=== PATIENT | female | born 1930 | race Caucasian/White ===

== ENCOUNTER 2016-05-31 08:30 | Inpatient (IN) | payer MEDICARE, BC ==
[2016-05-31] MEDS ORDERED: ASPIRIN 81 MG CHEW PO STA (08:49)
[2016-05-31] MEDS ORDERED: NITROGLYCERIN OINT 1 INCH/GM PACKET TOPICAL STA (08:49)
--- NOTE | 2016-05-31 08:54 | ED ---
General Adult HPI - General Chief complaint: Chest Pain Stated complaint: Chest Pain Time Seen by Provider: 05/31/16 08:40 Source: patient, RN notes reviewed Mode of arrival: ambulatory Limitations: no limitations - History of Present Illness Initial comments: This is an 85-year-old female who presents to the emergency department complaining of chest pain intermittently over the last 3 days per patient states it lasts upwards of an hour when it comes on. Patient denies any radiation of the pain. Patient states she denies any nausea or vomiting. Patient denies any diaphoresis. Patient denies any shortness of breath. Patient states on occasion when she is having chest pain she starts coughing hard and coughs up some yellow sputum and then she states it seems to relieve some of the chest pain. Patient denies any fever or chills. Patient denies any abdominal pain patient denies any headache patient denies any numbness weakness. Patient denies any lightheadedness dizziness or near syncopal episode. - Related Data Home Medications Medication Instructions Recorded Confirmed Omeprazole [PriLOSEC] 20 mg PO AC-BRKFST 03/16/14 05/31/16 Potassium Chloride 8 meq PO DAILY 03/16/14 05/31/16 Losartan/Hydrochlorothiazide 1 each PO DAILY 04/01/14 05/31/16 [Losartan-Hctz 100-25 mg Tab] Atorvastatin Calcium [Lipitor] 20 mg PO HS 05/31/16 05/31/16 Docusate Sodium [Dok] 100 - 200 mg PO DAILY 05/31/16 05/31/16 Allergies Allergy/AdvReac Type Severity Reaction Status Date / Time No Known Allergies Allergy Verified 05/31/16 10:05 Review of Systems ROS Statement: Those systems with pertinent positive or pertinent negative responses have been documented in the HPI. ROS Other: All systems not noted in ROS Statement are negative. Past Medical History Past Medical History: GERD/Reflux, Hyperlipidemia, Hypertension Additional Past Medical History / Comment(s): ruptured esophagus History of Any Multi-Drug Resistant Organisms: None Reported Past Surgical History: Appendectomy, Cholecystectomy Past Psychological History: No Psychological Hx Reported Smoking Status: Never smoker Past Alcohol Use History: None Reported Past Drug Use History: None Reported General Exam - General Exam Comments Initial Comments: GENERAL: Patient is well-developed and well-nourished. Patient is nontoxic and well- hydrated and is in mild distress. ENT: Neck is soft and supple. No significant lymphadenopathy is noted. Oropharynx is clear. Moist mucous membranes. Neck has full range of motion without eliciting any pain. EYES: The sclera were anicteric and conjunctiva were pink and moist. Extraocular movements were intact and pupils were equal round and reactive to light. Eyelids were unremarkable. PULMONARY: Unlabored respirations. Good breath sounds bilaterally. No audible rales rhonchi or wheezing was noted. CARDIOVASCULAR: Patient has an irregular heartbeat. ABDOMEN: Soft and nontender with normal bowel sounds. No palpable organomegaly was noted. There is no palpable pulsatile mass. SKIN: Skin is clear with no lesions or rashes and otherwise unremarkable. NEUROLOGIC: Patient is alert and oriented x3. Cranial nerves II through XII are grossly intact. Motor and sensory are also intact. Normal speech, volume and content. Symmetrical smile. MUSCULOSKELETAL: Normal extremities with adequate strength and full range of motion. No lower extremity swelling or edema. No calf tenderness. LYMPHATICS: No significant lymphadenopathy is noted PSYCHIATRIC: Normal psychiatric evaluation. Normal interpersonal interactions appears functionally intact in deals appropriately with others. No signs of depression. No signs of anxiety. Limitations: no limitations Course Vital Signs 05/31/16 05/31/16 05/31/16 08:38 09:18 10:24 Temperature 96.7 F L Pulse Rate 75 75 68 Respiratory 18 18 18 Rate Blood Pressure 167/75 156/73 139/73 O2 Sat by Pulse 97 97 98 Oximetry Medical Decision Making - Medical Decision Making EKG shows atrial fibrillation at 72 bpm QRS is 134 QTC is 464. Patient has a right bundle branch block. Patient has no history of atrial fibrillation the right have no old ekgs. Chest x-ray shows no new abnormality - Lab Data Result diagrams: 05/31/16 08:40 05/31/16 08:40 Lab Results 05/31/16 05/31/16 05/31/16 Range/Units 08:40 08:40 08:40 WBC 4.8 (3.8-10.6) k/uL RBC 4.26 (3.80-5.40) m/uL Hgb 11.7 (11.4-16.0) gm/dL Hct 36.0 (34.0-46.0) % MCV 84.4 (80.0-100.0) fL MCH 27.4 (25.0-35.0) pg MCHC 32.4 (31.0-37.0) g/dL RDW 13.1 (11.5-15.5) % Plt Count 238 (150-450) k/uL Neutrophils % 78 % Lymphocytes % 15 % Monocytes % 4 % Eosinophils % 0 % Basophils % 0 % Neutrophils # 3.8 (1.3-7.7) k/uL Lymphocytes # 0.7 L (1.0-4.8) k/uL Monocytes # 0.2 (0-1.0) k/uL Eosinophils # 0.0 (0-0.7) k/uL Basophils # 0.0 (0-0.2) k/uL PT (9.0-12.0) sec INR (<1.1) APTT (22.0-30.0) sec Sodium 143 (137-145) mmol/L Potassium 4.3 (3.5-5.1) mmol/L Chloride 105 (98-107) mmol/L Carbon Dioxide 21 L (22-30) mmol/L Anion Gap 17 mmol/L BUN 35 H (7-17) mg/dL Creatinine 1.78 H (0.52-1.04) mg/dL Est GFR (MDRD) Af Amer 33 (>60 ml/min/1.73 sqM) Est GFR (MDRD) Non-Af 27 (>60 ml/min/1.73 sqM) Glucose 134 H (74-99) mg/dL Calcium 10.2 (8.4-10.2) mg/dL Magnesium 1.2 L (1.6-2.3) mg/dL Total Bilirubin 1.3 (0.2-1.3) mg/dL AST 20 (14-36) U/L ALT 31 (9-52) U/L Alkaline Phosphatase 93 (38-126) U/L Total Creatine Kinase 42 (30-135) U/L CK-MB (CK-2) 1.4 (0.0-2.4) ng/mL CK-MB (CK-2) Rel Index 3.3 Troponin I 0.061 H* (0.000-0.034) ng/mL NT-Pro-B Natriuret Pep pg/mL Total Protein 7.5 (6.3-8.2) g/dL Albumin 4.5 (3.5-5.0) g/dL 05/31/16 05/31/16 Range/Units 08:40 08:40 WBC (3.8-10.6) k/uL RBC (3.80-5.40) m/uL Hgb (11.4-16.0) gm/dL Hct (34.0-46.0) % MCV (80.0-100.0) fL MCH (25.0-35.0) pg MCHC (31.0-37.0) g/dL RDW (11.5-15.5) % Plt Count (150-450) k/uL Neutrophils % % Lymphocytes % % Monocytes % % Eosinophils % % Basophils % % Neutrophils # (1.3-7.7) k/uL Lymphocytes # (1.0-4.8) k/uL Monocytes # (0-1.0) k/uL Eosinophils # (0-0.7) k/uL Basophils # (0-0.2) k/uL PT 11.5 (9.0-12.0) sec INR 1.2 (<1.1) APTT 23.1 (22.0-30.0) sec Sodium (137-145) mmol/L Potassium (3.5-5.1) mmol/L Chloride (98-107) mmol/L Carbon Dioxide (22-30) mmol/L Anion Gap mmol/L BUN (7-17) mg/dL Creatinine (0.52-1.04) mg/dL Est GFR (MDRD) Af Amer (>60 ml/min/1.73 sqM) Est GFR (MDRD) Non-Af (>60 ml/min/1.73 sqM) Glucose (74-99) mg/dL Calcium (8.4-10.2) mg/dL Magnesium (1.6-2.3) mg/dL Total Bilirubin (0.2-1.3) mg/dL AST (14-36) U/L ALT (9-52) U/L Alkaline Phosphatase (38-126) U/L Total Creatine Kinase (30-135) U/L CK-MB (CK-2) (0.0-2.4) ng/mL CK-MB (CK-2) Rel Index Troponin I (0.000-0.034) ng/mL NT-Pro-B Natriuret Pep 9910 pg/mL Total Protein (6.3-8.2) g/dL Albumin (3.5-5.0) g/dL Disposition Clinical Impression: Chest pain, New onset a-fib Disposition: ADMITTED IP TO THIS HOSP Referrals: Gibson Saldaña MD [Primary Care Provider] - 1-2 days Time of Disposition: 10:35
[2016-05-31 09:08] LABS: Basophils % (A) 0 %; CHCM 32.1; Eosinophils % (A) 0 %; HGB 11.7 gm/dL (11.4-16.0); Luc # (Auto) 0.11; Luc % (Auto) 2; Lymphocytes # (A) 0.7 k/uL (1.0-4.8); Lymphocytes % (A) 15 %; MCH 27.4 pg (25.0-35.0); MCHC 32.4 g/dL (31.0-37.0); MCV 84.4 fL (80.0-100.0); Mean Platelet Volume 7.1; Monocytes # (A) 0.2 k/uL (0-1.0); Monocytes % (A) 4 %; Neutrophils # (A) 3.8 k/uL (1.3-7.7); Neutrophils % (A) 78 %; RBC 4.26 m/uL (3.80-5.40); RDW 13.1 % (11.5-15.5); WBC 4.8 k/uL (3.8-10.6); WBC (Perox) 5.22
[2016-05-31 09:22] LABS: Calcium 10.2 mg/dL (8.4-10.2); Magnesium 1.2 mg/dL (1.6-2.3); Potassium 4.3 mmol/L (3.5-5.1); Total Bilirubin 1.3 mg/dL (0.2-1.3); Total Protein 7.5 g/dL (6.3-8.2)
[2016-05-31 09:32] LABS: INR 1.2 (<1.1); Partial Thromboplastin Time 23.1 sec (22.0-30.0); Prothrombin Time 11.5 sec (9.0-12.0)
--- NOTE | 2016-05-31 09:34 | XR ---
EXAMINATION TYPE: XR chest 2V DATE OF EXAM: 05/31/2016 9:27 AM COMPARISON: 10/13/1999 TECHNIQUE: PA and lateral views submitted. HISTORY: Pain FINDINGS: The lungs are clear and there is no pneumothorax, pleural effusion, or focal pneumonia. Somewhat co arsened interstitium. Arthropathy of the shoulders and scoliotic curvature of the spine. Degenerative changes noted. IMPRESSION: 1. No acute process. Correlate for interstitial chronic lung disease.
[2016-05-31 09:47] LABS: Creatine Kinase MB 1.4 ng/mL (0.0-2.4)
[2016-05-31 09:51] LABS: Troponin I 0.061 ng/mL (0.000-0.034)
[2016-05-31] MEDS ORDERED: NITROGLYCERIN SL TABS 0.4 MG TAB SUBLINGUAL PRN (10:38)
[2016-05-31] MEDS: MAG HYDROX/AL HYDROX/SIMETH 30 ML CUP PO SCH ×4 (15:07→23:20)
[2016-05-31 15:52] LABS: Creatine Kinase MB 1.1 ng/mL (0.0-2.4)
[2016-05-31 15:55] LABS: Troponin I 0.055 ng/mL (0.000-0.034)
[2016-05-31] MEDS: NITROGLYCERIN OINT 1 INCH/GM PACKET TOPICAL SCH (17:37)
[2016-05-31] MEDS: MAGNESIUM SULFATE-D5W PMX 1 GM in DEXTROSE/WATER 1 100ML.BAG IVPB SCH ×2 (18:59→21:28)
[2016-05-31 20:25] VITALS: RESP 16
[2016-05-31 20:59] LABS: Creatine Kinase MB 1.2 ng/mL (0.0-2.4)
[2016-05-31] MEDS ORDERED: ATORVASTATIN 20 MG TAB PO SCH (21:00)
[2016-05-31 21:14] LABS: Troponin I 0.063 ng/mL (0.000-0.034)
[2016-05-31] MEDS ORDERED: DOBUTamine DRIP for NUC MED 500 MG in DEXTROSE/WATER 1 250ML.BAG IV ONE (22:44)
[2016-05-31] MEDS: PANTOPRAZOLE 40 MG/10 ML VIAL IVP SCH (23:20)
--- NOTE | 2016-05-31 23:32 | HP ---
DATE OF ADMISSION: CHIEF COMPLAINT: Re-evaluation. HISTORY OF PRESENT ILLNESS: This 85-year-old female was admitted to the hospital with chest pain of 3 days' duration. The patient says the pain is intermittent; pain is lower sternal, high epigastric area. The patient said that during last night the pain got quite intense. The patient had subsequently vomiting, one episode, with relief of the discomfort. The patient has had similar symptoms in the past. She was felt to have gastroesophageal reflux with symptoms. The patient has history of hypertension. Patient has not been noted to have any atrial fibrillation. Patient is noted to be in atrial fibrillation today. The patient has no other associated symptoms of shortness of breath, diaphoresis, radiation of pain. The patient is afraid to eat because she feels it makes the pain worse. Patient denies any fever, chills, cough, congestion. Past medical history is significant for hypertension of long duration. The patient also has a history of colonic diverticulosis with a previous episode of diverticulitis, has a history of hyperlipidemia and severe degenerative arthritis. PERSONAL HISTORY: Nonsmoker. No alcohol. Medications include: 1. Omeprazole 20 mg daily. 2. Atorvastatin 20 mg daily. 3. Potassium chloride 8 mEq daily. 4. Hyzaar 100/25 one daily. 5. Tramadol for pain. SOCIAL HISTORY: Patient is and lives with her spouse. FAMILY MEDICAL HISTORY: Has one younger sister who has had a history of asthma. The patient has another sibling who ; he had a history of Parkinson's. There is family history of coronary artery disease late in life. REVIEW OF SYSTEMS: NEURO: Denies any headaches, dizziness. No double vision, blurred vision. No symptoms of TIA, syncope, seizures. PSYCH: No anxiety. CARDIAC: Present complaint of chest pain. No shortness of breath, cough, hemoptysis. GI: One episode of nausea and vomiting. Some heartburn. No diarrhea, constipation, hematochezia, melena. : No symptoms of dysuria, hematuria, urgency, frequency. EXTREMITIES: Denies pain, edema. CONSTITUTIONAL: No fever or chills. PHYSICAL EXAMINATION: Pleasant female in no distress. Vital signs reveal temperature 96.7, pulse 75, respirations 18, blood pressure 167/75, pulse ox 97% on 2 L. HEENT: Normocephalic. NECK: No JVD. Chest is clear to auscultation, percussion. Increased ( ) bilateral. CARDIAC: Distant heart sounds. S1, S2 with no gallops. Systolic murmur 2/6, left sternal border. ABDOMEN: Mild tenderness, high epigastric area. Bowel sounds active. Previous surgical scar of cholecystectomy. EXTREMITIES: Trace edema. Good pulses, both upper and lower extremities. Significant degenerative arthritic changes of the knees. Neurologically awake, alert, oriented with well-coordinated movements. Laboratory assessment: CBC which was normal. PT/PTT were normal. Electrolytes are normal. BUN 35, creatinine 1.78. Glucose was 134. Magnesium was 1.2. Troponin 0.061. Albumin 4.5. EKG: No acute changes except for atrial fibrillation. Chest x-ray reveals no acute changes. ASSESSMENT: 1. Chest pain, probably gastroesophageal. Cannot rule out cardiac. 2. History of hypertension. 3. Chronic kidney disease, stage III. 4. Degenerative arthritis. PLAN: Patient at present will be given Maalox, Protonix, IV hydration. Continue to monitor troponins and CPK, which have remained stable, not indicative of an acute infarct. Patient's BNP is elevated with no clear evidence of CHF. We will schedule the patient for a stress echo. Patient's condition discussed with the patient. Prognosis guarded.
[2016-06-01] MEDS: NITROGLYCERIN OINT 1 INCH/GM PACKET TOPICAL SCH ×3 (00:15→11:02)
[2016-06-01] MEDS: MAG HYDROX/AL HYDROX/SIMETH 30 ML CUP PO SCH ×3 (04:33→11:03)
[2016-06-01] MEDS ORDERED: DOBUTamine DRIP for NUC MED 500 MG in DEXTROSE/WATER 1 250ML.BAG IV ONE (05:00)
[2016-06-01 06:40] LABS: Calcium 9.5 mg/dL (8.4-10.2); Potassium 4.5 mmol/L (3.5-5.1)
[2016-06-01] MEDS ORDERED: PANTOPRAZOLE 40 MG TABLET PO SCH (07:30)
[2016-06-01] MEDS ORDERED: APIXABAN 2.5 MG TABLET PO SCH (09:00)
[2016-06-01] MEDS ORDERED: LOSARTAN-HCTZ 50-12.5 MG 1 EACH TAB PO SCH (09:00)
[2016-06-01] MEDS ORDERED: ASPIRIN 81 MG CHEW PO SCH (09:00)
[2016-06-01] MEDS ORDERED: ASPIRIN 325 MG TAB PO SCH (09:00)
[2016-06-01] MEDS ORDERED: POTASSIUM CHLORIDE ORAL LIQUID 40 MEQ/30 ML CUP PO SCH (09:00)
[2016-06-01] MEDS: PANTOPRAZOLE 40 MG/10 ML VIAL IVP SCH (11:02)
[2016-06-01 11:04] VITALS: BP 107/65; PULSE 70; TEMP 96.3
--- NOTE | 2016-06-01 11:26 | ECHOS ---
DATE OF SERVICE: 06/01/2016 AGE: 85Y SEX: F HT: 61" WT: 168 lbs. Protocol Husam: Others: Dobutamine Stress Echo Stage: 2 Dur. of Exercise: 4:00 *Heart Rate Blood Pressure *Rest: 70 Rest: 106/49 * *Max. Achieved: 134 Maximum BP: 130/64 85% PMHR: 114 100% PMHR: 134 *METS: - INDICATIONS: Chest pain. MEDICATIONS: Omeprazole, potassium chloride, losartan, docusate sodium, atorvastatin, calcium. STRESS DATA: Pretesting physical examination showed a heart rate of 70, pressure is 106/49 mmHg. Baseline EKG shows sinus rhythm. Dobutamine infusion at the dose of 10 mcg/kg per minute was initiated and increased to 10 mcg/kg per minute per protocol. Max heart rate was 134, which is about 100% of maximum predicted heart rate. Maximum blood pressure was 150-64 mmHg. Clinically, the patient did not have any symptoms and the EKG did not show any significant ST or T-wave echocardiogram images consistent with ischemia. ECHOCARDIOGRAM IMAGES: On echocardiogram images from parasternal long axis view, parasternal short axis view, apical 4 chambers and apical 2 chambers were obtained as the baseline images, at the peak of the heart rate, as well as on recovery and the echocardiogram images showed good augmentation in the left ventricular systolic function without any evidence of wall motion abnormalities consistent with ischemia. CONCLUSION: 1. Normal EKG in response to dobutamine. 2. Normal echocardiogram in response to dobutamine. 3. Essentially normal dobutamine stress echocardiogram for this patient.
--- NOTE | 2016-06-02 05:45 | PN ---
CHIEF COMPLAINT: Re-evaluation. HISTORY OF PRESENT ILLNESS: An 85-year-old female who presents to the hospital with chest pain, which is retrosternal and epigastric area at times a heaviness. She had an episode of some vomiting with relief. Patient has underlying history of hypertension, hyperlipidemia and symptoms suggestive of gastroesophageal reflux. She has had a previous history of cholecystectomy. The patient following admission had cardiac enzymes monitor which revealed elevated baseline troponins with no change in the CPK. The patient this morning is feeling fairly well. She denies any chest pain. Rhythm has been atrial fibrillation, stable. Patient denied any other symptoms. REVIEW OF SYSTEMS: NEURO: Denies any headaches, dizziness. PSYCH: No anxiety. CARDIAC: No chest pain, angina, palpitation. RESPIRATORY: No shortness of breath, cough. GI: No nausea, vomiting, abdominal pain, diarrhea. : No symptoms of dysuria, hematuria. EXTREMITIES: Denies pain or edema. CONSTITUTIONAL: No fever or chills. PHYSICAL EXAMINATION: Pleasant female in no distress. Vital signs revealed temperature 97.5, pulse 67, respirations 16, blood pressure 100/56, pulse ox 97% on room air. HEENT: Normocephalic. NECK: No JVD. CHEST: Clear to auscultation. CARDIAC: Normal S1, S2 with no gallops, no murmurs. Irregular rhythm. ABDOMEN: Soft. Bowel sounds are active. Extremities reveal no edema. The patient has significant degenerative arthritis knees. LABORATORY ASSESSMENT: Electrolytes which are normal. BUN 33, creatinine 1.56. Patient had a stress echo which does not reveal any suggestion of ischemia. ASSESSMENT: 1. Chest pain, probably gastroesophageal. 2. History of hypertension. 3. Hyperlipidemia on treatment. 4. Chronic kidney disease, stage III. 5. Degenerative arthritis, knees. PLAN: The patient is stable and in view of the negative stress test and response to antacids, it is ( ) that patient's symptoms are more related to gastroesophageal reflux and the patient is going to be discharged home on continued treatment with Protonix and using Maalox a.c. meals.
== END 2016-06-01 15:22 | disposition home or self-care (01) | DRG 392 ==
LOC: EC 08:30 → 6SEL 10:38 → OBSVTOIN 22:59
PROVIDERS: ADMIT Internal Medicine; ATTEND Internal Medicine
DX: K21.9 Gastro-esophageal reflux disease without esophagitis (principal); I48.91 Unspecified atrial fibrillation; N18.3 Chronic kidney disease, stage 3 (moderate); E78.5 Hyperlipidemia, unspecified; I45.10 Unspecified right bundle-branch block; I12.9 Hypertensive chronic kidney disease with stage 1 through stage 4 chronic kidney disease, or unspecified chronic kidney disease; K57.30 Diverticulosis of large intestine without perforation or abscess without bleeding; M19.90 Unspecified osteoarthritis, unspecified site; Z79.899 Other long term (current) drug therapy; Z82.49 Family history of ischemic heart disease and other diseases of the circulatory system
CPT/HCPCS: 36415; 71020; 80048; 80053; 80061; 82550; 82553; 83735; 83880; 84484; 85025; 85610; 85730; 87040; 93005; 93017; 93350; 94760; 96366; 99285

== ENCOUNTER → 2016-12-27 | Outpatient (CLI) | payer MEDICARE, BC ==
--- NOTE | 2016-12-27 10:09 | US ---
EXAMINATION TYPE: US kidneys/renal and bladder DATE OF EXAM: 12/27/2016 COMPARISON: NONE CLINICAL HISTORY: N17.9 Acute renal failure, N18.3 CKF stage 3. EXAM MEASUREMENTS: Right Kidney: 8.7 x 3.9 x 4.1 cm Left Kidney: 10.3 x 4.3 x 3.7 cm Right Kidney: Measuring small. No hydronephrosis, no cystic or solid mass visualized Left Kidney: Few cystic areas visualized in the upper pole, largest measuring 3.8 x 4.1 x 4.2 cm Bladder: Not fully distended, wnl as visualized Bilateral Jets seen: No, jets not visualized bilaterally Incidental finding: Spleen measuring large at 14.6 cm Some cortical thinning in right kidney is present. Spleen is enlarged in size measuring 14.6 cm on lo ng axis without focal intrasplenic mass. A few simple appearing cysts are scattered throughout the le ft kidney. Bladder is poorly distended and thus suboptimally evaluated. IMPRESSION: No hydronephrosis is evident bilaterally. Some cortical thinning in right kidney is seen which is sli ghtly smaller in size. Splenomegaly is noted and may warrant further clinical workup.
== END | disposition home or self-care (01) ==
LOC: RADUSWWP 09:27
PROVIDERS: ATTEND Internal Medicine
DX: R16.1 Splenomegaly, not elsewhere classified (principal); N18.3 Chronic kidney disease, stage 3 (moderate)
CPT/HCPCS: 76770

== ENCOUNTER 2017-01-12 11:44 | Inpatient (IN) | payer MEDICARE, BC ==
[2017-01-12] MEDS ORDERED: SODIUM CHLORIDE 0.9% 1,000 ML IV STA ×3 (12:21→15:05)
--- NOTE | 2017-01-12 12:24 | ED ---
Abdominal Pain HPI - General Chief Complaint: Abdominal Pain Stated Complaint: Abdominal pain/weakness Time Seen by Provider: 01/12/17 12:05 Source: patient, family Mode of arrival: ambulatory Limitations: no limitations - History of Present Illness Initial Comments: This is a 86-year-old female history of A. fib and renal failure from earlier admissions this year who is brought in by family because of decreased oral intake lethargy and dizziness. Apparently is started over the past couple weeks. The patient at this time is a poor historian her family states she does not want to eat. She complains some abdominal pain she points to the lower left quadrant. No reports of cough fevers chills nausea vomiting sweats dysuria hematuria or constipation diarrhea. She has had memory issues recently also. No trauma is reported. MD Complaint: abdominal pain - Related Data Home Medications Medication Instructions Recorded Confirmed Omeprazole [PriLOSEC] 20 mg PO AC-BID 03/16/14 01/12/17 Potassium Chloride 8 meq PO DAILY 03/16/14 01/12/17 Losartan/Hydrochlorothiazide 1 tab PO DAILY 04/01/14 01/12/17 [Losartan-Hctz 100-25 mg Tab] Atorvastatin Calcium [Lipitor] 20 mg PO HS 05/31/16 01/12/17 Warfarin Sodium [Coumadin] 4 mg PO DAILY 01/12/17 01/12/17 Allergies Allergy/AdvReac Type Severity Reaction Status Date / Time No Known Allergies Allergy Verified 01/12/17 12:23 Review of Systems ROS Statement: Those systems with pertinent positive or pertinent negative responses have been documented in the HPI. ROS Other: All systems not noted in ROS Statement are negative. 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 History of Any Multi-Drug Resistant Organisms: None Reported Past Surgical History: Appendectomy, Cholecystectomy, Tonsillectomy Additional Past Surgical History / Comment(s): EGD/colonoscopy Past Anesthesia/Blood Transfusion Reactions: No Reported Reaction, Motion Sickness Past Psychological History: No Psychological Hx Reported Smoking Status: Never smoker Past Alcohol Use History: None Reported Past Drug Use History: None Reported - Past Family History Father Family Medical History: Myocardial Infarction (MO) Additional Family Medical History / Comment(s): Father at the age of 62 yrs from a MO. Mother Family Medical History: No Reported History Additional Family Medical History / Comment(s): Mother was healthy and at the age of 89yrs. General Exam - General Exam Comments Initial Comments: This is a well-developed asthenic appearing female who does answer slowly seems to be awake and alert and oriented. Limitations: no limitations General appearance: alert, in no apparent distress Head exam: Present: atraumatic, normocephalic, normal inspection Eye exam: Present: normal appearance, PERRL, EOMI. Absent: scleral icterus, conjunctival injection, periorbital swelling ENT exam: Present: mucous membranes dry Neck exam: Present: normal inspection. Absent: tenderness, meningismus, lymphadenopathy Respiratory exam: Present: normal lung sounds bilaterally. Absent: respiratory distress, wheezes, rales, rhonchi, stridor Cardiovascular Exam: Present: irregular rhythm. Absent: systolic murmur, diastolic murmur, rubs, gallop, clicks GI/Abdominal exam: Present: soft, distended, tenderness (Slightly distended with increased tympany and mild left lower quadrant tenderness palpation), normal bowel sounds. Absent: guarding, rebound, rigid, bruit, pulsatile mass, hernia Rectal exam: Present: deferred Extremities exam: Present: normal inspection, full ROM, normal capillary refill. Absent: tenderness, pedal edema, joint swelling, calf tenderness Back exam: Present: normal inspection Neurological exam: Present: alert, oriented X3, CN II-XII intact Psychiatric exam: Present: normal affect, normal mood Skin exam: Present: warm, dry, intact, normal color. Absent: rash Course Vital Signs 01/12/17 01/12/17 01/12/17 11:55 12:06 12:16 Temperature 97.4 F L Pulse Rate 100 92 92 Respiratory 15 16 16 Rate Blood Pressure 64/41 75/49 73/46 O2 Sat by Pulse 98 97 Oximetry 01/12/17 01/12/17 01/12/17 12:21 12:36 12:51 Temperature Pulse Rate 92 83 83 Respiratory 16 20 20 Rate Blood Pressure 77/49 79/49 78/46 O2 Sat by Pulse 98 100 99 Oximetry 01/12/17 01/12/17 01/12/17 13:06 13:53 14:23 Temperature Pulse Rate 80 92 71 Respiratory 18 20 18 Rate Blood Pressure 81/51 87/49 86/53 O2 Sat by Pulse 99 95 95 Oximetry 01/12/17 01/12/17 14:40 15:28 Temperature Pulse Rate 91 88 Respiratory 20 18 Rate Blood Pressure 87/50 90/45 O2 Sat by Pulse 96 96 Oximetry - Reevaluation(s) Reevaluation #1: 01/12/17 15:48 I did reevaluate patient several occasions he remains awake and more alert after IV hydration. Her blood pressure initially did not improve much with fluids and later did become the. Medical Decision Making - Lab Data Result diagrams: 01/12/17 12:10 01/12/17 12:10 Lab Results 01/12/17 01/12/17 01/12/17 Range/Units 12:10 12:10 12:10 WBC 9.2 (3.8-10.6) k/uL RBC 4.32 (3.80-5.40) m/uL Hgb 11.5 (11.4-16.0) gm/dL Hct 36.8 (34.0-46.0) % MCV 85.1 (80.0-100.0) fL MCH 26.5 (25.0-35.0) pg MCHC 31.2 (31.0-37.0) g/dL RDW 14.6 (11.5-15.5) % Plt Count 381 (150-450) k/uL Neutrophils % (Manual) 64 % Band Neutrophils % 10 % Lymphocytes % (Manual) 17 % Monocytes % (Manual) 8 % Eosinophils % (Manual) 1 % Metamyelocytes % 1 % Neutrophils # (Manual) 6.80 (1.3-7.7) k/uL Lymphocytes # (Manual) 1.56 (1.0-4.8) k/uL Monocytes # (Manual) 0.74 (0-1.0) k/uL Eosinophils # (Manual) 0.09 (0-0.7) k/uL Metamyelocytes # (Man) 0.09 H (0) k/uL Nucleated RBCs 0 (0-0) /100 WBC Hypochromasia Slight Poikilocytosis (manual Present Anisocytosis (manual) Present PT (9.0-12.0) sec INR (<1.2) APTT (22.0-30.0) sec Sodium 134 L (137-145) mmol/L Potassium 3.0 L* (3.5-5.1) mmol/L Chloride 103 (98-107) mmol/L Carbon Dioxide 12 L (22-30) mmol/L Anion Gap 19 mmol/L BUN 87 H* (7-17) mg/dL Creatinine 2.64 H (0.52-1.04) mg/dL Est GFR (MDRD) Af Amer 21 (>60 ml/min/1.73 sqM) Est GFR (MDRD) Non-Af 17 (>60 ml/min/1.73 sqM) Glucose 127 H (74-99) mg/dL Plasma Lactic Acid Allen (0.7-2.0) mmol/L Calcium 9.1 (8.4-10.2) mg/dL Magnesium (1.6-2.3) mg/dL Total Bilirubin 0.4 (0.2-1.3) mg/dL AST 15 (14-36) U/L ALT 26 (9-52) U/L Alkaline Phosphatase 66 (38-126) U/L Ammonia (<30) umol/L Total Creatine Kinase <20 L (30-135) U/L CK-MB (CK-2) 1.7 (0.0-2.4) ng/mL CK-MB (CK-2) Rel Index Troponin I 0.018 (0.000-0.034) ng/mL Total Protein 6.2 L (6.3-8.2) g/dL Albumin 3.6 (3.5-5.0) g/dL Amylase 40 (30-110) U/L Lipase 331 H (23-300) U/L Urine Color Urine Appearance (Clear) Urine pH (5.0-8.0) Ur Specific [place] (1.001-1.035) Urine Protein (Negative) Urine Glucose (UA) (Negative) Urine Ketones (Negative) Urine Blood (Negative) Urine Nitrite (Negative) Urine Bilirubin (Negative) Urine Urobilinogen (<2.0) mg/dL Ur Leukocyte Esterase (Negative) Urine RBC (0-5) /hpf Urine WBC (0-5) /hpf Amorphous Sediment (None) /hpf Urine Bacteria (None) /hpf Hyaline Casts (0-2) /lpf Urine Mucus (None) /hpf 01/12/17 01/12/17 01/12/17 Range/Units 12:10 12:10 12:10 WBC (3.8-10.6) k/uL RBC (3.80-5.40) m/uL Hgb (11.4-16.0) gm/dL Hct (34.0-46.0) % MCV (80.0-100.0) fL MCH (25.0-35.0) pg MCHC (31.0-37.0) g/dL RDW (11.5-15.5) % Plt Count (150-450) k/uL Neutrophils % (Manual) % Band Neutrophils % % Lymphocytes % (Manual) % Monocytes % (Manual) % Eosinophils % (Manual) % Metamyelocytes % % Neutrophils # (Manual) (1.3-7.7) k/uL Lymphocytes # (Manual) (1.0-4.8) k/uL Monocytes # (Manual) (0-1.0) k/uL Eosinophils # (Manual) (0-0.7) k/uL Metamyelocytes # (Man) (0) k/uL Nucleated RBCs (0-0) /100 WBC Hypochromasia Poikilocytosis (manual Anisocytosis (manual) PT 12.3 H (9.0-12.0) sec INR 1.2 H (<1.2) APTT 24.2 (22.0-30.0) sec Sodium (137-145) mmol/L Potassium (3.5-5.1) mmol/L Chloride (98-107) mmol/L Carbon Dioxide (22-30) mmol/L Anion Gap mmol/L BUN (7-17) mg/dL Creatinine (0.52-1.04) mg/dL Est GFR (MDRD) Af Amer (>60 ml/min/1.73 sqM) Est GFR (MDRD) Non-Af (>60 ml/min/1.73 sqM) Glucose (74-99) mg/dL Plasma Lactic Acid Allen 1.7 (0.7-2.0) mmol/L Calcium (8.4-10.2) mg/dL Magnesium 0.8 L* (1.6-2.3) mg/dL Total Bilirubin (0.2-1.3) mg/dL AST (14-36) U/L ALT (9-52) U/L Alkaline Phosphatase (38-126) U/L Ammonia 44 H (<30) umol/L Total Creatine Kinase (30-135) U/L CK-MB (CK-2) (0.0-2.4) ng/mL CK-MB (CK-2) Rel Index Troponin I (0.000-0.034) ng/mL Total Protein (6.3-8.2) g/dL Albumin (3.5-5.0) g/dL Amylase (30-110) U/L Lipase (23-300) U/L Urine Color Urine Appearance (Clear) Urine pH (5.0-8.0) Ur Specific [place] (1.001-1.035) Urine Protein (Negative) Urine Glucose (UA) (Negative) Urine Ketones (Negative) Urine Blood (Negative) Urine Nitrite (Negative) Urine Bilirubin (Negative) Urine Urobilinogen (<2.0) mg/dL Ur Leukocyte Esterase (Negative) Urine RBC (0-5) /hpf Urine WBC (0-5) /hpf Amorphous Sediment (None) /hpf Urine Bacteria (None) /hpf Hyaline Casts (0-2) /lpf Urine Mucus (None) /hpf 01/12/17 Range/Units 13:50 WBC (3.8-10.6) k/uL RBC (3.80-5.40) m/uL Hgb (11.4-16.0) gm/dL Hct (34.0-46.0) % MCV (80.0-100.0) fL MCH (25.0-35.0) pg MCHC (31.0-37.0) g/dL RDW (11.5-15.5) % Plt Count (150-450) k/uL Neutrophils % (Manual) % Band Neutrophils % % Lymphocytes % (Manual) % Monocytes % (Manual) % Eosinophils % (Manual) % Metamyelocytes % % Neutrophils # (Manual) (1.3-7.7) k/uL Lymphocytes # (Manual) (1.0-4.8) k/uL Monocytes # (Manual) (0-1.0) k/uL Eosinophils # (Manual) (0-0.7) k/uL Metamyelocytes # (Man) (0) k/uL Nucleated RBCs (0-0) /100 WBC Hypochromasia Poikilocytosis (manual Anisocytosis (manual) PT (9.0-12.0) sec INR (<1.2) APTT (22.0-30.0) sec Sodium (137-145) mmol/L Potassium (3.5-5.1) mmol/L Chloride (98-107) mmol/L Carbon Dioxide (22-30) mmol/L Anion Gap mmol/L BUN (7-17) mg/dL Creatinine (0.52-1.04) mg/dL Est GFR (MDRD) Af Amer (>60 ml/min/1.73 sqM) Est GFR (MDRD) Non-Af (>60 ml/min/1.73 sqM) Glucose (74-99) mg/dL Plasma Lactic Acid Allen (0.7-2.0) mmol/L Calcium (8.4-10.2) mg/dL Magnesium (1.6-2.3) mg/dL Total Bilirubin (0.2-1.3) mg/dL AST (14-36) U/L ALT (9-52) U/L Alkaline Phosphatase (38-126) U/L Ammonia (<30) umol/L Total Creatine Kinase (30-135) U/L CK-MB (CK-2) (0.0-2.4) ng/mL CK-MB (CK-2) Rel Index Troponin I (0.000-0.034) ng/mL Total Protein (6.3-8.2) g/dL Albumin (3.5-5.0) g/dL Amylase (30-110) U/L Lipase (23-300) U/L Urine Color Yellow Urine Appearance Clear (Clear) Urine pH 5.5 (5.0-8.0) Ur Specific [place] 1.013 (1.001-1.035) Urine Protein 1+ H (Negative) Urine Glucose (UA) Negative (Negative) Urine Ketones Negative (Negative) Urine Blood Negative (Negative) Urine Nitrite Negative (Negative) Urine Bilirubin Negative (Negative) Urine Urobilinogen <2.0 (<2.0) mg/dL Ur Leukocyte Esterase Negative (Negative) Urine RBC <1 (0-5) /hpf Urine WBC 1 (0-5) /hpf Amorphous Sediment Rare H (None) /hpf Urine Bacteria Rare H (None) /hpf Hyaline Casts 1 (0-2) /lpf Urine Mucus Rare H (None) /hpf - EKG Data -: EKG Interpreted by Me (Atrial fibrillation with a rate 93 QRS duration 132 QT since QTC of 370/462) - Radiology Data Radiology results: report reviewed (Imaging was reviewed. I did discuss case with radiologist was evidence of a distal mechanical bowel obstruction at the level of the sigmoid colon. Question evidence of findings in the left hip region indicating possible metastasis.), image reviewed Critical Care Time Critical Care Time: Yes Critical Care Time: 35 is a critical care time which includes initial presentation with history physical labs x-rays reevaluation patient several occasions. Discussed with the patient family regarding findings discussed with the admitting physician Dr. Woody as well as Dr. Saldaña. Disposition Clinical Impression: Large bowel obstruction, Hypotensive episode, Renal failure syndrome, Hypokalemia, Hypomagnesemia syndrome, Increased ammonia level Disposition: ADMITTED IP TO THIS HOSP Condition: Serious Referrals: Gibson Saldaña MD [Primary Care Provider] - 1-2 days
[2017-01-12 12:39] LABS: CH 26.5; CHCM 31.3; HCT 36.8 % (34.0-46.0); HDW 2.63; HGB 11.5 gm/dL (11.4-16.0); Hypochromasia Slight; Immature Gran Flag Marked; MCH 26.5 pg (25.0-35.0); MCHC 31.2 g/dL (31.0-37.0); MCV 85.1 fL (80.0-100.0); Mean Platelet Volume 7.2; RBC 4.32 m/uL (3.80-5.40); RDW 14.6 % (11.5-15.5); WBC 9.2 k/uL (3.8-10.6); WBC (Perox) 9.26
[2017-01-12 12:46] LABS: Calcium 9.1 mg/dL (8.4-10.2); INR 1.2 (<1.2); Partial Thromboplastin Time 24.2 sec (22.0-30.0); Prothrombin Time 12.3 sec (9.0-12.0); Total Bilirubin 0.4 mg/dL (0.2-1.3); Total Protein 6.2 g/dL (6.3-8.2)
[2017-01-12 13:01] LABS: Creatine Kinase <20 U/L (30-135)
[2017-01-12 13:14] LABS: Creatine Kinase MB 1.7 ng/mL (0.0-2.4); Troponin I 0.018 ng/mL (0.000-0.034)
[2017-01-12] MEDS ORDERED: MAGNESIUM SULFATE-D5W PMX 1 GM in DEXTROSE/WATER 1 100ML.BAG IVPB ONE (13:29)
[2017-01-12 13:52] LABS: Add Differential Manual Differential
[2017-01-12 13:58] LABS: Band Neutrophils % 10 %; Metamyelocytes % 1 %; Nucleated Red Blood Cells 0 /100 WBC (0-0); Total Cells Counted 200
[2017-01-12 14:12] LABS: Amorphous Sediment,Urine Rare /hpf; Appearance,Urine Clear (Clear); Bacteria,Urine Rare /hpf; Bilirubin,Urine Negative (Negative); Glucose,Urine (UA) Negative (Negative); Ketones,Urine Negative (Negative); Leukocyte Esterase,Urine Negative (Negative); Mucus,Urine Rare /hpf; Nitrite,Urine Negative (Negative); PH, Urine 5.5 (5.0-8.0); Particle Count 4790; Protein,Urine 1+ (Negative); RBC,Urine <1 /hpf (0-5); Specific Gravity,Urine 1.013 (1.001-1.035); UA Billing (MACRO vs. MICRO) MICRO; Urobilinogen,Urine <2.0 mg/dL (<2.0); WBC,Urine 1 /hpf (0-5)
--- NOTE | 2017-01-12 14:34 | CT ---
EXAMINATION TYPE: CT brain wo con DATE OF EXAM: 01/12/2017 COMPARISON: NONE HISTORY: Patient poor hisorian. Patient "is here to find out what is wrong." Physician diagnosis: Pain CT DLP: 836.4 mGycm Automated exposure control for dose reduction was used. FINDINGS: There is atherosclerotic change of the vasculature noted. Moderate generalized degenerative change with periventricular low attenuation which is nonspecific bu t most typical remote microvascular ischemia. No midline shift. No acute hemorrhage. Low-attenuation the right occipital lobe noted. Findings suggest remote ischemia. IMPRESSION: DEGENERATIVE AND REMOTE ISCHEMIC CHANGE WITH NO ACUTE INTRACRANIAL HEMORRHAGE OR MASS EFFECT.
[2017-01-12] MEDS ORDERED: SODIUM CHLORIDE 0.9% 1,000 ML IV ONE ×2 (14:41→20:51)
--- NOTE | 2017-01-12 14:41 | CT ---
EXAMINATION TYPE: CT abdomen pelvis wo con DATE OF EXAM: 01/12/2017 COMPARISON: NONE HISTORY: Patient poor historian. Patient "is here to find out what is wrong." Physician diagnosis: Pain. CT DLP: 432.9 mGycm Automated exposure control for dose reduction was used. TECHNIQUE: Helical acquisition of images was performed from the lung bases through the pelvis. FINDINGS: LUNG BASES: Single calcified right middle lobe granuloma is identified. Nodular lingular probable ate lectasis is seen as well as dependent bibasilar subsegmental atelectasis. Partial visualization of at least two-vessel coronary artery disease and cardiac valvular calcifications. LIVER/GB: No significant abnormality is appreciated. Gallbladder surgically absent. PANCREAS: No significant abnormality is seen. SPLEEN: Small splenule is seen posterior to the [place] spleen spleen is prominent in size but does no t fit criteria for spinal megaly measuring 13 cm in greatest sagittal dimension. ADRENALS: No significant abnormality is seen. KIDNEYS: Simple left renal cysts measure 1.4 cm and 3.4 cm. FREE AIR: No free air is visualized RETROPERITONEAL ADENOPATHY: None visualized REPRODUCTIVE ORGANS: No significant abnormality is seen URINARY BLADDER: No significant abnormality is seen. PELVIC ADENOPATHY: None visualized. OSSEOUS STRUCTURES: There is a mottled appearance of the bone marrow of the left femur may represent preferential osteopenia, however bone marrow replacement process is also possible as there is similar appearance of the iliac wings to lesser degree. No suspicious osseous lesions within the visualized axial spine.. Moderate femoral acetabular osteoarthropathy is demonstrated as subchondral cysts of th e acetabulum and femoral heads, subchondral sclerosis, and cephalad joint space narrowing. No evidenc e of flattening of the femoral heads to suggest avascular necrosis. Multilevel degenerative disc dise ase of the thoracolumbar spine is demonstrated as well as grade 2 anterolisthesis of L5 on S1 with bi lateral pars intraarticularis defects. BOWEL: Mechanical large bowel obstruction is seen with a large bowel measuring up to 7.2 cm. Large b owel is nearly completely fluid-filled containing differential air-fluid levels. No pneumatosis coli. There is narrowing within the distal sigmoid with peripheral areas of hyperattenuation that could re present surgical anastomotic site, slightly atypical appearing. Distal to this the sigmoid colon and rectum are decompressed and do not contain air. Small bowel remains nondilated. No mesenteric congest ion or engorgement of the vasa recta are seen. No portal venous gas. OTHER: Moderate atheromatous changes are seen of the abdominal aorta and its branches. Findings relayed to the ordering ER physician Dr. Alegre at approximately 1431 January 12, 2017. IMPRESSION: 1. MECHANICAL LARGE BOWEL OBSTRUCTION WITH NARROWING OF THE DISTAL SIGMOID COLON WITH HIGH DENSITY MA TERIAL THAT MAY RELATE TO PRIOR ANASTOMOTIC SITE AND ANASTOMOTIC STRICTURE. NO CURRENT EVIDENCE OF PN EUMATOSIS COLI OR PORTAL VENOUS GAS TO INDICATE ISCHEMIA. 2. MODERATE APPEARANCE OF THE LEFT FEMORAL HEAD AND TO A LESSER DEGREE THE ILIAC BONES AND MAY REPRES ENT PREFERENTIAL OSTEOPENIA, HOWEVER METASTASIS IS ALSO A CONSIDERATION.
--- NOTE | 2017-01-12 14:46 | XR ---
EXAMINATION TYPE: XR chest 2V DATE OF EXAM: 01/12/2017 COMPARISON: 05/31/2016 HISTORY: 86-year-old female with abdominal pain and weakness TECHNIQUE: AP and lateral views FINDINGS: Low lung volumes with crowded vascular markings. Heart is normal size. Mild elongation of the aorta w ith atherosclerotic arch calcifications. Diffuse interstitial densities appear slightly increased. Op acities at both lung bases level more strandy configuration. No pleural effusion or santos consolidati on. IMPRESSION: Diffuse interstitial changes appear in part chronic. Correlate for possible etiologies including bron chitis, chronic asthma, atypical pneumonias, underlying fibrosis. Strandy atelectasis in the lower scot ngs. No focal infiltrate seen.
[2017-01-12] MEDS: POTASSIUM CHLORIDE 20 MEQ, LIDOCAINE 2% INJ 20 MG in SODIUM CHLORIDE 0.9% 100 ML IVPB SCH ×2 (15:34→18:14)
[2017-01-12] MEDS ORDERED: NALOXONE 0.4 MG/ML 1 ML VIAL IV PRN (15:57)
--- NOTE | 2017-01-12 16:03 | XR ---
EXAMINATION TYPE: XR KUB portable DATE OF EXAM: 01/12/2017 3:55 PM CLINICAL HISTORY: NG tube placement TECHNIQUE: Single supine KUB image of the abdomen is obtained. COMPARISON: CT abdomen pelvis of the same date. FINDINGS: NG tube is inserted with its fenestrated portion beyond the gastroesophageal junction withi n the region of the gastric fundus. Distal tip is oriented laterally within the region of the gastric body. Partial visualization of gross dilatation of the large bowel remains measuring at least 8.8 cm . No gross evidence of pneumoperitoneum. Visualized lungs are overall clear but over penetrated and t echnically limited. Cardiac silhouette appears within normal limits of size. IMPRESSION: Interval insertion of an appropriately placed enteric tube and gross dilatation of the large bowel up to at least 8.8 cm compatible with the patient's known underlying mechanical large bowel obstruction .
[2017-01-12 17:54] LABS: Glucose,Whole Blood 90 mg/dL (75-99)
[2017-01-12] MEDS: 0.9% NACL WITH KCL 20 MEQ/L 1,000 ML IV SCH (18:17)
--- NOTE | 2017-01-12 18:27 | P.GSHP ---
History of Present Illness H&P Date: 01/12/17 Chief Complaint: Abdominal pain and weakness The patient is a 86-year-old female who was brought in to the emergency department by her family because of abdominal pain and weakness. She's not been eating well. They've been trying to get her to drink ensure but she doesn' t drink it. She's complained of pain in the right side of the abdomen. She had a CAT scan done at another facility several weeks ago which was reported as normal to me by Dr. Saldaña. Dr. Saldaña he has known the patient for many years. The patient is not sure when her last bowel movement was. She's not been passing any flatus today. Denies nausea or vomiting. Denies blood in the stools. The patient is a poor historian. Denies any previous colorectal surgery. She has had colonoscopy in the past however it's been at least 10 years. No family history GI malignancy. She does have a history of diverticulitis in the distant past. She does take elaquis for A. fib. She may have taken that today. - Review of Systems All systems: negative Past Medical History Past Medical History: Atrial Fibrillation, GERD/Reflux, Hyperlipidemia, Hypertension, Osteoarthritis (OA) Additional Past Medical History / Comment(s): varicose veins, arthritis, occasional back pain, diverticular disease, hiatal hernia History of Any Multi-Drug Resistant Organisms: None Reported Past Surgical History: Appendectomy, Cholecystectomy, Tonsillectomy Additional Past Surgical History / Comment(s): EGD/colonoscopy Past Anesthesia/Blood Transfusion Reactions: No Reported Reaction, Motion Sickness Past Psychological History: No Psychological Hx Reported Additional Psychological History / Comment(s): Pt resides with her spouse. Their son lives next door and 2 other children live near. She uses a cane or walker to ambulate. She drives. Smoking Status: Never smoker Past Alcohol Use History: None Reported Past Drug Use History: None Reported - Past Family History Father Family Medical History: Myocardial Infarction (IA) Additional Family Medical History / Comment(s): Father at the age of 62 yrs from a IA. Mother Family Medical History: No Reported History Additional Family Medical History / Comment(s): Mother was healthy and at the age of 89yrs. Medications and Allergies Home Medications Medication Instructions Recorded Confirmed Type Omeprazole [PriLOSEC] 20 mg PO AC-BID 03/16/14 01/12/17 History Potassium Chloride 8 meq PO DAILY 03/16/14 01/12/17 History Losartan/Hydrochlorothiazide 1 tab PO DAILY 04/01/14 01/12/17 History [Losartan-Hctz 100-25 mg Tab] Atorvastatin Calcium [Lipitor] 20 mg PO HS 05/31/16 01/12/17 History Acetaminophen Tab [Tylenol Tab] 500 mg PO Q6H PRN 01/12/17 01/12/17 History Apixaban [Eliquis] 2.5 mg PO BID 01/12/17 01/12/17 History Allergies Allergy/AdvReac Type Severity Reaction Status Date / Time No Known Allergies Allergy Verified 01/12/17 12:23 Surgical - Exam Osteopathic Statement: *. No significant issues noted on an osteopathic structural exam other than those noted in the History and Physical/Consult. Vital Signs Temp Pulse Resp BP Pulse Ox 97.4 F L 100 15 64/41 98 01/12/17 11:55 01/12/17 11:55 01/12/17 11:55 01/12/17 11:55 01/12/17 11:55 - General Age-appropriate well developed, well nourished, no distress - Eyes normal ocular movement - ENT normal mucosa - Neck trachea midline - Respiratory normal expansion, normal respiratory effort, clear to auscultation - Cardiovascular Rhythm: regular (Her rhythm sounds fairly regular to me. No ectopic beats.) Abnormal Heart Sounds: no systolic murmur - Abdomen Abdomen: tender (Mild nonspecific), bowel sounds, surgical scars (Right upper quadrant and right lower quadrant), no guarding, no rigid, no rebound, distended (Tympany to percussion) - Rectum Rectum: other (Was just performed by Dr. Saldaña. He reports very small amount of stool in the rectal ampulla) - Neurologic memory loss - Psychiatric oriented to person, oriented to place, speech is normal Results - Labs 01/12/17 12:10 01/12/17 12:10 Abnormal Lab Results - Last 24 Hours (Table) 01/12/17 01/12/17 01/12/17 Range/Units 12:10 12:10 12:10 Metamyelocytes # (Man) 0.09 H (0) k/uL PT (9.0-12.0) sec INR (<1.2) Sodium 134 L (137-145) mmol/L Potassium 3.0 L* (3.5-5.1) mmol/L Carbon Dioxide 12 L (22-30) mmol/L BUN 87 H* (7-17) mg/dL Creatinine 2.64 H (0.52-1.04) mg/dL Glucose 127 H (74-99) mg/dL Magnesium (1.6-2.3) mg/dL Ammonia (<30) umol/L Total Creatine Kinase <20 L (30-135) U/L Total Protein 6.2 L (6.3-8.2) g/dL Lipase 331 H (23-300) U/L Urine Protein (Negative) Amorphous Sediment (None) /hpf Urine Bacteria (None) /hpf Urine Mucus (None) /hpf 01/12/17 01/12/17 01/12/17 Range/Units 12:10 12:10 12:10 Metamyelocytes # (Man) (0) k/uL PT 12.3 H (9.0-12.0) sec INR 1.2 H (<1.2) Sodium (137-145) mmol/L Potassium (3.5-5.1) mmol/L Carbon Dioxide (22-30) mmol/L BUN (7-17) mg/dL Creatinine (0.52-1.04) mg/dL Glucose (74-99) mg/dL Magnesium 0.8 L* (1.6-2.3) mg/dL Ammonia 44 H (<30) umol/L Total Creatine Kinase (30-135) U/L Total Protein (6.3-8.2) g/dL Lipase (23-300) U/L Urine Protein (Negative) Amorphous Sediment (None) /hpf Urine Bacteria (None) /hpf Urine Mucus (None) /hpf 01/12/17 Range/Units 13:50 Metamyelocytes # (Man) (0) k/uL PT (9.0-12.0) sec INR (<1.2) Sodium (137-145) mmol/L Potassium (3.5-5.1) mmol/L Carbon Dioxide (22-30) mmol/L BUN (7-17) mg/dL Creatinine (0.52-1.04) mg/dL Glucose (74-99) mg/dL Magnesium (1.6-2.3) mg/dL Ammonia (<30) umol/L Total Creatine Kinase (30-135) U/L Total Protein (6.3-8.2) g/dL Lipase (23-300) U/L Urine Protein 1+ H (Negative) Amorphous Sediment Rare H (None) /hpf Urine Bacteria Rare H (None) /hpf Urine Mucus Rare H (None) /hpf Diabetes panel 01/12/17 Range/Units 12:10 Sodium 134 L (137-145) mmol/L Potassium 3.0 L* (3.5-5.1) mmol/L Chloride 103 (98-107) mmol/L Carbon Dioxide 12 L (22-30) mmol/L BUN 87 H* (7-17) mg/dL Creatinine 2.64 H (0.52-1.04) mg/dL Glucose 127 H (74-99) mg/dL Calcium 9.1 (8.4-10.2) mg/dL AST 15 (14-36) U/L ALT 26 (9-52) U/L Alkaline Phosphatase 66 (38-126) U/L Total Protein 6.2 L (6.3-8.2) g/dL Albumin 3.6 (3.5-5.0) g/dL Calcium panel 01/12/17 Range/Units 12:10 Calcium 9.1 (8.4-10.2) mg/dL Albumin 3.6 (3.5-5.0) g/dL Pituitary panel 01/12/17 Range/Units 12:10 Sodium 134 L (137-145) mmol/L Potassium 3.0 L* (3.5-5.1) mmol/L Chloride 103 (98-107) mmol/L Carbon Dioxide 12 L (22-30) mmol/L BUN 87 H* (7-17) mg/dL Creatinine 2.64 H (0.52-1.04) mg/dL Glucose 127 H (74-99) mg/dL Calcium 9.1 (8.4-10.2) mg/dL Adrenal panel 01/12/17 Range/Units 12:10 Sodium 134 L (137-145) mmol/L Potassium 3.0 L* (3.5-5.1) mmol/L Chloride 103 (98-107) mmol/L Carbon Dioxide 12 L (22-30) mmol/L BUN 87 H* (7-17) mg/dL Creatinine 2.64 H (0.52-1.04) mg/dL Glucose 127 H (74-99) mg/dL Calcium 9.1 (8.4-10.2) mg/dL Total Bilirubin 0.4 (0.2-1.3) mg/dL AST 15 (14-36) U/L ALT 26 (9-52) U/L Alkaline Phosphatase 66 (38-126) U/L Total Protein 6.2 L (6.3-8.2) g/dL Albumin 3.6 (3.5-5.0) g/dL - Imaging CT scan - abdomen: report reviewed, image reviewed Assessment and Plan (1) Large bowel obstruction Status: Acute (2) Atrial fibrillation Status: Acute (3) Hypokalemia Status: Acute (4) Hypomagnesemia syndrome Status: Acute (5) Hypotensive episode Status: Acute (6) Renal failure syndrome Status: Acute (7) Diverticular disease of colon Status: Acute (8) Dehydration Status: Acute Plan: The patient will be admitted. Hydrate. Correct electrolyte imbalances. We'll give her some enemas to clear the distal colon. Plan on sigmoidoscopy tomorrow to further evaluate the distal colon. The procedure risks and complications were discussed with the patient's children. DVT and ulcer prophylaxis. Further recommendations to follow.
[2017-01-12] MEDS ORDERED: POTASSIUM CHLORIDE 20 MEQ, LIDOCAINE 2% INJ 20 MG in SODIUM CHLORIDE 0.9% 100 ML IVPB ONE (19:00)
[2017-01-12] MEDS: MAGNESIUM SULFATE-D5W PMX 1 GM in DEXTROSE/WATER 1 100ML.BAG IVPB SCH ×2 (19:27→20:31)
[2017-01-12] MEDS: HEPARIN SODIUM,PORCINE 5,000 UNIT/ML 1 ML VIAL SQ SCH (20:35)
[2017-01-12 20:40] LABS: Glucose,Whole Blood 99 mg/dL (75-99)
[2017-01-12] MEDS ORDERED: ACETAMINOPHEN IV (For NPO) 1,000 MG in EMPTY BAG 1 BAG IVPB ONE (20:49)
--- NOTE | 2017-01-12 23:51 | XR ---
EXAMINATION TYPE: XR chest 1V portable DATE OF EXAM: 01/12/2017 COMPARISON: 05/31/2016 HISTORY: Weakness TECHNIQUE: Single frontal view of the chest is obtained. FINDINGS: There is pulmonary vascular congestion. Nasogastric tube is present. Thoracic aorta is ath eromatous. There are chest leads. There is poor inspiration. IMPRESSION: There is congestive heart failure with poor inspiration. This is new compared to last ex am.
[2017-01-13] MEDS: 0.9% NACL WITH KCL 20 MEQ/L 1,000 ML IV SCH ×4 (00:35→19:45)
[2017-01-13 02:34] LABS: Glucose,Whole Blood 100 mg/dL (75-99)
[2017-01-13 06:01] LABS: Glucose,Whole Blood 90 mg/dL (75-99)
[2017-01-13 06:52] LABS: CH 26.7; CHCM 30.4; HCT 32.6 % (34.0-46.0); HDW 2.61; Hypochromasia Moderate; MCH 27.1 pg (25.0-35.0); MCHC 30.7 g/dL (31.0-37.0); MCV 88.3 fL (80.0-100.0); Mean Platelet Volume 7.8; RBC 3.69 m/uL (3.80-5.40); RDW 15.2 % (11.5-15.5); WBC 7.4 k/uL (3.8-10.6)
[2017-01-13 07:04] LABS: Calcium 8.2 mg/dL (8.4-10.2); Magnesium 1.6 mg/dL (1.6-2.3); Potassium 3.6 mmol/L (3.5-5.1)
--- NOTE | 2017-01-13 08:08 | CONS ---
CONSULTATION CHIEF COMPLAINT: Nausea, vomiting, and abdominal pain. HISTORY OF PRESENT ILLNESS: 86-year-old female brought in the emergency room because of weakness. The patient is noted to be hypotensive and she comes to the emergency room. The patient is evaluated by ER physician. A CT scan of the abdomen shows the patient has evidence suggestive of mechanical colon obstruction. There seems to be a stricture in the sigmoid area. The patient had complained of some abdominal pains about 2 weeks ago and she had an ultrasound of the kidneys and a CT scan of the abdomen and pelvis without IV contrast done. It was reported fairly normal. There was debris in the colon with no significant dilatation. However, today's CT scan shows significant colonic distention. The patient also as mentioned is hypotensive and given IV fluids in the ER. The patient is alert with no symptoms. She in view of this is admitted to the hospital. She does complain of some mild vague discomfort, but no significant abdominal excruciating pain. The patient had some vomiting today at home, very minimal though. No fecal material. The patient states she did have a bowel movement at home. The patient is a poor historian. No reported fever, chills. PAST MEDICAL HISTORY: Significant for hypertension of longstanding. She has a history of gastroesophageal reflux and previous history of colonic diverticulosis. About 20-25 years ago, the patient had acute diverticulitis with small wall abscess. That was treated with oral antibiotics and healed. The patient has had no further evidence of acute diverticulitis. She does have some previous recurrent episodes of mild diverticulitis, she has self-treated with not eating. She has had no rectal bleeding. Colonoscopy more than 10 years ago. Past history also significant for hypertension with hypertensive cardiovascular disease. She has a history of atrial fibrillation with rate controlled. The patient is on anticoagulation. Denies any active bleeding. The patient has history of significant degenerative arthritis especially affecting the knees and hip joints. History of hyperlipidemia, on medical therapy. PAST SURGICAL HISTORY: History significant for cholecystectomy, appendectomy. No other major surgeries. Personal history never smoked. Alcohol none. ALLERGIES: None known. MEDICATIONS: Include Hyzaar 100/25 1 daily, Lipitor 20 mg daily, Eliquis 2.5 mg b.i.d., potassium chloride 1 daily, Prilosec 20 mg b.i.d. SOCIAL HISTORY: The patient and lives with spouse. The spouse if fairly elderly too. FAMILY MEDICAL HISTORY: She had significant number of siblings, some of them . One brother had Parkinson's. The patient's sister is in good health. REVIEW OF SYSTEMS: NEURO: Denies any headaches, dizziness. No double vision, blurred vision. PSYCH: No anxiety. No depression. Does have some cognitive impairment. CARDIAC: Denies chest pain, angina, palpitation. RESPIRATORY: Denies shortness of breath, cough, hemoptysis. GI: Present episode of some nausea. Episode of vomiting. Some abdominal discomfort. No diarrhea. Did have a bowel movement. No rectal bleeding. : No symptoms of dysuria or hematuria. EXTREMITIES: Chronic arthritic pain in knee joints. No edema CONSTITUTIONAL: No fever, chills. HEMATOLOGICAL: No anemia or bleeding disorder. ENDOCRINE: No history of diabetes mellitus or hypothyroidism. SKIN: Mild excoriation of the buttock area. PHYSICAL EXAMINATION: Elderly 86-year-old female, who appears to chronically ill, cachectic, in no distress. Vital signs revealed temperature 97.5, pulse 109, respirations 16, blood pressure 95/50, pulse ox of 94% on room air. HEENT: Normocephalic. Neck no JVD. Pupils are reactive. Conjunctivae are pale. Sclerae are nonicteric. Nostrils clear. The patient still has an NG tube. Oral cavity is dry. NECK: No JVD, carotid bruits, or thyromegaly. CHEST: Examination clear to auscultation and percussion. CARDIAC: Normal S1, S2 with no gallops. Irregular rhythm. Systolic murmur 2/6 left sternal border. ABDOMEN: Protuberant, relatively soft with mild tenderness with minimal guarding. No rebound tenderness. Bowel sounds active to sluggish in certain quadrants. Mild tenderness left lower quadrant. RECTAL: Examination is reveals some tenderness. The patient has minimal stool which is grayish in color. EXTREMITIES: Reveal no edema. Good pulses upper extremities and pedal pulses are adequate. NEUROLOGICAL: Awake, alert, oriented to person, place. Moves both upper and lower extremities and is cooperative. LABORATORY ASSESSMENT: CT scan of the abdomen which suggests significant colonic dilatation with mechanical obstruction. There is suggestion of possible previous sigmoid anastomosis. However, the patient has had no history of any colonic surgery. The patient's CT of the brain suggest no acute changes, just atherosclerotic changes. Chest x-ray showed diffuse interstitial changes, but chronic. CBC is normal, mild left shift with metamyelocytes seen. INR is 1.2. Sodium 134, potassium is 3.0, chloride 103, CO2 content 12, BUN 87, creatinine 2.64, anion gap 19, 127, magnesium 0.8, ammonia 44. CPK less than 20. Albumin 3.6, lipase 331. ASSESSMENT: 1. Mechanical obstruction of the sigmoid colon. 2. Acute on chronic renal failure. 3. Dehydration. 4. Cachexia. 5. History of hypertension. 6. Chronic kidney disease stage III. 7. Hypokalemia. 8. Hypomagnesemia. PLAN: The patient will be hydrated, given plenty of fluids. Repeat lytes and BUN and creatinine in the morning. Patient's condition is discussed with the patient and daughters and Dr. Woody. The patient is scheduled for an colonoscopic evaluation tomorrow. Prognosis remains guarded, especially in the setting of hypertension. Prognosis remains guarded. MMODL / IJN: [id number] /
[2017-01-13] MEDS ORDERED: SODIUM CHLORIDE 0.9% 1,000 ML IV ONE ×2 (08:23→19:03)
[2017-01-13] MEDS ORDERED: SODIUM BICARB 8.4% 50 ML SYR (1 MEQ/ML) IV ONE (09:15)
--- NOTE | 2017-01-13 09:31 | P.PN ---
Progress Note - Text The patients electrolytes have improved. Potassium is 3.6. Magnesium is 1.6. Her ammonia level is up to 56. Her pulse rate is controlled. Blood pressure is lower. We will see about sigmoidoscopy early afternoon if okay with Dr. Saldaña
[2017-01-13] MEDS: NACL IV SCH ×6 (10:31→19:47)
[2017-01-13] MEDS: SODIUM BICARB IV SCH ×8 (10:31→21:33)
[2017-01-13] MEDS: [UNRECOGNIZED DRUG - OTHER] IV SCH ×6 (10:31→19:47)
[2017-01-13] MEDS: DEXTROSE IV SCH ×6 (10:31→19:47)
[2017-01-13] MEDS: HEPARIN SODIUM,PORCINE 5,000 UNIT/ML 1 ML VIAL SQ SCH ×2 (10:34→23:00)
[2017-01-13] MEDS: PANTOPRAZOLE 40 MG/10 ML VIAL IV SCH (10:34)
[2017-01-13] MEDS: MAGNESIUM SULFATE-D5W PMX 1 GM in DEXTROSE/WATER 1 100ML.BAG IVPB SCH ×4 (10:36→22:49)
[2017-01-13 12:07] LABS: Glucose,Whole Blood 114 mg/dL (75-99)
[2017-01-13] MEDS ORDERED: LIDOCAINE 1% INJ 10MG/ML (20 ML MDV) ONE ×2 (12:29→14:27)
[2017-01-13] MEDS ORDERED: PROPOFOL 10 MG/ML 20 ML VIAL IV ONE (12:29)
[2017-01-13] MEDS ORDERED: IV FLUID CONTINUATION 1,000 ML IV ONE ×3 (12:32→14:27)
--- NOTE | 2017-01-13 12:45 | P.OP ---
Date of Procedure: 01/13/17 Preoperative Diagnosis: Probable large bowel obstruction, rule out tumor versus benign stricture Postoperative Diagnosis: Large colon obstruction likely due to benign stricture Procedure(s) Performed: Sigmoidoscopy Anesthesia: MAC Pathology: none sent (Sarah) Condition: stable Disposition: PACU Indications for Procedure: The patient presented with abdominal pain. Computed tomography scan was suggestive of a colon obstruction. Operative Findings: The patient's taken to the endoscopy suite worry pediatric colonoscope is passed per rectum to about 30 cm. At that point the colon is narrowed. I saw no obvious tumor. I was unable to pass the scope beyond this. She's taken to recovery room in satisfactory condition. She'll need to have a colonic diversion performed.
[2017-01-13] MEDS: IV FLUID CONTINUATION 1,000 ML IV ONE ×2 (14:24→18:55)
[2017-01-13] MEDS ORDERED: GLYCOPYRROLATE 0.2 MG/ML 2 ML VIAL ONE (14:27)
[2017-01-13] MEDS ORDERED: CISATRACURIUM 2 MG/ML 5 ML VIAL IV ONE (14:27)
[2017-01-13] MEDS ORDERED: ETOMIDATE 2 MG/ML 10 ML VIAL ONE (14:27)
[2017-01-13] MEDS ORDERED: PHENYLEPHRINE-0.9% NACL SYG 1 MG/10 ML SYRINGE ONE (14:27)
[2017-01-13] MEDS ORDERED: SUCCINYLCHOLINE CHLORIDE 100 MG/5 ML SYR IV ONE (14:27)
[2017-01-13] MEDS ORDERED: ROCURONIUM BROMIDE 10 MG/ML 10 ML VIAL IV ONE (14:27)
[2017-01-13] MEDS ORDERED: NEOSTIGMINE 1 MG/ML 10 ML VIAL ONE (14:27)
[2017-01-13] MEDS ORDERED: METHYLENE BLUE 10 MG/ML (10 ML VIAL) ONE (14:27)
[2017-01-13] MEDS ORDERED: ALBUMIN HUMAN 5% 500 ML VIAL IVPB ONE (14:27)
[2017-01-13] MEDS ORDERED: fentaNYL (PF) 50 MCG/ML 2 ML AMP ONE (14:27)
[2017-01-13] MEDS ORDERED: SODIUM CHLORIDE 0.9% 50 ML with ceFAZolin 2,000 MG IV ONE ×2 (14:53)
[2017-01-13] MEDS ORDERED: LACTATED RINGERS 1,000 ML IV ONE ×2 (14:53→17:08)
[2017-01-13] MEDS: ONDANSETRON 4 MG/2 ML VIAL IVP PRN (15:24)
[2017-01-13] MEDS ORDERED: HYDROmorphone 1 MG/ML 1 ML SYRINGE IVP ONE (15:24)
[2017-01-13] MEDS ORDERED: METHYLENE BLUE 10 MG/ML (10 ML VIAL) MISCELLANE ONE (16:07)
[2017-01-13] MEDS ORDERED: IOHEXOL 300 MG/ML 50 ML BOTTLE MISCELLANE ONE (16:22)
--- NOTE | 2017-01-13 16:50 | CDI ---
In responding to this query, please exercise your independent professional judgment. The [facility] Coding Staff and Clinical Documentation Specialists appreciate your assistance in clarifying documentation, maintaining compliance with coding guidelines, accurately documenting patients condition and capturing severity of illness. The fact that a question is asked does not imply that any particular answer is desired or expected. Communication forms are a method of clarifying documentation and are not made part of the Legal Health Record. Thank you in advance for your clarification. Last Revision, June 2015 [place] [address] [place] [address] Documentation Clarification Form Date: 01/13/2017 4:30:00 PM From: Jennifer Casillas RN, CCDS Admit Date: 01/12/2017 3:57:00 PM Patient Name: Janet rGove Visit Number: [id number] Discharge Date: Dr. Gibson Saldaña Hypotension is documented in the H&P, and progress notes. History/Risk Factors: GERD/Reflux, Hypertension Clinical Indicators: Per family patient had decreased oral intake, lethargy, and dizziness. over the past couple weeks. She does not want to eat. She complains of abdominal pain. She is alert, orientated x3. Patients B/P: 64/41 100 15, 75/49 92 16, 73/46 92 16 Labs: NA+ 134, K+ 3.0, BUN 87, CR 2.64, MAG+ 0.8, Ammonia 44 Treatment: Multiple IV Fluid boluses Monitor VS Telemetry monitoring In your professional opinion would you clarify if the hypotension due to? Idiopathic Hypotension Drug Induced Hypotension Neurogenic Orthostatic Hypotension Orthostatic Hypotension Postural Hypotension Chronic Hypotension Other Condition, please specify Unable to determine Please document in your progress notes in order to capture severity of illness and risk of mortality. Include clinical findings that support your diagnosis. FYI: Press F11 to launch patient chart MTDD
--- NOTE | 2017-01-13 17:20 | P.OP ---
Date of Procedure: 01/13/17 Preoperative Diagnosis: Large bowel obstruction that is post-colectomy with colostomy, left ureteral injury Postoperative Diagnosis: Same Procedure(s) Performed: Left ureteral exploration with left primary ureteral ureterostomy Anesthesia: CHRISTAL Surgeon: Samuel Valdovinos Rn Infusion #1: Haley Woody Pathology: none sent Condition: stable Disposition: PACU Indications for Procedure: The patient is an 86-year-old female who is in the hospital via the emergency room recently with a large bowel obstruction. Dr. Woody performed an abdominal exploration today because of the bowel obstruction. Colectomy was performed. There was a significant amount of adhesions. During the surgical procedure Dr. Woody was concern that she had injured the ureter due to the adhesions. SHe asked me to see the patient. Patient is asleep in her abdomen is opened. Retraction has been created by Dr. Woody with a Bookwalter retractor. Description of Procedure: The patient has been previously been anesthetized. She has had a colectomy and colostomy. Retraction has been created by Dr. Woody with the Bookwalter retractor. The retroperitoneum was noted and there is to be urine in the retroperitoneum. We explored the retroperitoneum near the internal iliac vessels. We quickly identified the distal ureter. It appears viable and healthy. I passed an 035 wire through the ureter into the bladder easily. Over this is passed a 6 x 26 double-J catheter. With Some difficulty I eventually identify the proximal ureter. I passed a 6-German open-ended catheter and perform a retrograde pyelogram under fluoroscopy to make sure this indeed was the ureter and it is. I make sure there is adequate length to perform a primary ureteral ureterostomy and there is. I spatulated the ureter proximally and distally. I then passed the proximal portion of the double-J catheter up into the renal pelvis. Over the new double-J catheter I then perform a ureteral ureterostomy with 2 running 5-0 Vicryl. There is no tension on the anastomosis. The ureter lies nicely in the retroperitoneum. The drain will be placed. Dr. Woody will close the abdomen. Impression: Left ureteral injury identified and repaired with primary ureteral ureterostomy. Recommendations: The double-J catheter will need to remain in place for several weeks. I will follow this patient.
[2017-01-13] MEDS ORDERED: D5-0.45% NACL WITH KCL 20MEQ/L 1,000 ML IV SCH (18:15)
--- NOTE | 2017-01-13 18:15 | P.OP ---
Date of Procedure: 01/13/17 Preoperative Diagnosis: Sigmoid colon obstruction Postoperative Diagnosis: Sigmoid colon obstruction, left ureteral injury Procedure(s) Performed: laparotomy with hartmans procedure, placement of SURYA drain. Anesthesia: SKYA Surgeon: Haley Woody Third Steel Pourer #1: Samuel Valdovinos Estimated Blood Loss (ml): 750 Pathology: other (sigmoid colon) Condition: stable Disposition: PACU Indications for Procedure: The patient presented with a sigmoid obstruction. Attempt at endoscopic decompression was not successful. Operative Findings: A low sigmoid obstruction, likely due to a cancer. Involvement of the right fallopian tube. Incidental ureteral injury Description of Procedure: The patient's taken the operative suite where she is prepped and draped in the usual sterile manner under general endotracheal anesthetic. The abdomen is entered through a lower midline incision. Small bleeding points were controlled with electrocautery. She has a markedly distended colon. The small bowel was also very distended. NG tube position in the stomach was verified by palpation. The enteric contents was milked back into the stomach. Anesthesia was able to aspirate about 2 L of fluid out the nasogastric tube. A culture retractor was placed. The small bowel was packed out of the way. The sigmoid colon was mobilized laterally along the white line of Toldt. This was carried down to the pelvis. The sigmoid colon was noted to be very adherent to the uterus anteriorly. The attachments were taken down with cautery. The bowel was then rotated medially. The fallopian tube was densely adherent. It was divided with LigaSure. An opening was then made in the colonic mesentery distal to the tumor. A TX stapler was placed and fired. The bowel was occluded proximally using a Lynette. The bowel was transected. The mesentery was taken down with LigaSure. The sigmoidal vessels were clamped cut and tied with 0 Vicryl suture. A site was chosen proximally for resection. A PAWAN stapler was placed and fired. The specimen was passed off. The colon was then mobilized medially. A site was chosen for colostomy formation. A disc of skin and subcutaneous tissue was removed. The fascia was divided with cautery. The muscle was split. The posterior fascia was incised with cautery. The bowel was brought up. The pelvis was reexamined. The right ureter was clearly seen. Visualizing for the left ureter did not find a potential transected ureter. Thought it was able to see proximal and distal ends. Dr. Valdovinos was contacted and came into the procedure. We were able to identify 2 ends of the ureter. A retrograde exam was carried out confirming the proximal end. He then performed a ureteroureterostomy over a stent. See his dictation. The pelvis was then irrigated and aspirated. A stab incision was made and a drain was placed this and along the left ureter. Then allowed to lay in gentle loops. There was no significant omentum to cover this with. The fascia and peritoneum were closed with 1 PDS. The skin was Loosely approximated with al. Linda of HDB Newco were placed. This was covered with a sterile towel. Ostomy was then matured. The fascia was tacked to the bowel using 3-0 Vicryl. The staple line was then cut. Full-thickness bites of the bowel were taken along with a deep dermal bite of the skin and a deep serosal right. These were then tied down either everting the ostomy. The skin was then tacked to the edge of the bowel using 3-0 chromic. An ostomy appliance was applied. She tolerated the procedure without difficulty and was taken to ICU on a ventilator. Prognosis is guarded.
[2017-01-13] MEDS ORDERED: metroNIDAZOLE-NS PMX 500 MG in SALINE 1 100ML.BAG IVPB SCH (18:30)
[2017-01-13] MEDS ORDERED: IPRATROPIUM-ALBUTEROL 3 ML NEB INHALATION PRN (18:58)
[2017-01-13] MEDS ORDERED: PIPERACILLIN-TAZOBACTAM 3.375 GM in DEXTROSE/WATER 1 50ML.BAG IVPB SCH (19:00)
[2017-01-13 19:11] LABS: ABG Base Excess -10.5 mmol/L; ABG HCO3 16 mmol/L (21-25); ABG Oxygen Saturation 99.8 % (94-97); ABG PCO2 38 mmHg (35-45); ABG PH 7.23 (7.35-7.45); ABG PO2 275 mmHg (83-108); ABG TCO2 17 mmol/L (19-24)
[2017-01-13] MEDS: IPRATROPIUM-ALBUTEROL 3 ML NEB INHALATION SCH ×2 (19:15→23:20)
[2017-01-13 19:17] LABS: Glucose,Whole Blood 157 mg/dL (75-99)
[2017-01-13] MEDS: NOREPINEPHRIN 16 MG-0.9%NS PMX 16 MG/250 ML ML IV SCH ×2 (19:17→21:42)
--- NOTE | 2017-01-13 19:17 | P.CNPUL ---
History of Present Illness Consult date: 01/13/17 Requesting physician: Haley Woody Reason for consult: other (Abdominal sepsis, patient is in the ICU on mechanical ventilation status post laparotomy with Joanna's procedure) Chief complaint: Abdominal pain and weakness History of present illness: This is an 86-year-old female presented to the ER with 1 day history of abdominal pain. Patient has not been eating well, pain was mostly on the right side of the abdomen, computed tomography scan of the abdomen in another facility several weeks ago was reported as normal. Patient is primarily a patient of Dr. Saldaña, she had no nausea no vomiting, no blood in the stools on presentation, however the patient was poor historian according to the surgeon on the case. Her last colonoscopy was supposedly over 10 years ago. No family history of GI malignancy. She does have history of diverticulitis in the distant past. CT of the abdomen and pelvis was done on 01/12/2017, and was relatively unremarkable. Patient underwent sigmoidoscopy, however there was evidence of sigmoid obstruction and the surgeon could not pass the scope beyond 30 cm. Then the patient underwent exploratory laparotomy, and she was found to have bowel obstruction, she underwent colectomy with colostomy however she sustained left ureteral injury and this was addressed by Dr. Fonseca/urologist on the case. Patient was admitted to the intensive care unit, on mechanical ventilation, chest x-ray is now pending, ABG is pending, antibiotics were addressed, and infectious disease consultation was initiated. Patient is hemodynamically stable, sedated. In no distress at this point. Her primary left ureteral injury was identified and prepared with ureteral ureterostomy. Review of Systems Cannot be obtained, patient is sedated, on mechanical ventilation, and no family members available. Past Medical History Past Medical History: Atrial Fibrillation, GERD/Reflux, Hyperlipidemia, Hypertension, Osteoarthritis (OA) Additional Past Medical History / Comment(s): varicose veins, arthritis, occasional back pain, diverticular disease, hiatal hernia History of Any Multi-Drug Resistant Organisms: None Reported Past Surgical History: Appendectomy, Cholecystectomy, Tonsillectomy Additional Past Surgical History / Comment(s): EGD/colonoscopy Past Anesthesia/Blood Transfusion Reactions: No Reported Reaction, Motion Sickness Past Psychological History: No Psychological Hx Reported Additional Psychological History / Comment(s): Pt resides with her spouse. Their son lives next door and 2 other children live near. She uses a cane or walker to ambulate. She drives. Smoking Status: Never smoker Past Alcohol Use History: None Reported Past Drug Use History: None Reported - Past Family History Father Family Medical History: Myocardial Infarction ([place]) Additional Family Medical History / Comment(s): Father at the age of 62 yrs from a [place]. Mother Family Medical History: No Reported History Additional Family Medical History / Comment(s): Mother was healthy and at the age of 89yrs. Medications and Allergies Home Medications Medication Instructions Recorded Confirmed Type Omeprazole [PriLOSEC] 20 mg PO AC-BID 03/16/14 01/12/17 History Potassium Chloride 8 meq PO DAILY 03/16/14 01/12/17 History Losartan/Hydrochlorothiazide 1 tab PO DAILY 04/01/14 01/12/17 History [Losartan-Hctz 100-25 mg Tab] Atorvastatin Calcium [Lipitor] 20 mg PO HS 05/31/16 01/12/17 History Acetaminophen Tab [Tylenol Tab] 500 mg PO Q6H PRN 01/12/17 01/12/17 History Apixaban [Eliquis] 2.5 mg PO BID 01/12/17 01/12/17 History Allergies Allergy/AdvReac Type Severity Reaction Status Date / Time No Known Allergies Allergy Verified 01/12/17 12:23 Physical Exam Vitals: Vital Signs Temp Pulse Resp BP BP BP BP 01/13/17 14:19 98.0 F 94 18 91/59 91/59 01/13/17 13:45 93 81/56 01/13/17 13:30 88/48 01/13/17 13:15 91 20 85/49 01/13/17 11:42 97.5 F L 86 20 86/49 01/13/17 09:13 90/51 01/13/17 09:07 83/48 01/13/17 09:06 01/13/17 08:00 97.7 F 89 20 75/36 01/13/17 06:15 93 82/47 01/13/17 04:00 89 18 80/45 01/13/17 02:00 97.7 F 87 18 73/52 01/13/17 00:30 87 18 75/48 01/13/17 00:00 88 18 72/44 01/12/17 21:35 86 18 87/54 01/12/17 20:45 90 18 78/49 01/12/17 20:00 97 F L 94 18 81/48 Pulse Ox 01/13/17 14:19 99 01/13/17 13:45 96 01/13/17 13:30 97 01/13/17 13:15 96 01/13/17 11:42 96 01/13/17 09:13 01/13/17 09:07 01/13/17 09:06 96 01/13/17 08:00 97 01/13/17 06:15 01/13/17 04:00 95 01/13/17 02:00 95 01/13/17 00:30 96 01/13/17 00:00 96 01/12/17 21:35 97 01/12/17 20:45 97 01/12/17 20:00 98 Intake and Output 01/13/17 01/13/17 01/13/17 06:59 14:59 22:59 Intake Total 2850 4050 1620 Output Total 825 900 Balance 2024 3150 1620 Intake: IV 4050 1000 Dextrose 5%-0.2% NaCl 1, 800 000 ml @ 200 mls/hr IV . Q5H35M [facility]Y with Sodium Bicarb (1 Meq/ml) 100 ml with Potassium Chloride 30 meq Rx#:[id number] Magnesium Sulfate-D5w Pmx 200 1 gm In Dextrose/Water 1 100ml.bag @ 100 mls/hr IVPB Q1H [facility] Rx#: [id number] Sodium Chloride 0.9% 1, 1000 000 ml @ 500 mls/hr IV . Q2H ONE Rx#:[id number] Intake, IV Titration 2850 Amount 0.9% NaCl with KCl 20 Meq 1350 /l 1,000 ml @ 150 mls/hr IV .Q6H40M [facility]Y Rx#: [id number] ACETAMINOPHEN IV (For NPO 100 ) 1,000 mg In Empty Bag 1 bag @ 400 mls/hr IVPB ONCE ONE Rx#:[id number] Magnesium Sulfate-D5w Pmx 100 1 gm In Dextrose/Water 1 100ml.bag @ 100 mls/hr IVPB ONCE ONE Rx#: [id number] Magnesium Sulfate-D5w Pmx 100 1 gm In Dextrose/Water 1 100ml.bag @ 100 mls/hr IVPB Q1H [facility] Rx#: [id number] Potassium Chloride 20 meq 100 Lidocaine 2% Inj 20 mg In Sodium Chloride 0.9% 100 ml @ 55.5 mls/hr IVPB ONCE ONE Rx#:[id number] Potassium Chloride 20 meq 100 Lidocaine 2% Inj 20 mg In Sodium Chloride 0.9% 100 ml @ 55.5 mls/hr IVPB Q2HR [facility] Rx#:[id number] Sodium Chloride 0.9% 1, 1000 000 ml @ 999 mls/hr IV . Q1H1M ONE Rx#:[id number] Blood Product 620 Rc As-1 Unit 310 [id number] Rc As-3 Unit 310 [id number] Output: Gastric Drainage 400 Urine 425 200 Estimated Blood Loss 700 Other: Voiding Method Indwelling Catheter Indwelling Catheter Weight 69 kg 69 kg Patient Weight 01/14/17 06:59 Weight 69 kg Physical Exam: Revealed an 86-year-old female on mechanical ventilation, endotracheal tube is intact, orogastric tube is intact. HEENT:[Neck is supple.] [No neck masses.] [No thyromegaly.] [No JVD.] Chest: [Minimal fine crackles at the bases, no rhonchi, no wheezes. Cardiac Exam: [Irregular irregular rhythm Normal S1 and S2, no S3 gallop, no murmur.] Abdomen: [Postsurgical, soft, incision looks clean, patient has a binder in place, left lower quadrant colostomy bag is noted. Extremities: [No clubbing, no edema, no cyanosis.] Neurological Exam: Cannot be assessed. Skin: No rashes, no ulcerations. Psychiatric: Cannot be addressed. Mus[place] skeletal: Cannot be addressed patient is sedated. Results - Laboratory Findings CBC and BMP: 01/13/17 06:28 01/13/17 06:28 PT/INR, D-dimer PT 12.3 sec (9.0-12.0) H 01/12/17 12:10 INR 1.2 (<1.2) H 01/12/17 12:10 Abnormal lab findings: Abnormal Labs 01/12/17 01/12/17 01/12/17 12:10 12:10 12:10 RBC Hgb Hct MCHC Metamyelocytes # (Man) 0.09 H PT INR Sodium 134 L Potassium 3.0 L* Chloride Carbon Dioxide 12 L BUN 87 H* Creatinine 2.64 H Glucose 127 H POC Glucose (mg/dL) Calcium Magnesium Ammonia Total Creatine Kinase <20 L Total Protein 6.2 L Lipase 331 H Urine Protein Amorphous Sediment Urine Bacteria Urine Mucus Crossmatch 01/12/17 01/12/17 01/12/17 12:10 12:10 12:10 RBC Hgb Hct MCHC Metamyelocytes # (Man) PT 12.3 H INR 1.2 H Sodium Potassium Chloride Carbon Dioxide BUN Creatinine Glucose POC Glucose (mg/dL) Calcium Magnesium 0.8 L* Ammonia 44 H Total Creatine Kinase Total Protein Lipase Urine Protein Amorphous Sediment Urine Bacteria Urine Mucus Crossmatch 01/12/17 01/12/17 01/13/17 12:10 13:50 02:33 RBC Hgb Hct MCHC Metamyelocytes # (Man) PT INR Sodium Potassium Chloride Carbon Dioxide BUN Creatinine Glucose POC Glucose (mg/dL) 100 H Calcium Magnesium Ammonia Total Creatine Kinase Total Protein Lipase Urine Protein 1+ H Amorphous Sediment Rare H Urine Bacteria Rare H Urine Mucus Rare H Crossmatch See Detail 01/13/17 01/13/17 01/13/17 06:28 06:28 06:28 RBC 3.69 L Hgb 10.0 L D Hct 32.6 L MCHC 30.7 L Metamyelocytes # (Man) PT INR Sodium Potassium Chloride 117 H Carbon Dioxide 10 L* BUN 65 H Creatinine 1.71 H Glucose POC Glucose (mg/dL) Calcium 8.2 L Magnesium Ammonia 56 H Total Creatine Kinase Total Protein Lipase Urine Protein Amorphous Sediment Urine Bacteria Urine Mucus Crossmatch 01/13/17 11:54 RBC Hgb Hct MCHC Metamyelocytes # (Man) PT INR Sodium Potassium Chloride Carbon Dioxide BUN Creatinine Glucose POC Glucose (mg/dL) 114 H Calcium Magnesium Ammonia Total Creatine Kinase Total Protein Lipase Urine Protein Amorphous Sediment Urine Bacteria Urine Mucus Crossmatch Assessment and Plan Plan: Impression: 1 large bowel obstruction, status post colectomy with colostomy and left ureteral injury requiring repair postoperative day #0. 2 postoperative respiratory failure, requiring intubation and mechanical ventilation expected considering the surgery involved. 3 history of chronic atrial fibrillation 4 history of benign essential hypertension 5 history of osteoarthritis 6 acute abdominal sepsis is suspected. Recommendation: Continue present supportive care measures including mechanical ventilation, antibiotics, bronchodilators, GI and DVT prophylaxis, we will address nutritional support and possibly TPN depending on the overall condition in the next 24 hours. Ventilator settings will be adjusted based on the ABG which is pending and chest x-ray is pending at the time of my dictation. We'll continue to follow. Infectious disease consultation was initiated, in the meantime started the patient on Zosyn and Levaquin and Flagyl. Time with Patient: Greater than 30
--- NOTE | 2017-01-13 19:18 | XR ---
EXAMINATION TYPE: XR chest 1V confirm line [facility] DATE OF EXAM: 01/13/2017 COMPARISON: 01/12/2017 HISTORY: Check line placement TECHNIQUE: Single frontal view of the chest is obtained. FINDINGS: Endotracheal tube is somewhat low in 1 cm from the jack. There is a right side jugular c atheter with the tip over the upper right atrium. There is no pneumothorax. There is no heart failure . Thoracic aorta is atheromatous. There is nasogastric tube noted. IMPRESSION: Endotracheal tube is low and could be pulled back 2 cm. No heart failure. There is impro sid inspiration compared to last exam.
[2017-01-13] MEDS ORDERED: ARTIFICIAL TEARS-HYPROMELLOSE DROPS 15 ML BTL BOTH EYES PRN (19:39)
[2017-01-13] MEDS ORDERED: NALOXONE 0.4 MG/ML 1 ML VIAL IV PRN (19:39)
[2017-01-13] MEDS ORDERED: SODIUM BICARB 8.4% 50 ML VIAL (1 MEQ/ML) IV ONE (19:45)
[2017-01-13 20:44] LABS: Calcium 7.5 mg/dL (8.4-10.2); Magnesium 1.6 mg/dL (1.6-2.3); Phosphorous 3.4 mg/dL (2.5-4.5); Total Protein 4.1 g/dL (6.3-8.2)
[2017-01-13 20:59] LABS: Potassium 2.9 mmol/L (3.5-5.1)
[2017-01-13 21:00] LABS: CH 28.6; CHCM 32.4; HCT 34.9 % (34.0-46.0); HDW 3.12; HGB 10.9 gm/dL (11.4-16.0); Immature Gran Flag Marked; MCH 27.6 pg (25.0-35.0); MCHC 31.2 g/dL (31.0-37.0); MCV 88.6 fL (80.0-100.0); Mean Platelet Volume 7.6; RBC 3.95 m/uL (3.80-5.40); RDW 15.7 % (11.5-15.5); WBC 13.8 k/uL (3.8-10.6)
[2017-01-13] MEDS: PROPOFOL 1,000 MG/100 ML VIAL IV SCH (21:00)
[2017-01-13] MEDS ORDERED: ceFAZolin 1,000 MG in DEXTROSE/WATER 1 50ML.BAG IVPB SCH (21:00)
[2017-01-13 21:31] LABS: Add Differential Manual Differential
[2017-01-13 21:32] LABS: Band Neutrophils % 15 %; Nucleated Red Blood Cells 0 /100 WBC (0-0); Total Cells Counted 100
[2017-01-13] MEDS: LEVOFLOXACIN 500MG-D5W PMX 500 MG in DEXTROSE/WATER 1 100ML.BAG IVPB SCH (21:32)
[2017-01-13 21:33] LABS: Manual Review Performed
[2017-01-13] MEDS: DEXTROSE 5% IV SCH ×2 (21:33)
[2017-01-13] MEDS: WATER IV SCH ×2 (21:33)
[2017-01-13] MEDS: metroNIDAZOLE-NS PMX 500 MG in SALINE 1 100ML.BAG IVPB SCH (21:33)
[2017-01-13] MEDS: POTASSIUM CHLORIDE 20 MEQ in WATER FOR INJECTION 1 100ML.BAG IVPB SCH (21:46)
[2017-01-13] MEDS: CHLORHEXIDINE GLUCONATE 15 ML CUP MUCOUS MEM SCH (22:32)
[2017-01-14] MEDS: PIPERACILLIN-TAZOBACTAM 3.375 GM in DEXTROSE/WATER 1 50ML.BAG IVPB SCH ×2 (00:10→09:13)
[2017-01-14 00:50] LABS: ABG PCO2 36 mmHg (35-45); ABG PO2 170 mmHg (83-108)
[2017-01-14 00:51] LABS: ABG Base Excess -8.1 mmol/L; ABG HCO3 17 mmol/L (21-25); ABG TCO2 18 mmol/L (19-24)
[2017-01-14] MEDS: POTASSIUM CHLORIDE 20 MEQ in WATER FOR INJECTION 1 100ML.BAG IVPB SCH ×3 (01:30→21:02)
[2017-01-14] MEDS ORDERED: INSULIN LISPRO (humaLOG) 300 UNIT/3 ML VIAL SQ SCH (01:45)
[2017-01-14 01:46] LABS: Glucose,Whole Blood 198 mg/dL (75-99)
[2017-01-14] MEDS: HYDROmorphone 1 MG/ML 1 ML SYRINGE IVP PRN ×3 (01:48→19:03)
--- NOTE | 2017-01-14 02:20 | PN ---
PROGRESS NOTE ATTENDING PHYSICIAN: Dr. Woody. CONSULTING PHYSICIAN: Dr. Kamran Saldaña. CHIEF COMPLAINT: Reevaluation. HISTORY OF PRESENT ILLNESS: This lady was admitted to the hospital yesterday with abdominal pain. The patient is noted to have evidence suggestive of mechanical obstruction. The patient during the night was still hypotensive, however, no symptoms. The patient's perfusion appeared to be adequate. She has good urine output . In no distress and she was not tachycardic. In view of this, fluids were continued. The patient was evaluated in the morning again. She did not pass any gas or have a bowel movement. Abdomen was fairly soft. The bowel sounds were absent. The patient otherwise had clear lung hicks and in no distress. Explained to the patient the procedure plan was a colonoscopy. Depending on the findings of the colonoscopy, further she may require surgical intervention versus conservative treatment. The patient understood this fairly well. REVIEW OF SYSTEMS: Neuro: Denies any headaches, dizziness. Psych: No anxiety. Cardiac: No chest pain. Respiratory: Denies shortness of breath, cough. GI denies any nausea, vomiting. Has an NG tube. Cooperative with maintaining the tube in place. No bowel movements. No flatus. : No symptoms of dysuria or hematuria. Has IDC causing urinary retention. Extremities chronic pain in the knees. Constitutional: No fever or chills. PHYSICAL EXAMINATION: Temperature 97.7, pulse 89, respirations 20, blood pressure 95/36, and subsequently up to 85 and 90 range. HEENT: Normocephalic. NECK: Supple. No JVD. Oral cavity dry. Conjunctivae, anicteric sclerae and nonicteric. CHEST: Clear to auscultation percussion. Cardiac distant HEART: Sounds S1, S2 with no gallops. Irregularly irregular rhythm. Systolic murmur 2/6 left sternal border. Abdomen distended. Mild diffuse tenderness with no rebound tenderness. Bowel sounds absent. Extremities reveal no edema. No tenderness. NEUROLOGICALLY: Awake, alert, oriented to place, time. Moves both upper extremities fairly well. LABORATORY DATA: Assessment was electrolytes which revealed CBC with a hemoglobin of 10.0, white count 7.4, platelets 258. Sodium 140, potassium 3.6, chloride 117, CO2 content 18 with anion gap of 13, BUN down to 65, creatinine improved to 1.71. Glucose 92. Ammonia 56. ASSESSMENT: 1. Acute bowel obstruction. 2. Hypokalemia, resolved. 3. Hypomagnesemia resolved. 4. Non-anion gap metabolic acidosis. 5. Acute on chronic renal failure, improving. 6. Anemia. 7. Chronic atrial fibrillation. PLAN: The patient is scheduled for a colonoscopy. Did have a discussion with Dr. Woody this morning. Patient's blood pressure was on the lower side, we decided to give patient fluids because she is not in any distress, if she stays adequately perfused with adequate urine output and mentally alert. The patient is not icteric. The patient also will undergo a surgical procedure if colonoscopy reveals indications. The patient was again seen in the ICU post surgery this evening. She is on the ventilator on 100% FiO2 with 5 of PEEP. Maintaining adequate oxygenation. Blood pressures in the 113 range. She has low dose Levophed. The patient's lung hicks clear. Has an NG tube. Post abdominal surgery colostomy. Extremities no edema. Neurological is sedated. ASSESSMENT: 1. Acute bowel obstruction, status post surgery. Details of surgical procedure available possibility of malignancy not ruled out. 2. Ureteric anastomosis. 3. Non-anion gap acidosis. 4. Acute on chronic renal failure, improving. 5. Hypokalemia. PLAN: Continue present medical regimen. Patient's condition stable. Prognosis remains guarded. The patient's status discussed with the son and [id number]. Continue present medical management. Prognosis is guarded. The patient managed per Dr. Valle in ICU. MMOMARL / ERNESTINAN: [id number] /
[2017-01-14 03:14] LABS: Glucose,Whole Blood 176 mg/dL (75-99)
[2017-01-14] MEDS: IPRATROPIUM-ALBUTEROL 3 ML NEB INHALATION SCH ×6 (03:23→23:13)
[2017-01-14] MEDS: PROPOFOL 1,000 MG/100 ML VIAL IV SCH ×2 (03:42→20:16)
[2017-01-14 05:17] LABS: Anisocytosis Slight; Basophils # (A) 0.1 k/uL (0-0.2); Basophils % (A) 0 %; CH 28.7; CHCM 32.8; Eosinophils % (A) 0 %; HCT 37.2 % (34.0-46.0); HDW 3.48; HGB 11.7 gm/dL (11.4-16.0); Immature Gran Flag Slight; Luc # (Auto) 0.17; Luc % (Auto) 1; Lymphocytes # (A) 0.7 k/uL (1.0-4.8); Lymphocytes % (A) 3 %; MCH 27.7 pg (25.0-35.0); MCHC 31.5 g/dL (31.0-37.0); Mean Platelet Volume 7.4; Monocytes # (A) 0.6 k/uL (0-1.0); Monocytes % (A) 3 %; Neutrophils # (A) 20.2 k/uL (1.3-7.7); Neutrophils % (A) 93 %; Poikilocytosis Slight; RBC 4.22 m/uL (3.80-5.40); WBC 21.8 k/uL (3.8-10.6); WBC (Perox) 23.75
[2017-01-14 05:28] LABS: Calcium 7.9 mg/dL (8.4-10.2); Phosphorous 2.6 mg/dL (2.5-4.5); Potassium 3.3 mmol/L (3.5-5.1); Total Bilirubin 0.9 mg/dL (0.2-1.3); Total Protein 4.2 g/dL (6.3-8.2)
[2017-01-14] MEDS ORDERED: POTASSIUM CHLORIDE 20 MEQ in WATER FOR INJECTION 1 100ML.BAG IVPB ONE ×2 (05:42→20:50)
[2017-01-14] MEDS: INSULIN LISPRO (humaLOG) 300 UNIT/3 ML VIAL SQ SCH ×3 (06:25→18:17)
[2017-01-14 07:36] LABS: ABG PCO2 28 mmHg (35-45); ABG PH 7.38 (7.35-7.45)
[2017-01-14 07:37] LABS: ABG Base Excess -7.9 mmol/L; ABG HCO3 16 mmol/L (21-25); ABG Oxygen Saturation 99.9 % (94-97); ABG PO2 282 mmHg (83-108); ABG TCO2 17 mmol/L (19-24)
--- NOTE | 2017-01-14 08:32 | XR ---
EXAMINATION TYPE: XR chest 1V portable DATE OF EXAM: 01/14/2017 HISTORY: Tube placement. REFERENCE: Previous study dated 01/13/2017. FINDINGS: The patient is ET tube and NG tube and right internal jugular catheter remain in place, unc hanged in appearance. The patient is ET tube has been withdrawn and is now approximately 2.6 cm above the jack. There is bibasilar basilar airspace disease, likely representing atelectasis. The heart is upper limi ts of normal in size. There is a small left effusion. IMPRESSION: 1. BORDERLINE CARDIOMEGALY. 2. LEFT BASILAR AIRSPACE DISEASE. 3. SMALL, LEFT-SIDED EFFUSION.
[2017-01-14] MEDS: CHLORHEXIDINE GLUCONATE 15 ML CUP MUCOUS MEM SCH ×2 (09:12→21:23)
[2017-01-14] MEDS: metroNIDAZOLE-NS PMX 500 MG in SALINE 1 100ML.BAG IVPB SCH ×3 (09:12→21:13)
[2017-01-14] MEDS: HEPARIN SODIUM,PORCINE 5,000 UNIT/ML 1 ML VIAL SQ SCH ×3 (09:12→18:18)
[2017-01-14] MEDS: PANTOPRAZOLE 40 MG/10 ML VIAL IV SCH (09:13)
--- NOTE | 2017-01-14 09:16 | P.PN ---
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 The repair went uneventfully over a double-J catheter. She is in the intensive care unit. She's done relatively well overnight. From urologic standpoint nothing further needs to be done at this point in time. The stent will remain in 4-6 weeks. Objective - Vital Signs Vital signs: Vital Signs Temp 99.0 F 01/14/17 08:00 Pulse 138 H 01/14/17 09:00 Resp 24 01/14/17 07:00 BP 92/59 01/14/17 06:00 Pulse Ox 99 01/14/17 09:00 Intake & Output 01/13/17 01/14/17 01/14/17 18:59 06:59 18:59 Intake Total 5670 4489.606 490.640 Output Total 900 1775 210 Balance 4770 2714.606 280.640 Weight 69 kg 79.2 kg Intake: IV 5050 3343 269 ART line 43 9 Dextrose 5% in Water 850 500 150 ml @ 50 mls/hr IV .Q20H [facility]Y with Sodium Bicarb (1 Meq/ml) 150 ml Rx#: [id number] Dextrose 5%-0.2% NaCl 1, 800 000 ml @ 200 mls/hr IV . Q5H35M REMY with Sodium Bicarb (1 Meq/ml) 100 ml with Potassium Chloride 30 meq Rx#:[id number] Levofloxacin 500Mg-D5w 100 Pmx 500 mg In Dextrose/ Water 1 100ml.bag @ 100 mls/hr IVPB Q24H [facility]Y Rx#: [id number] Magnesium Sulfate-D5w Pmx 200 200 1 gm In Dextrose/Water 1 100ml.bag @ 100 mls/hr IVPB Q1H [facility]Y Rx#: [id number] Potassium Chloride 20 meq 450 50 In Water For Injection 1 100ml.bag @ 50 mls/hr IVPB Q2H [facility]Y Rx#: [id number] Sodium Chloride 0.9% 1, 1000 1500 000 ml @ 500 mls/hr IV . Q2H ONE Rx#:[id number] ceFAZolin 1,000 mg In 100 Dextrose/Water 1 50ml.bag @ 100 mls/hr IVPB Q12HR REMY Rx#:[id number] kvo 200 60 metroNIDAZOLE-NS PMX 500 200 mg In Saline 1 100ml.bag @ 100 mls/hr IVPB Q8H [facility] Rx#:[id number] zosyn 50 Intake, IV Titration 1146.606 221.640 Amount Norepinephrin 16 mg-0.9% 70.017 148.5 Ns Pmx 16 mg In 250 ml @ Titrate IV .Q0M [facility] Rx#: [id number] Propofol 1,000 mg In 100 76.589 73.140 ml @ Titrate IV .Q0M [facility] Rx#:[id number] Sodium Chloride 0.9% 1, 1000 000 ml @ 999 mls/hr IV . Q1H1M ONE Rx#:[id number] Blood Product 620 Rc As-1 Unit 310 [id number] Rc As-3 Unit 310 [id number] Output: Drainage 610 NG tube 450 Right Lower Abdomen 160 Urine 200 665 210 Stool 500 Estimated Blood Loss 700 Other: Voiding Method Indwelling Catheter Indwelling Catheter ABP, PAP, CO, CI - Last Documented Arterial Blood Pressure 120/63 - Labs CBC & Chem 7: 01/14/17 05:00 01/14/17 05:00 Labs: Abnormal Lab Results - Last 24 Hours (Table) 01/12/17 01/13/17 01/13/17 Range/Units 12:10 11:54 19:01 WBC (3.8-10.6) k/uL Hgb (11.4-16.0) gm/dL RDW (11.5-15.5) % Neutrophils # (1.3-7.7) k/uL Neutrophils # (Manual) (1.3-7.7) k/uL Lymphocytes # (1.0-4.8) k/uL Lymphocytes # (Manual) (1.0-4.8) k/uL ABG pH 7.23 L (7.35-7.45) ABG pCO2 (35-45) mmHg ABG pO2 275 H (83-108) mmHg ABG HCO3 16 L (21-25) mmol/L ABG Total CO2 17 L (19-24) mmol/L ABG O2 Saturation 99.8 H (94-97) % Potassium (3.5-5.1) mmol/L Chloride (98-107) mmol/L Carbon Dioxide (22-30) mmol/L BUN (7-17) mg/dL Creatinine (0.52-1.04) mg/dL Glucose (74-99) mg/dL POC Glucose (mg/dL) 114 H (75-99) mg/dL Calcium (8.4-10.2) mg/dL Total Protein (6.3-8.2) g/dL Albumin (3.5-5.0) g/dL Crossmatch See Detail 01/13/17 01/13/17 01/13/17 Range/Units 19:15 20:30 20:30 WBC 13.8 H (3.8-10.6) k/uL Hgb 10.9 L (11.4-16.0) gm/dL RDW 15.7 H (11.5-15.5) % Neutrophils # (1.3-7.7) k/uL Neutrophils # (Manual) 13.50 H (1.3-7.7) k/uL Lymphocytes # (1.0-4.8) k/uL Lymphocytes # (Manual) 0.14 L (1.0-4.8) k/uL ABG pH (7.35-7.45) ABG pCO2 (35-45) mmHg ABG pO2 (83-108) mmHg ABG HCO3 (21-25) mmol/L ABG Total CO2 (19-24) mmol/L ABG O2 Saturation (94-97) % Potassium 2.9 L* (3.5-5.1) mmol/L Chloride 113 H (98-107) mmol/L Carbon Dioxide 18 L (22-30) mmol/L BUN 51 H (7-17) mg/dL Creatinine 1.44 H (0.52-1.04) mg/dL Glucose 190 H (74-99) mg/dL POC Glucose (mg/dL) 157 H (75-99) mg/dL Calcium 7.5 L (8.4-10.2) mg/dL Total Protein 4.1 L (6.3-8.2) g/dL Albumin 2.3 L (3.5-5.0) g/dL Crossmatch 01/13/17 01/14/17 01/14/17 Range/Units 23:14 01:42 03:11 WBC (3.8-10.6) k/uL Hgb (11.4-16.0) gm/dL RDW (11.5-15.5) % Neutrophils # (1.3-7.7) k/uL Neutrophils # (Manual) (1.3-7.7) k/uL Lymphocytes # (1.0-4.8) k/uL Lymphocytes # (Manual) (1.0-4.8) k/uL ABG pH 7.30 L (7.35-7.45) ABG pCO2 (35-45) mmHg ABG pO2 170 H (83-108) mmHg ABG HCO3 17 L (21-25) mmol/L ABG Total CO2 18 L (19-24) mmol/L ABG O2 Saturation 99.0 H (94-97) % Potassium (3.5-5.1) mmol/L Chloride (98-107) mmol/L Carbon Dioxide (22-30) mmol/L BUN (7-17) mg/dL Creatinine (0.52-1.04) mg/dL Glucose (74-99) mg/dL POC Glucose (mg/dL) 198 H 176 H (75-99) mg/dL Calcium (8.4-10.2) mg/dL Total Protein (6.3-8.2) g/dL Albumin (3.5-5.0) g/dL Crossmatch 01/14/17 01/14/17 01/14/17 Range/Units 05:00 05:00 07:35 WBC 21.8 H (3.8-10.6) k/uL Hgb (11.4-16.0) gm/dL RDW 16.0 H (11.5-15.5) % Neutrophils # 20.2 H (1.3-7.7) k/uL Neutrophils # (Manual) (1.3-7.7) k/uL Lymphocytes # 0.7 L (1.0-4.8) k/uL Lymphocytes # (Manual) (1.0-4.8) k/uL ABG pH (7.35-7.45) ABG pCO2 28 L (35-45) mmHg ABG pO2 282 H (83-108) mmHg ABG HCO3 16 L (21-25) mmol/L ABG Total CO2 17 L (19-24) mmol/L ABG O2 Saturation 99.9 H (94-97) % Potassium 3.3 L (3.5-5.1) mmol/L Chloride 112 H (98-107) mmol/L Carbon Dioxide 15 L (22-30) mmol/L BUN 48 H (7-17) mg/dL Creatinine 1.40 H (0.52-1.04) mg/dL Glucose 195 H (74-99) mg/dL POC Glucose (mg/dL) (75-99) mg/dL Calcium 7.9 L (8.4-10.2) mg/dL Total Protein 4.2 L (6.3-8.2) g/dL Albumin 2.3 L (3.5-5.0) g/dL Crossmatch Microbiology - Last 24 Hours (Table) 01/12/17 21:28 Urine Culture - Preliminary Urine,Catheterized 01/12/17 12:10 Blood Culture - Preliminary Blood No Growth after 24 hours
[2017-01-14] MEDS ORDERED: SODIUM CHLORIDE 0.9% 1,000 ML IV ONE ×2 (09:59→18:16)
--- NOTE | 2017-01-14 10:02 | P.PN ---
Subjective Principal diagnosis: Large bowel obstruction status post exploratory laparotomy and Gardiner's procedure with ureteral repair 86-year-old female patient seen and examined at bedside. She is currently still under endotracheal intubation and ventilated. She is currently not alert on the vent. Per nursing she has had 200 mL of serosanguineous fluid from her SURYA drain overnight. Her midline incision dressing is saturated. Ostomy has put out 20 mL of a malodorous fluid. She is currently receiving a fluid bolus. Urine output has been 50-60 mL per hour over night. The patient is currently on levophed and this is actively being decreased by the ICU staff. Objective - Vital Signs Vital signs: Vital Signs Temp 99.0 F 01/14/17 08:00 Pulse 138 H 01/14/17 09:00 Resp 24 01/14/17 07:00 BP 92/59 01/14/17 06:00 Pulse Ox 99 01/14/17 09:00 Intake & Output 01/13/17 01/14/17 01/14/17 18:59 06:59 18:59 Intake Total 5670 4489.606 490.640 Output Total 900 1775 210 Balance 4770 2714.606 280.640 Weight 69 kg 79.2 kg Intake: IV 5050 3343 269 ART line 43 9 Dextrose 5% in Water 850 500 150 ml @ 50 mls/hr IV .Q20H [facility] with Sodium Bicarb (1 Meq/ml) 150 ml Rx#: [id number] Dextrose 5%-0.2% NaCl 1, 800 000 ml @ 200 mls/hr IV . Q5H35M [facility] with Sodium Bicarb (1 Meq/ml) 100 ml with Potassium Chloride 30 meq Rx#:[id number] Levofloxacin 500Mg-D5w 100 Pmx 500 mg In Dextrose/ Water 1 100ml.bag @ 100 mls/hr IVPB Q24H [facility] Rx#: [id number] Magnesium Sulfate-D5w Pmx 200 200 1 gm In Dextrose/Water 1 100ml.bag @ 100 mls/hr IVPB Q1H [facility] Rx#: [id number] Potassium Chloride 20 meq 450 50 In Water For Injection 1 100ml.bag @ 50 mls/hr IVPB Q2H [facility] Rx#: [id number] Sodium Chloride 0.9% 1, 1000 1500 000 ml @ 500 mls/hr IV . Q2H ONE Rx#:[id number] ceFAZolin 1,000 mg In 100 Dextrose/Water 1 50ml.bag @ 100 mls/hr IVPB Q12HR [facility] Rx#:[id number] kvo 200 60 metroNIDAZOLE-NS PMX 500 200 mg In Saline 1 100ml.bag @ 100 mls/hr IVPB Q8H [facility] Rx#:[id number] zosyn 50 Intake, IV Titration 1146.606 221.640 Amount Norepinephrin 16 mg-0.9% 70.017 148.5 Ns Pmx 16 mg In 250 ml @ Titrate IV .Q0M [facility] Rx#: [id number] Propofol 1,000 mg In 100 76.589 73.140 ml @ Titrate IV .Q0M [facility] Rx#:[id number] Sodium Chloride 0.9% 1, 1000 000 ml @ 999 mls/hr IV . Q1H1M [facility] Rx#:[id number] Blood Product 620 Rc As-1 Unit 310 [id number] Rc As-3 Unit 310 [id number] Output: Drainage 610 NG tube 450 Right Lower Abdomen 160 Urine 200 665 210 Stool 500 Estimated Blood Loss 700 Other: Voiding Method Indwelling Catheter Indwelling Catheter ABP, PAP, CO, CI - Last Documented Arterial Blood Pressure 120/63 - Constitutional Constitutional Comment(s): Currently intubated and on ventilator - Neck Neck: Absent: lymphadenopathy, stridor, thyromegaly - Respiratory Details: No difficulty with ventilation with endotracheal intubation - Cardiovascular Details: Tachycardic in the 110s to 120s. - Gastrointestinal Gastrointestinal Comment(s): Soft, nontender, nondistended, incisions site with mild serous drainage, SURYA drain in place with 200 mL of serosanguineous fluid overnight, no rebound, no guarding - Genitourinary Genitourinary Comment(s): Urinary Martines in place - Integumentary Integumentary: Present: normal turgor - Neurologic Neurologic Comment(s): Unable to examine secondary to ventilated status. - Labs CBC & Chem 7: 01/14/17 05:00 01/14/17 05:00 Labs: Abnormal Lab Results - Last 24 Hours (Table) 01/12/17 01/13/17 01/13/17 Range/Units 12:10 11:54 19:01 WBC (3.8-10.6) k/uL Hgb (11.4-16.0) gm/dL RDW (11.5-15.5) % Neutrophils # (1.3-7.7) k/uL Neutrophils # (Manual) (1.3-7.7) k/uL Lymphocytes # (1.0-4.8) k/uL Lymphocytes # (Manual) (1.0-4.8) k/uL ABG pH 7.23 L (7.35-7.45) ABG pCO2 (35-45) mmHg ABG pO2 275 H (83-108) mmHg ABG HCO3 16 L (21-25) mmol/L ABG Total CO2 17 L (19-24) mmol/L ABG O2 Saturation 99.8 H (94-97) % Potassium (3.5-5.1) mmol/L Chloride (98-107) mmol/L Carbon Dioxide (22-30) mmol/L BUN (7-17) mg/dL Creatinine (0.52-1.04) mg/dL Glucose (74-99) mg/dL POC Glucose (mg/dL) 114 H (75-99) mg/dL Calcium (8.4-10.2) mg/dL Total Protein (6.3-8.2) g/dL Albumin (3.5-5.0) g/dL Crossmatch See Detail 01/13/17 01/13/17 01/13/17 Range/Units 19:15 20:30 20:30 WBC 13.8 H (3.8-10.6) k/uL Hgb 10.9 L (11.4-16.0) gm/dL RDW 15.7 H (11.5-15.5) % Neutrophils # (1.3-7.7) k/uL Neutrophils # (Manual) 13.50 H (1.3-7.7) k/uL Lymphocytes # (1.0-4.8) k/uL Lymphocytes # (Manual) 0.14 L (1.0-4.8) k/uL ABG pH (7.35-7.45) ABG pCO2 (35-45) mmHg ABG pO2 (83-108) mmHg ABG HCO3 (21-25) mmol/L ABG Total CO2 (19-24) mmol/L ABG O2 Saturation (94-97) % Potassium 2.9 L* (3.5-5.1) mmol/L Chloride 113 H (98-107) mmol/L Carbon Dioxide 18 L (22-30) mmol/L BUN 51 H (7-17) mg/dL Creatinine 1.44 H (0.52-1.04) mg/dL Glucose 190 H (74-99) mg/dL POC Glucose (mg/dL) 157 H (75-99) mg/dL Calcium 7.5 L (8.4-10.2) mg/dL Total Protein 4.1 L (6.3-8.2) g/dL Albumin 2.3 L (3.5-5.0) g/dL Crossmatch 01/13/17 01/14/17 01/14/17 Range/Units 23:14 01:42 03:11 WBC (3.8-10.6) k/uL Hgb (11.4-16.0) gm/dL RDW (11.5-15.5) % Neutrophils # (1.3-7.7) k/uL Neutrophils # (Manual) (1.3-7.7) k/uL Lymphocytes # (1.0-4.8) k/uL Lymphocytes # (Manual) (1.0-4.8) k/uL ABG pH 7.30 L (7.35-7.45) ABG pCO2 (35-45) mmHg ABG pO2 170 H (83-108) mmHg ABG HCO3 17 L (21-25) mmol/L ABG Total CO2 18 L (19-24) mmol/L ABG O2 Saturation 99.0 H (94-97) % Potassium (3.5-5.1) mmol/L Chloride (98-107) mmol/L Carbon Dioxide (22-30) mmol/L BUN (7-17) mg/dL Creatinine (0.52-1.04) mg/dL Glucose (74-99) mg/dL POC Glucose (mg/dL) 198 H 176 H (75-99) mg/dL Calcium (8.4-10.2) mg/dL Total Protein (6.3-8.2) g/dL Albumin (3.5-5.0) g/dL Crossmatch 01/14/17 01/14/17 01/14/17 Range/Units 05:00 05:00 07:35 WBC 21.8 H (3.8-10.6) k/uL Hgb (11.4-16.0) gm/dL RDW 16.0 H (11.5-15.5) % Neutrophils # 20.2 H (1.3-7.7) k/uL Neutrophils # (Manual) (1.3-7.7) k/uL Lymphocytes # 0.7 L (1.0-4.8) k/uL Lymphocytes # (Manual) (1.0-4.8) k/uL ABG pH (7.35-7.45) ABG pCO2 28 L (35-45) mmHg ABG pO2 282 H (83-108) mmHg ABG HCO3 16 L (21-25) mmol/L ABG Total CO2 17 L (19-24) mmol/L ABG O2 Saturation 99.9 H (94-97) % Potassium 3.3 L (3.5-5.1) mmol/L Chloride 112 H (98-107) mmol/L Carbon Dioxide 15 L (22-30) mmol/L BUN 48 H (7-17) mg/dL Creatinine 1.40 H (0.52-1.04) mg/dL Glucose 195 H (74-99) mg/dL POC Glucose (mg/dL) (75-99) mg/dL Calcium 7.9 L (8.4-10.2) mg/dL Total Protein 4.2 L (6.3-8.2) g/dL Albumin 2.3 L (3.5-5.0) g/dL Crossmatch Microbiology - Last 24 Hours (Table) 01/12/17 21:28 Urine Culture - Preliminary Urine,Catheterized 01/12/17 12:10 Blood Culture - Preliminary Blood No Growth after 24 hours Assessment and Plan (1) Large bowel obstruction Status: Acute Plan: Postop day #1 from exploratory laparotomy and Gardiner's procedure with ureteral repair - Continue ventilation per ICU - Decrease vasopressors as tolerated by patient - Continue IV fluid therapy - Continue antibiotic therapy - Continue SURYA care - Continue local wound care - Continue ICU management
--- NOTE | 2017-01-14 11:21 | CONS ---
CONSULTATION ATTENDING: Dr. Saldaña. Mrs. Grove is an 86-year-old female who came into the emergency room with abdominal discomfort and evidence of colon obstruction. She underwent surgical intervention by Dr. Woody. Cardiology consultation was requested because of history of atrial fibrillation. The patient remains intubated. She is following verbal commands. She is on a 20 mcg of norepinephrine. She is in atrial fibrillation with episode of rapid ventricular response up to the 120s, does improve when she gets sedated. She has received a lot of fluid on presentation. The patient underwent colectomy and colostomy and had a left ureteral injury that was addressed by Dr. Valdovinos. There is no history of CHF in the past or history of documented ischemic heart disease that is available to me. She had no acute evidence of ventricular ectopic activity, according to the nursing staff. PAST SURGICAL HISTORY: Remarkable for appendectomy, cholecystectomy and tonsillectomy. I am not able to obtain the review of systems. Patient is intubated and sedated. MEDICATIONS: Prior to admission included: 1. Eliquis 2.5 mg twice a day. 2. Omeprazole 20 mg twice a day. 3. Losartan-HCT 100-25 mg daily and. 4. Lipitor 20 mg daily. PHYSICAL EXAMINATION: She is an 86-year-old female; intubated, no apparent distress. Blood pressure 101/50 on norepinephrine, heart rate in the 120s. HEAD: Normocephalic. EYES: Sclerae anicteric. NECK: No bruits. LUNGS: Clear to auscultation anteriorly. No wheezes. HEART: Irregular irregular, S1, S2. No S3 with a systolic murmur at the base. No diastolic murmur. No rub. ABDOMEN: Soft. Colostomy noted. Hypoactive bowel sounds. EXTREMITIES: No edema. LAB DATA: Revealed a pH 7.38, a pCO2 of 28, PO2 of 282. BUN and creatinine 48 and 1.4. The patient has a history of chronic kidney disease and on presentation, her creatinine was 2.64. Her potassium is 3.3 and is being replaced. Her hemoglobin is 11.7, her white blood cells 21.8, which is worse than yesterday. Her EKG revealed atrial fibrillation with a right bundle branch block and nonspecific ST-T wave changes. IMPRESSION: 1. Status post colostomy with bowel obstruction and injuries to the ureter, treated. 2. Atrial fibrillation, chronic, with episodes of rapid ventricular response. 3. Hypotension on vasopressors. 4. Renal failure. RECOMMENDATION: From the cardiac standpoint, at this time, patient is not a candidate for a beta marc to control ventricular response. Her rapid ventricular response is a response to her stress related to the surgery and the abdominal discomfort. I will put her on IV digoxin. Will follow her heart rate. If her blood pressure is stable and she is off the norepinephrine, then a beta marc can be an option. Otherwise, the other option is to add IV amiodarone, although that can affect her blood pressure as well. Thank you for this consult. Will follow with you. CEE / ERNESTINAN: [id number] /
--- NOTE | 2017-01-14 11:55 | P.PN ---
Subjective Principal diagnosis: Status post laparotomy with Joanna's procedure, abdominal sepsis. This is an 86-year-old female presented to the ER with 1 day history of abdominal pain. Patient has not been eating well, pain was mostly on the right side of the abdomen, computed tomography scan of the abdomen in another facility several weeks ago was reported as normal. Patient is primarily a patient of Dr. Saldaña, she had no nausea no vomiting, no blood in the stools on presentation, however the patient was poor historian according to the surgeon on the case. Her last colonoscopy was supposedly over 10 years ago. No family history of GI malignancy. She does have history of diverticulitis in the distant past. CT of the abdomen and pelvis was done on 01/12/2017, and was relatively unremarkable. Patient underwent sigmoidoscopy, however there was evidence of sigmoid obstruction and the surgeon could not pass the scope beyond 30 cm. Then the patient underwent exploratory laparotomy, and she was found to have bowel obstruction, she underwent colectomy with colostomy however she sustained left ureteral injury and this was addressed by Dr. Fonseca/urologist on the case. Patient was admitted to the intensive care unit, on mechanical ventilation, chest x-ray is now pending, ABG is pending, antibiotics were addressed, and infectious disease consultation was initiated. Patient is hemodynamically stable, sedated. In no distress at this point. Her primary left ureteral injury was identified and prepared with ureteral ureterostomy. Patient was reevaluated today on 01/14/2017, remains on mechanical ventilation, her ventilator settings are assist control rate of 16, tidal volume is 400, FiO2 is 35%, and PEEP is 5. Lung mechanics seem to be normal including peak airway pressure, and plateau pressures. I: E ratio is 1:2.5. ABG showed a pO2 of 282 pCO2 of 28 pH of 7.38, patient was placed on sodium bicarb drip yesterday for metabolic acidosis which seems to be responding to treatment well. Bicarb today is 16. Renal profile seems to be improving, patient had a creatinine of 1.40 today, it was as high as 2.64 on admission. Chest x-ray showed cardiomegaly, left lower lobe atelectasis, and possibly a small tiny left pleural effusion. Patient continues to have a nasogastric tube in place, no feeding has been started at this point, may have to consider TPN. Patient is on multiple antibiotics, infectious disease consultation is pending, WBC count today is 21.8 hemoglobin is 11.7. Continues to have a SURYA drain in place, the drainage is light, red in color. This morning patient had to be placed on norepinephrine however I have instructed the nurses to give the patient more fluids, and hopefully cut down on the norepinephrine. I also cut down on her propofol dose, advised fluid boluses hoping to improve her blood pressure and her A. fib/RVR. Cardiology was also consulted regarding her atrial fibrillation , patient does have history of chronic A. fib. Objective - Vital Signs Vital signs: Vital Signs Temp 99.0 F 01/14/17 08:00 Pulse 117 H 01/14/17 11:32 Resp 24 01/14/17 07:00 BP 92/59 01/14/17 06:00 Pulse Ox 100 01/14/17 10:00 Intake & Output 01/13/17 01/14/17 01/14/17 18:59 06:59 18:59 Intake Total 5670 4489.606 613.640 Output Total 900 1775 390 Balance 4770 2714.606 223.640 Weight 69 kg 79.2 kg Intake: IV 5050 3343 392 ART line 43 12 Dextrose 5% in Water 850 500 200 ml @ 50 mls/hr IV .Q20H [facility]Y with Sodium Bicarb (1 Meq/ml) 150 ml Rx#: [id number] Dextrose 5%-0.2% NaCl 1, 800 000 ml @ 200 mls/hr IV . Q5H35M REMY with Sodium Bicarb (1 Meq/ml) 100 ml with Potassium Chloride 30 meq Rx#:[id number] Levofloxacin 500Mg-D5w 100 Pmx 500 mg In Dextrose/ Water 1 100ml.bag @ 100 mls/hr IVPB Q24H [facility] Rx#: [id number] Magnesium Sulfate-D5w Pmx 200 200 1 gm In Dextrose/Water 1 100ml.bag @ 100 mls/hr IVPB Q1H [facility] Rx#: [id number] Potassium Chloride 20 meq 450 50 In Water For Injection 1 100ml.bag @ 50 mls/hr IVPB Q2H [facility] Rx#: [id number] Sodium Chloride 0.9% 1, 1000 1500 000 ml @ 500 mls/hr IV . Q2H ONE Rx#:[id number] ceFAZolin 1,000 mg In 100 Dextrose/Water 1 50ml.bag @ 100 mls/hr IVPB Q12HR [facility] Rx#:[id number] kvo 200 80 metroNIDAZOLE-NS PMX 500 200 mg In Saline 1 100ml.bag @ 100 mls/hr IVPB Q8H [facility] Rx#:[id number] zosyn 50 50 Intake, IV Titration 1146.606 221.640 Amount Norepinephrin 16 mg-0.9% 70.017 148.5 Ns Pmx 16 mg In 250 ml @ Titrate IV .Q0M [facility] Rx#: [id number] Propofol 1,000 mg In 100 76.589 73.140 ml @ Titrate IV .Q0M [facility] Rx#:[id number] Sodium Chloride 0.9% 1, 1000 000 ml @ 999 mls/hr IV . Q1H1M [facility] Rx#:[id number] Blood Product 620 Rc As-1 Unit 310 [id number] Rc As-3 Unit 310 [id number] Output: Drainage 610 80 NG tube 450 Right Lower Abdomen 160 80 Urine 200 665 310 Stool 500 Estimated Blood Loss 700 Other: Voiding Method Indwelling Catheter Indwelling Catheter ABP, PAP, CO, CI - Last Documented Arterial Blood Pressure 101/52 - Exam Physical Exam: Revealed an 86-year-old female on mechanical ventilation, endotracheal tube is intact, orogastric tube is intact. HEENT:[Neck is supple.] [No neck masses.] [No thyromegaly.] [No JVD.] Chest: [Minimal fine crackles at the bases, no rhonchi, no wheezes. Cardiac Exam: [Tachycardic, Irregular irregular rhythm Normal S1 and S2, no S3 gallop, no murmur.] Abdomen: [Postsurgical, soft, incision looks clean, patient has a binder in place, left lower quadrant colostomy bag is noted. SURYA drain was also noted in the right lower quadrant area. Extremities: [No clubbing, no edema, no cyanosis.] Neurological Exam: Cannot be assessed. However according to the nurse patient was appropriate earlier, and she was off sedation for a short time. Patient was able to follow instructions. Skin: No rashes, no ulcerations. Psychiatric: Cannot be addressed. [place] skeletal: Cannot be addressed patient is sedated. - Labs CBC & Chem 7: 01/14/17 05:00 01/14/17 05:00 Labs: Abnormal Lab Results - Last 24 Hours (Table) 01/12/17 01/13/17 01/13/17 Range/Units 12:10 11:54 19:01 WBC (3.8-10.6) k/uL Hgb (11.4-16.0) gm/dL RDW (11.5-15.5) % Neutrophils # (1.3-7.7) k/uL Neutrophils # (Manual) (1.3-7.7) k/uL Lymphocytes # (1.0-4.8) k/uL Lymphocytes # (Manual) (1.0-4.8) k/uL ABG pH 7.23 L (7.35-7.45) ABG pCO2 (35-45) mmHg ABG pO2 275 H (83-108) mmHg ABG HCO3 16 L (21-25) mmol/L ABG Total CO2 17 L (19-24) mmol/L ABG O2 Saturation 99.8 H (94-97) % Potassium (3.5-5.1) mmol/L Chloride (98-107) mmol/L Carbon Dioxide (22-30) mmol/L BUN (7-17) mg/dL Creatinine (0.52-1.04) mg/dL Glucose (74-99) mg/dL POC Glucose (mg/dL) 114 H (75-99) mg/dL Calcium (8.4-10.2) mg/dL Total Protein (6.3-8.2) g/dL Albumin (3.5-5.0) g/dL Crossmatch See Detail 01/13/17 01/13/17 01/13/17 Range/Units 19:15 20:30 20:30 WBC 13.8 H (3.8-10.6) k/uL Hgb 10.9 L (11.4-16.0) gm/dL RDW 15.7 H (11.5-15.5) % Neutrophils # (1.3-7.7) k/uL Neutrophils # (Manual) 13.50 H (1.3-7.7) k/uL Lymphocytes # (1.0-4.8) k/uL Lymphocytes # (Manual) 0.14 L (1.0-4.8) k/uL ABG pH (7.35-7.45) ABG pCO2 (35-45) mmHg ABG pO2 (83-108) mmHg ABG HCO3 (21-25) mmol/L ABG Total CO2 (19-24) mmol/L ABG O2 Saturation (94-97) % Potassium 2.9 L* (3.5-5.1) mmol/L Chloride 113 H (98-107) mmol/L Carbon Dioxide 18 L (22-30) mmol/L BUN 51 H (7-17) mg/dL Creatinine 1.44 H (0.52-1.04) mg/dL Glucose 190 H (74-99) mg/dL POC Glucose (mg/dL) 157 H (75-99) mg/dL Calcium 7.5 L (8.4-10.2) mg/dL Total Protein 4.1 L (6.3-8.2) g/dL Albumin 2.3 L (3.5-5.0) g/dL Crossmatch 01/13/17 01/14/17 01/14/17 Range/Units 23:14 01:42 03:11 WBC (3.8-10.6) k/uL Hgb (11.4-16.0) gm/dL RDW (11.5-15.5) % Neutrophils # (1.3-7.7) k/uL Neutrophils # (Manual) (1.3-7.7) k/uL Lymphocytes # (1.0-4.8) k/uL Lymphocytes # (Manual) (1.0-4.8) k/uL ABG pH 7.30 L (7.35-7.45) ABG pCO2 (35-45) mmHg ABG pO2 170 H (83-108) mmHg ABG HCO3 17 L (21-25) mmol/L ABG Total CO2 18 L (19-24) mmol/L ABG O2 Saturation 99.0 H (94-97) % Potassium (3.5-5.1) mmol/L Chloride (98-107) mmol/L Carbon Dioxide (22-30) mmol/L BUN (7-17) mg/dL Creatinine (0.52-1.04) mg/dL Glucose (74-99) mg/dL POC Glucose (mg/dL) 198 H 176 H (75-99) mg/dL Calcium (8.4-10.2) mg/dL Total Protein (6.3-8.2) g/dL Albumin (3.5-5.0) g/dL Crossmatch 01/14/17 01/14/17 01/14/17 Range/Units 05:00 05:00 07:35 WBC 21.8 H (3.8-10.6) k/uL Hgb (11.4-16.0) gm/dL RDW 16.0 H (11.5-15.5) % Neutrophils # 20.2 H (1.3-7.7) k/uL Neutrophils # (Manual) (1.3-7.7) k/uL Lymphocytes # 0.7 L (1.0-4.8) k/uL Lymphocytes # (Manual) (1.0-4.8) k/uL ABG pH (7.35-7.45) ABG pCO2 28 L (35-45) mmHg ABG pO2 282 H (83-108) mmHg ABG HCO3 16 L (21-25) mmol/L ABG Total CO2 17 L (19-24) mmol/L ABG O2 Saturation 99.9 H (94-97) % Potassium 3.3 L (3.5-5.1) mmol/L Chloride 112 H (98-107) mmol/L Carbon Dioxide 15 L (22-30) mmol/L BUN 48 H (7-17) mg/dL Creatinine 1.40 H (0.52-1.04) mg/dL Glucose 195 H (74-99) mg/dL POC Glucose (mg/dL) (75-99) mg/dL Calcium 7.9 L (8.4-10.2) mg/dL Total Protein 4.2 L (6.3-8.2) g/dL Albumin 2.3 L (3.5-5.0) g/dL Crossmatch Microbiology - Last 24 Hours (Table) 01/12/17 21:28 Urine Culture - Preliminary Urine,Catheterized 01/12/17 12:10 Blood Culture - Preliminary Blood No Growth after 24 hours Assessment and Plan Plan: Impression: 1 large bowel obstruction, status post colectomy with colostomy and left ureteral injury requiring repair postoperative day #1 2 postoperative respiratory failure, requiring intubation and mechanical ventilation expected considering the surgery involved. 3 history of chronic atrial fibrillation 4 history of benign essential hypertension 5 history of osteoarthritis 6 acute abdominal sepsis is suspected. 7 postoperative hypotension, most likely related to fluid status,/hypovolemic in nature, strongly doubt hypotension secondary to abdominal sepsis at this point. This will likely improve with fluid boluses, and with control of the atrial fibrillation/RVR. Recommendation: Continue present supportive care measures including mechanical ventilation, antibiotics, bronchodilators, GI and DVT prophylaxis, we will address nutritional support and possibly TPN depending on the overall condition in the next 24 hours. Ventilator settings were adjusted, fluid boluses were recommended, CVP line will be placed, discussed her condition with the surgeon on the case, and we'll continue to follow. Critical care time is 34 minutes. Time with Patient: Greater than 30
[2017-01-14] MEDS: DIGOXIN 250 MCG/ML 2 ML AMP IVP SCH (12:03)
[2017-01-14 12:42] LABS: Glucose,Whole Blood 147 mg/dL (75-99)
--- NOTE | 2017-01-14 15:53 | ECHOF ---
Referral Reason:afib MEASUREMENTS -------- HEIGHT: 154.9 cm WEIGHT: 78.9 kg BP: 101/52 RVIDd: 3.0 cm (< 3.3) IVSd: 1.1 cm (0.6 - 1.1) LVIDd: 3.3 cm (3.9 - 5.3) LVPWd: 1.1 cm (0.6 - 1.1) IVSs: 1.7 cm LVIDs: 2.4 cm LVPWs: 1.8 cm LA Diam: 3.3 cm (2.7 - 3.8) LAESV Index (A-L): 29.44 ml/m Ao Diam: 3.6 cm (2.0 - 3.7) AV Cusp: 1.5 cm (1.5 - 2.6) MV EXCURSION: 13.341 mm (> 18.000) MV EF SLOPE: 79 mm/s (70 - 150) EPSS: 0.3 cm AV maxP.63 mmHg AV meanP.60 mmHg RAP: 5.00 mmHg RVSP: 27.13 mmHg FINDINGS -------- Atrial fibrillation. This was a technically adequate study. The left ventricular size is normal. There is borderline concentric left ventricular hypertrophy. Overall left ventricular systolic function is normal with, an EF between 60 - 65 %. The right ventricle is normal in size. LA is midly dilated 29-33ml/m2. The right atrium is normal in size. There is mild aortic valve sclerosis. There is mild aortic stenosis present. Peak/mean gradient across the Aortic Valve is 13.63mmHg / 5.60mmHg. Mild mitral annular calcification present. Mild mitral regurgitation is present. The tricuspid valve appears structurally normal. Mild tricuspid regurgitation present. The pulmonic valve was not well visualized. There is no pulmonic regurgitation present. The aortic root size is normal. Normal inferior vena cava with normal inspiratory collapse consistent with estimated right atrial pressure of 5 mmHg. There is no pericardial effusion. CONCLUSIONS -------- 1. Atrial fibrillation. 2. Mild mitral regurgitation is present. 3. The tricuspid valve appears structurally normal. 4. Mild tricuspid regurgitation present. 5. The pulmonic valve was not well visualized. 6. There is no pulmonic regurgitation present. 7. The aortic root size is normal. 8. Normal inferior vena cava with normal inspiratory collapse consistent with estimated right atrial pressure of 5 mmHg. 9. There is no pericardial effusion. 10. This was a technically adequate study. 11. There is borderline concentric left ventricular hypertrophy. 12. Overall left ventricular systolic function is normal with, an EF between 60 - 65 %. 13. LA is midly dilated 29-33ml/m2. 14. There is mild aortic valve sclerosis. 15. There is mild aortic stenosis present. 16. Peak/mean gradient across the Aortic Valve is 13.63mmHg / 5.60mmHg. 17. Mild mitral annular calcification present. SPICE MILLER: Cheryle Vann RDCS
--- NOTE | 2017-01-14 16:24 | FL ---
Fluoroscopy INDICATION: Pain FINDINGS: Fluoroscopy time: 46 seconds. Images obtained: 1. IMPRESSIONS: 1. Documentation of fluoroscopy.
[2017-01-14 17:39] LABS: Glucose,Whole Blood 126 mg/dL (75-99)
[2017-01-14] MEDS: NOREPINEPHRIN 16 MG-0.9%NS PMX 16 MG/250 ML ML IV SCH (18:17)
[2017-01-14] MEDS: SODIUM BICARB IV SCH ×2 (18:45)
[2017-01-14] MEDS: DEXTROSE 5% IV SCH ×2 (18:45)
[2017-01-14] MEDS: WATER IV SCH ×2 (18:45)
[2017-01-14] MEDS ORDERED: DEXTROSE 5% IN WATER 1,000 ML with SODIUM BICARB (1 MEQ/ML) 150 ML IV SCH (19:00)
[2017-01-14 20:45] LABS: Potassium 2.5 mmol/L (3.5-5.1)
[2017-01-14] MEDS ORDERED: Potassium Replacement Protocol 1 EACH MISC MISCELLANE PRN (20:50)
--- NOTE | 2017-01-14 22:09 | CONS ---
CONSULTATION DATE OF SERVICE: 01/14/2017 REASON FOR CONSULTATION: Abdominal sepsis and antibiotic management. HISTORY OF PRESENT ILLNESS: The patient is an 86-year-old female who presented to the ER at [facility] on 01/12/2017 with a chief complaint of abdominal pain. The patient was evaluated by the ER physician. He did have a CT of abdomen and pelvis that did show mechanical large bowel obstruction with narrowing at the distal sigmoid colon with high- density material that may relate to prior anastomotic site. The patient has been evaluated by Dr. Woody from general surgery. The patient did have a colonoscopy done on 01/13/2017 to confirm tumor versus benign stricture with post colonoscopy. 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 Patient subsequently was taken to the OR and is status post sigmoid colectomy and Joanna procedure and placement of SURYA drain. The patient did have incidental left ureteral injury that was addressed by Dr. Valdovinos with left ureterostomy. Post surgery, the patient has been admitted to the ICU and did require pressors in the form of Levophed. Patient did not have any high-grade fever since he has been admitted to the hospital. He did have a normal white count of 9.2 on admission that was 13.8 yesterday and up 21.8 today. There are no OR cultures; however, blood cultures done on 01/12 have been negative. Urine cultures have been negative as well. The patient has been treated with multiple antibiotics in the form of Zosyn, Levaquin and Flagyl. ID was asked to see the patient today for further recommendation regarding antibiotic therapy. Most of this information has been obtained from prior review of the chart and talking to the nursing staff with the patient currently intubated on the vent and no family members available at the bedside. REVIEW OF SYSTEMS: Could not be reliably obtained, though the possible has been mentioned in the HPI. PAST MEDICAL HISTORY: Significant for hypertension, hyperlipidemia, osteoarthritis, atrial fibrillation, gastroesophageal reflux disease, varicose veins, chronic back pain, diverticular disease, hiatal hernia. PAST SURGICAL HISTORY: Appendectomy, cholecystectomy, tonsillectomy, EGD, colonoscopy. SOCIAL HISTORY: No history of smoking, drinking or drug use. FAMILY HISTORY: Father with history of CO, at age of 56 from an CO. Mother of old age at 89. ALLERGIES: No known drug allergies. MEDICATIONS: The patient is currently on: 1. DuoNeb. 2. Lanoxin. 3. Heparin. 4. Dilaudid. 5. Humalog. 6. Levofloxacin. 7. Flagyl. 8. Narcan. 9. Levophed. 10.Zofran. 11.Protonix. 12.Tazobactam. 13.Diprivan. EXAMINATION: Her blood pressure is 113/48, pulse of 109, temperature of 98. She is 100% on 35% FiO2. GENERAL DESCRIPTION: An elderly female lying in bed in no distress. No tachypnea or accessory muscle of respiration use. HEENT: Shows slight pallor. No scleral icterus. Oral mucosa is dry. NECK: Trachea is central. No thyromegaly. LUNGS: Unlabored breathing. Clear to auscultation anteriorly. HEART: S1, S2. Regular rate and rhythm. ABDOMEN: Soft. Slightly distended. No guarding. No rigidity. SURYA drainage is mostly serosanguineous secretion. No purulence. EXTREMITIES: No edema of feet. SKIN: No rashes. No mass palpable. NEUROLOGICAL: The patient is currently sedated on the vent. LABS: BUN of 40 with creatinine of 1.40. Hemoglobin is 11.7, white count of 21.8. Blood cultures have been negative so far. DIAGNOSTIC IMPRESSION AND PLAN: Patient with sepsis in a patient currently with hypotension requiring pressor support with elevated white count, met criteria for systemic inflammatory response syndrome. Source is likely abdominal in a patient who was noticed to have a sigmoid mass, status post resection with incidental injury to the left ureter. The likely organism that will be grown will be the enteric gram-negative; most aerobes, anaerobes and less likely gram-positive pathogen. PLAN: 1. Recommend increase adjusting the dose of Zosyn to 3.375 gm q.8 hours to cover for possible nosocomial pathogen. Continue Flagyl. Discontinue Levaquin. 2. Gentle IV fluid. 3. Will follow up on the clinical condition and culture to further adjust her medication if needed. Thank you for this consultation. Will follow this patient along with you. MMODL / IJN: [id number] / MTDD
--- NOTE | 2017-01-14 23:18 | PN ---
PROGRESS NOTE ATTENDING PHYSICIAN: Dr. Woody. CONSULTING PHYSICIAN: Dr. Gibson Saldaña. CHIEF COMPLAINT: Re-evaluation. HISTORY OF PRESENT ILLNESS: This is an 86-year-old female, status post abdominal surgery for a bowel obstruction. The patient had a significant amount of food in the gastric and small-bowel, which was aspirated. Patient has hypotension treated with IV fluids and norepinephrine. The patient also has a history of chronic atrial fibrillation, rate in the 120s. Blood pressure is greater than 110. The patient on a ventilator, able to answer questions pretty appropriately with sedation being weaned down. She does have good urine output. She did have a ureteral repair also needed done at surgery. REVIEW OF SYSTEMS: Unobtainable from the patient in detail; however, does she denies any headaches, chest pain, shortness of breath. Does have a soreness in the throat and abdominal pain. The patient does have an IDC with adequate urine output, at least about 50 cc an hour. Extremities have chronic knee pain. She does have edema. CONSTITUTIONAL: No fever. PHYSICAL EXAMINATION: Elderly female on a ventilator, 50% FiO2 and 5 of PEEP, maintaining oxygenation at 100% saturation. Blood gas revealed pH of 7.38, pCO2 28 and PO2 of 282. Chest x-ray: There is borderline cardiomegaly, left basilar air space disease and small left-sided effusion. The patient's echocardiogram reveals adequate left ventricular function. Cardiac reveals irregularly irregular heart rate in the 120s. ABDOMEN: Protuberant, tender. Bowel sounds absent. EXTREMITIES: Edema. NEURO: Able to move extremities and nod yes, no to simple questions. LABORATORY ASSESSMENT: White count of 21.8, hemoglobin 11.7, platelets are 331. Sodium 139, potassium 3.3, chloride 112, CO2 115, BUN 48, creatinine 1.4, glucose 195. Normal hepatic function. Albumin 2.3. ASSESSMENT: 1. Hypotension on vasopressors and fluids. 2. Status post abdominal surgery. 3. Status post bowel obstruction. 4. Acute on chronic renal failure, improving. 5. Hypokalemia. 6. Metabolic acidosis, resolved. 7. Ventilator support. 8. Atrial fibrillation, rapid ventricular rate. PLAN: Continue present medical regimen. Patient has been seen by Cardiology and ID. The patient has been placed on digoxin for A. fib. ID has recommended continuing Zosyn and Flagyl. Plan to continue present medical regimen otherwise. Regimen with ventilator support today, possibly discontinuing by tomorrow. Continue IV fluids and hemodynamic support as needed. Patient condition discussed with son and spouse. Prognosis remains guarded. CEE / ERNESTINAN: [id number] /
[2017-01-15] MEDS: INSULIN LISPRO (humaLOG) 300 UNIT/3 ML VIAL SQ SCH ×4 (00:26→18:09)
[2017-01-15 00:28] LABS: Glucose,Whole Blood 128 mg/dL (75-99)
[2017-01-15] MEDS: PIPERACILLIN-TAZOBACTAM 3.375 GM in DEXTROSE/WATER 1 50ML.BAG IVPB SCH ×3 (00:34→16:31)
[2017-01-15] MEDS: POTASSIUM CHLORIDE 20 MEQ in WATER FOR INJECTION 1 100ML.BAG IVPB SCH ×2 (00:38→02:38)
[2017-01-15] MEDS: NOREPINEPHRIN 16 MG-0.9%NS PMX 16 MG/250 ML ML IV SCH ×2 (01:38→17:48)
[2017-01-15] MEDS: HEPARIN SODIUM,PORCINE 5,000 UNIT/ML 1 ML VIAL SQ SCH ×3 (02:31→18:13)
[2017-01-15] MEDS: IPRATROPIUM-ALBUTEROL 3 ML NEB INHALATION SCH ×6 (03:08→23:24)
[2017-01-15] MEDS: PROPOFOL 1,000 MG/100 ML VIAL IV SCH ×3 (04:36→17:48)
[2017-01-15] MEDS: metroNIDAZOLE-NS PMX 500 MG in SALINE 1 100ML.BAG IVPB SCH ×3 (05:40→21:24)
[2017-01-15 05:46] LABS: Glucose,Whole Blood 144 mg/dL (75-99)
--- NOTE | 2017-01-15 06:49 | XR ---
EXAMINATION TYPE: XR chest 1V portable DATE OF EXAM: 01/15/2017 HISTORY: Tube placement. REFERENCE: Previous study dated 01/14/2017. FINDINGS: The patient is ET tube, NG tube and right internal jugular catheter remain in place, unchan ged in appearance. There is left basilar airspace disease. There are small, bilateral effusions. The heart is not enlarg ed. IMPRESSION: 1. LEFT BASILAR AIRSPACE DISEASE. 2. SMALL, BILATERAL EFFUSIONS.
[2017-01-15 07:33] LABS: ABG HCO3 19 mmol/L (21-25); ABG PCO2 30 mmHg (35-45); ABG PH 7.43 (7.35-7.45); ABG PO2 152 mmHg (83-108); ABG TCO2 20 mmol/L (19-24)
[2017-01-15 07:34] LABS: ABG Base Excess -4.3 mmol/L; ABG Oxygen Saturation 99.4 % (94-97)
[2017-01-15 07:58] LABS: Basophils % (A) 0 %; CH 27.3; CHCM 31.6; Eosinophils % (A) 0 %; HCT 32.3 % (34.0-46.0); HDW 3.61; HGB 10.4 gm/dL (11.4-16.0); Hypochromasia Moderate; Luc # (Auto) 0.16; Luc % (Auto) 1; Lymphocytes # (A) 0.8 k/uL (1.0-4.8); Lymphocytes % (A) 4 %; MCH 28.1 pg (25.0-35.0); MCHC 32.3 g/dL (31.0-37.0); MCV 86.9 fL (80.0-100.0); Mean Platelet Volume 6.8; Monocytes # (A) 0.5 k/uL (0-1.0); Monocytes % (A) 3 %; Neutrophils # (A) 18.2 k/uL (1.3-7.7); Neutrophils % (A) 93 %; Poikilocytosis Slight; RBC 3.72 m/uL (3.80-5.40); RDW 15.3 % (11.5-15.5); WBC 19.7 k/uL (3.8-10.6); WBC (Perox) 19.16
[2017-01-15] MEDS ORDERED: SODIUM CHLORIDE 0.9% 1,000 ML IV ONE ×2 (08:14→11:06)
[2017-01-15] MEDS: HYDROmorphone 1 MG/ML 1 ML SYRINGE IVP PRN ×2 (08:19→20:19)
[2017-01-15 08:22] LABS: Calcium 7.9 mg/dL (8.4-10.2); Magnesium 1.6 mg/dL (1.6-2.3); Phosphorous 1.7 mg/dL (2.5-4.5)
[2017-01-15 08:26] LABS: Potassium 2.9 mmol/L (3.5-5.1)
[2017-01-15] MEDS: CHLORHEXIDINE GLUCONATE 15 ML CUP MUCOUS MEM SCH ×2 (08:47→21:24)
[2017-01-15] MEDS: PANTOPRAZOLE 40 MG/10 ML VIAL IV SCH (08:47)
[2017-01-15] MEDS: DIGOXIN 250 MCG/ML 2 ML AMP IVP SCH (08:49)
[2017-01-15] MEDS: SODIUM CHLORIDE 0.9% 1,000 ML IV SCH ×2 (08:50→22:38)
[2017-01-15] MEDS ORDERED: POTASSIUM CHLORIDE 20 MEQ in WATER FOR INJECTION 1 100ML.BAG IVPB ONE ×3 (09:00→20:00)
[2017-01-15] MEDS ORDERED: Magnesium Replacement Protocol 1 EACH MISC MISCELLANE PRN (09:53)
[2017-01-15] MEDS: MAGNESIUM SULFATE-D5W PMX 1 GM in DEXTROSE/WATER 1 100ML.BAG IVPB SCH ×2 (10:59→12:16)
--- NOTE | 2017-01-15 11:15 | P.PN ---
Subjective Principal diagnosis: Large bowel obstruction status post exploratory laparotomy and Gardiner's procedure with ureteral repair 86-year-old female patient seen and examined at bedside. She is currently still under endotracheal intubation and ventilated. On sedation holiday the patient does respond to commands. She has had significant ostomy output overnight and into the morning. Urine output has been 50-60 mL per hour over night. She has been labile with hypotension. ICU staff has made adjustments with levophed and propofol accordingly. Objective - Vital Signs Vital signs: Vital Signs Temp 98.7 F 01/15/17 08:30 Pulse 120 H 01/15/17 10:00 Resp 21 01/15/17 10:00 BP 82/46 01/14/17 23:00 Pulse Ox 99 01/15/17 10:00 Intake & Output 01/14/17 01/15/17 01/15/17 18:59 06:59 18:59 Intake Total 2504.217 3569.700 1575.533 Output Total 1380 1510 465 Balance 3674.993 7373.700 1110.533 Weight 77.4 kg Intake: IV 1174 2246 1434.0 0.9 for pressure 54 66 24 Dextrose 5% in Water 850 600 500 100 ml @ 50 mls/hr IV .Q20H REMY with Sodium Bicarb (1 Meq/ml) 150 ml Rx#: [id number] Piperacillin-Tazobactam 3 25.0 .375 gm In Dextrose/Water 1 50ml.bag @ 12.5 mls/hr IVPB Q8HR REMY Rx#: [id number] Potassium Chloride 20 meq 100 In Water For Injection 1 100ml.bag @ 50 mls/hr IVPB ONCE ONE Rx#: [id number] Potassium Chloride 20 meq 50 In Water For Injection 1 100ml.bag @ 50 mls/hr IVPB ONCE ONE Rx#: [id number] Potassium Chloride 20 meq 50 300 In Water For Injection 1 100ml.bag @ 50 mls/hr IVPB Q2H REMY Rx#: [id number] Sodium Chloride 0.9% 1, 75 000 ml @ 100 mls/hr IV . Q10H REMY Rx#:[id number] Sodium Chloride 0.9% 1, 1000 000 ml @ 999 mls/hr IV . Q1H1M ONE Rx#:[id number] kvo 220 1180 60 metroNIDAZOLE-NS PMX 500 200 100 100 mg In Saline 1 100ml.bag @ 100 mls/hr IVPB Q8H [facility] Rx#:[id number] zosyn 50 Intake, IV Titration 149.201 8344.700 141.533 Amount Norepinephrin 16 mg-0.9% 180.217 217.490 72.705 Ns Pmx 16 mg In 250 ml @ Titrate IV .Q0M [facility] Rx#: [id number] Piperacillin-Tazobactam 3 50 .375 gm In Dextrose/Water 1 50ml.bag @ 12.5 mls/hr IVPB BID@0900,2200 [facility] Rx#:[id number] Propofol 1,000 mg In 100 100.000 106.210 68.828 ml @ Titrate IV .Q0M [facility] Rx#:[id number] Sodium Chloride 0.9% 1, 1000 000 ml @ 999 mls/hr IV . Q1H1M ONE Rx#:[id number] Oral 1000 Output: Gastric Drainage 300 450 Drainage 210 50 100 Right Lower Abdomen 210 50 100 Urine 870 910 365 Stool 100 Other: Voiding Method Indwelling Catheter Indwelling Catheter Indwelling Catheter ABP, PAP, CO, CI - Last Documented Arterial Blood Pressure 134/90 - Constitutional Constitutional Comment(s): Currently intubated and ventilated - Neck Neck: Absent: lymphadenopathy, stridor, thyromegaly - Respiratory Details: No difficulty on ventilator - Cardiovascular Details: Mild tachycardia - Gastrointestinal Gastrointestinal Comment(s): Soft, ostomy is pink and patent, nondistended, incisions site clean dry and intact, SURYA drain in place - Integumentary Integumentary: Present: normal turgor - Labs CBC & Chem 7: 01/15/17 07:50 01/15/17 07:50 Labs: Abnormal Lab Results - Last 24 Hours (Table) 01/14/17 01/14/17 01/14/17 Range/Units 12:40 17:37 20:18 WBC (3.8-10.6) k/uL RBC (3.80-5.40) m/uL Hgb (11.4-16.0) gm/dL Hct (34.0-46.0) % Neutrophils # (1.3-7.7) k/uL Lymphocytes # (1.0-4.8) k/uL ABG pCO2 (35-45) mmHg ABG pO2 (83-108) mmHg ABG HCO3 (21-25) mmol/L ABG O2 Saturation (94-97) % Potassium 2.5 L* (3.5-5.1) mmol/L Chloride (98-107) mmol/L Carbon Dioxide (22-30) mmol/L BUN (7-17) mg/dL Creatinine (0.52-1.04) mg/dL Glucose (74-99) mg/dL POC Glucose (mg/dL) 147 H 126 H (75-99) mg/dL Calcium (8.4-10.2) mg/dL Phosphorus (2.5-4.5) mg/dL 01/15/17 01/15/17 01/15/17 Range/Units 00:26 05:44 07:32 WBC (3.8-10.6) k/uL RBC (3.80-5.40) m/uL Hgb (11.4-16.0) gm/dL Hct (34.0-46.0) % Neutrophils # (1.3-7.7) k/uL Lymphocytes # (1.0-4.8) k/uL ABG pCO2 30 L (35-45) mmHg ABG pO2 152 H (83-108) mmHg ABG HCO3 19 L (21-25) mmol/L ABG O2 Saturation 99.4 H (94-97) % Potassium (3.5-5.1) mmol/L Chloride (98-107) mmol/L Carbon Dioxide (22-30) mmol/L BUN (7-17) mg/dL Creatinine (0.52-1.04) mg/dL Glucose (74-99) mg/dL POC Glucose (mg/dL) 128 H 144 H (75-99) mg/dL Calcium (8.4-10.2) mg/dL Phosphorus (2.5-4.5) mg/dL 01/15/17 01/15/17 Range/Units 07:50 07:50 WBC 19.7 H (3.8-10.6) k/uL RBC 3.72 L (3.80-5.40) m/uL Hgb 10.4 L (11.4-16.0) gm/dL Hct 32.3 L (34.0-46.0) % Neutrophils # 18.2 H (1.3-7.7) k/uL Lymphocytes # 0.8 L (1.0-4.8) k/uL ABG pCO2 (35-45) mmHg ABG pO2 (83-108) mmHg ABG HCO3 (21-25) mmol/L ABG O2 Saturation (94-97) % Potassium 2.9 L* (3.5-5.1) mmol/L Chloride 116 H (98-107) mmol/L Carbon Dioxide 18 L (22-30) mmol/L BUN 32 H (7-17) mg/dL Creatinine 1.27 H (0.52-1.04) mg/dL Glucose 112 H (74-99) mg/dL POC Glucose (mg/dL) (75-99) mg/dL Calcium 7.9 L (8.4-10.2) mg/dL Phosphorus 1.7 L (2.5-4.5) mg/dL Microbiology - Last 24 Hours (Table) 01/14/17 15:40 Gram Stain - Preliminary Sputum Sputum Culture - Preliminary 01/12/17 12:10 Blood Culture - Preliminary Blood No Growth after 48 hours 01/12/17 21:28 Urine Culture - Final Urine,Catheterized Assessment and Plan (1) Large bowel obstruction Status: Acute Plan: Postop day #2 from exploratory laparotomy and Gardiner's procedure with ureteral repair - Continue ventilation per ICU - Decrease vasopressors as tolerated by patient - Continue IV fluid therapy, bolus as necessary - Continue antibiotic therapy - Continue SURYA care - Continue local wound care - Will begin nutrition with trickle enteral feeding, check residuals - Continue ICU management
--- NOTE | 2017-01-15 11:41 | P.PN ---
Subjective Principal diagnosis: Status post laparotomy with Joanna's procedure, abdominal sepsis. This is an 86-year-old female presented to the ER with 1 day history of abdominal pain. Patient has not been eating well, pain was mostly on the right side of the abdomen, computed tomography scan of the abdomen in another facility several weeks ago was reported as normal. Patient is primarily a patient of Dr. Saldaña, she had no nausea no vomiting, no blood in the stools on presentation, however the patient was poor historian according to the surgeon on the case. Her last colonoscopy was supposedly over 10 years ago. No family history of GI malignancy. She does have history of diverticulitis in the distant past. CT of the abdomen and pelvis was done on 01/12/2017, and was relatively unremarkable. Patient underwent sigmoidoscopy, however there was evidence of sigmoid obstruction and the surgeon could not pass the scope beyond 30 cm. Then the patient underwent exploratory laparotomy, and she was found to have bowel obstruction, she underwent colectomy with colostomy however she sustained left ureteral injury and this was addressed by Dr. Fonseca/urologist on the case. Patient was admitted to the intensive care unit, on mechanical ventilation, chest x-ray is now pending, ABG is pending, antibiotics were addressed, and infectious disease consultation was initiated. Patient is hemodynamically stable, sedated. In no distress at this point. Her primary left ureteral injury was identified and prepared with ureteral ureterostomy. Patient was reevaluated today on 01/14/2017, remains on mechanical ventilation, her ventilator settings are assist control rate of 16, tidal volume is 400, FiO2 is 35%, and PEEP is 5. Lung mechanics seem to be normal including peak airway pressure, and plateau pressures. I: E ratio is 1:2.5. ABG showed a pO2 of 282 pCO2 of 28 pH of 7.38, patient was placed on sodium bicarb drip yesterday for metabolic acidosis which seems to be responding to treatment well. Bicarb today is 16. Renal profile seems to be improving, patient had a creatinine of 1.40 today, it was as high as 2.64 on admission. Chest x-ray showed cardiomegaly, left lower lobe atelectasis, and possibly a small tiny left pleural effusion. Patient continues to have a nasogastric tube in place, no feeding has been started at this point, may have to consider TPN. Patient is on multiple antibiotics, infectious disease consultation is pending, WBC count today is 21.8 hemoglobin is 11.7. Continues to have a SURYA drain in place, the drainage is light, red in color. This morning patient had to be placed on norepinephrine however I have instructed the nurses to give the patient more fluids, and hopefully cut down on the norepinephrine. I also cut down on her propofol dose, advised fluid boluses hoping to improve her blood pressure and her A. fib/RVR. Cardiology was also consulted regarding her atrial fibrillation , patient does have history of chronic A. fib. Reevaluated today on 01/15/2017, patient remains in the ICU on mechanical ventilation, and her ventilator settings are tidal volume of 400, assist control rate of 20, FiO2 35 percent, PEEP is 5. ABG showed a pO2 of 152 pCO2 of 30 and pH of 7.43. Based on this ABG, I recommended stopping her sodium bicarb drip, I cut down her FiO2 to 30%, and considering the patient remains on norepinephrine to maintain adequate blood pressure, I recommended no plans to extubate today, but the patient will be awakened, we'll assess her mental status , and will likely give her fluid boluses before addressing any diuresis. Blood pressure seems to be marginal and again still requiring norepinephrine almost at 20 mcg/m. Her urine output seems to be appropriate. And her colostomy output seems to be excellent. Potassium is at 2.9 being corrected as per protocol. Bicarb is a bit on the low side 18. Patient has noted picture of hyperchloremic metabolic acidosis, non-anion gap. Renal function continues to improve, creatinine is down to 1.27 today. It was much higher on presentation. Nutrition monk, patient may have to be placed on TPN unless the surgeon on the case feels patient could be started on enteral feeding in the next 24 hours. And a nutritional consultation will be initiated. Chest x-ray showed evidence of left lower lobe airspace disease and atelectasis, patient remains on antibiotics for presumptive pneumonia, however I believe the findings are more findings of atelectasis and possibly small pleural effusion than true pneumonia involving the left lower lobe. Propofol was placed on hold, patient was awakened, and she seems very appropriate from the neurological perspective. Followed all instructions, again she is not quite ready for weaning and extubation at this point. And this is mostly because of her hemodynamic instability. Objective - Vital Signs Vital signs: Vital Signs Temp 98.7 F 01/15/17 08:30 Pulse 103 H 01/15/17 11:13 Resp 20 01/15/17 11:00 BP 82/46 01/14/17 23:00 Pulse Ox 98 01/15/17 11:00 Intake & Output 01/14/17 01/15/17 01/15/17 18:59 06:59 18:59 Intake Total 2504.217 3569.700 1719.033 Output Total 1380 1510 540 Balance 2965.011 7262.700 1179.033 Weight 77.4 kg Intake: IV 1174 2246 1577.5 0.9 for pressure 54 66 30 Dextrose 5% in Water 850 600 500 100 ml @ 50 mls/hr IV .Q20H REMY with Sodium Bicarb (1 Meq/ml) 150 ml Rx#: [id number] Piperacillin-Tazobactam 3 37.5 .375 gm In Dextrose/Water 1 50ml.bag @ 12.5 mls/hr IVPB Q8HR [facility] Rx#: [id number] Potassium Chloride 20 meq 100 In Water For Injection 1 100ml.bag @ 50 mls/hr IVPB ONCE ONE Rx#: [id number] Potassium Chloride 20 meq 100 In Water For Injection 1 100ml.bag @ 50 mls/hr IVPB ONCE ONE Rx#: [id number] Potassium Chloride 20 meq 50 300 In Water For Injection 1 100ml.bag @ 50 mls/hr IVPB Q2H [facility] Rx#: [id number] Sodium Chloride 0.9% 1, 150 000 ml @ 100 mls/hr IV . Q10H [facility] Rx#:[id number] Sodium Chloride 0.9% 1, 1000 000 ml @ 999 mls/hr IV . Q1H1M ONE Rx#:[id number] kvo 220 1180 60 metroNIDAZOLE-NS PMX 500 200 100 100 mg In Saline 1 100ml.bag @ 100 mls/hr IVPB Q8H [facility] Rx#:[id number] zosyn 50 Intake, IV Titration 924.963 8324.700 141.533 Amount Norepinephrin 16 mg-0.9% 180.217 217.490 72.705 Ns Pmx 16 mg In 250 ml @ Titrate IV .Q0M [facility] Rx#: [id number] Piperacillin-Tazobactam 3 50 .375 gm In Dextrose/Water 1 50ml.bag @ 12.5 mls/hr IVPB BID@0900,2200 [facility] Rx#:[id number] Propofol 1,000 mg In 100 100.000 106.210 68.828 ml @ Titrate IV .Q0M [facility] Rx#:[id number] Sodium Chloride 0.9% 1, 1000 000 ml @ 999 mls/hr IV . Q1H1M ONE Rx#:[id number] Oral 1000 Output: Gastric Drainage 300 450 Drainage 210 50 100 Right Lower Abdomen 210 50 100 Urine 870 910 440 Stool 100 Other: Voiding Method Indwelling Catheter Indwelling Catheter Indwelling Catheter ABP, PAP, CO, CI - Last Documented Arterial Blood Pressure 84/41 - Exam Physical Exam: Revealed an 86-year-old female on mechanical ventilation, endotracheal tube is intact, orogastric tube is intact. HEENT:[Neck is supple.] [No neck masses.] [No thyromegaly.] [No JVD.] Chest: [Minimal fine crackles at the bases, no rhonchi, no wheezes. Cardiac Exam: [ Irregular irregular rhythm Normal S1 and S2, no S3 gallop, no murmur.] Abdomen: [Postsurgical, soft, incision looks clean, patient has a binder in place, left lower quadrant colostomy bag is noted. SURYA drain was also noted in the right lower quadrant area. Extremities: [No clubbing, no edema, no cyanosis.] Neurological Exam: No gross focal neurologic deficit. Skin: No rashes, no ulcerations. Psychiatric: Mental status exam seems to be appropriate. Mus[place] skeletal: Cannot be addressed patient is sedated. - Labs CBC & Chem 7: 01/15/17 07:50 01/15/17 07:50 Labs: Abnormal Lab Results - Last 24 Hours (Table) 01/14/17 01/14/17 01/14/17 Range/Units 12:40 17:37 20:18 WBC (3.8-10.6) k/uL RBC (3.80-5.40) m/uL Hgb (11.4-16.0) gm/dL Hct (34.0-46.0) % Neutrophils # (1.3-7.7) k/uL Lymphocytes # (1.0-4.8) k/uL ABG pCO2 (35-45) mmHg ABG pO2 (83-108) mmHg ABG HCO3 (21-25) mmol/L ABG O2 Saturation (94-97) % Potassium 2.5 L* (3.5-5.1) mmol/L Chloride (98-107) mmol/L Carbon Dioxide (22-30) mmol/L BUN (7-17) mg/dL Creatinine (0.52-1.04) mg/dL Glucose (74-99) mg/dL POC Glucose (mg/dL) 147 H 126 H (75-99) mg/dL Calcium (8.4-10.2) mg/dL Phosphorus (2.5-4.5) mg/dL 01/15/17 01/15/17 01/15/17 Range/Units 00:26 05:44 07:32 WBC (3.8-10.6) k/uL RBC (3.80-5.40) m/uL Hgb (11.4-16.0) gm/dL Hct (34.0-46.0) % Neutrophils # (1.3-7.7) k/uL Lymphocytes # (1.0-4.8) k/uL ABG pCO2 30 L (35-45) mmHg ABG pO2 152 H (83-108) mmHg ABG HCO3 19 L (21-25) mmol/L ABG O2 Saturation 99.4 H (94-97) % Potassium (3.5-5.1) mmol/L Chloride (98-107) mmol/L Carbon Dioxide (22-30) mmol/L BUN (7-17) mg/dL Creatinine (0.52-1.04) mg/dL Glucose (74-99) mg/dL POC Glucose (mg/dL) 128 H 144 H (75-99) mg/dL Calcium (8.4-10.2) mg/dL Phosphorus (2.5-4.5) mg/dL 01/15/17 01/15/17 Range/Units 07:50 07:50 WBC 19.7 H (3.8-10.6) k/uL RBC 3.72 L (3.80-5.40) m/uL Hgb 10.4 L (11.4-16.0) gm/dL Hct 32.3 L (34.0-46.0) % Neutrophils # 18.2 H (1.3-7.7) k/uL Lymphocytes # 0.8 L (1.0-4.8) k/uL ABG pCO2 (35-45) mmHg ABG pO2 (83-108) mmHg ABG HCO3 (21-25) mmol/L ABG O2 Saturation (94-97) % Potassium 2.9 L* (3.5-5.1) mmol/L Chloride 116 H (98-107) mmol/L Carbon Dioxide 18 L (22-30) mmol/L BUN 32 H (7-17) mg/dL Creatinine 1.27 H (0.52-1.04) mg/dL Glucose 112 H (74-99) mg/dL POC Glucose (mg/dL) (75-99) mg/dL Calcium 7.9 L (8.4-10.2) mg/dL Phosphorus 1.7 L (2.5-4.5) mg/dL Microbiology - Last 24 Hours (Table) 01/14/17 15:40 Gram Stain - Preliminary Sputum Sputum Culture - Preliminary 01/12/17 12:10 Blood Culture - Preliminary Blood No Growth after 48 hours 01/12/17 21:28 Urine Culture - Final Urine,Catheterized Assessment and Plan Plan: Impression: 1 large bowel obstruction, status post colectomy with colostomy and left ureteral injury requiring repair postoperative day #2 2 postoperative respiratory failure, requiring intubation and mechanical ventilation expected considering the surgery involved. 3 history of chronic atrial fibrillation 4 history of benign essential hypertension 5 history of osteoarthritis 6 acute abdominal sepsis is suspected. 7 left lower lobe atelectasis, and small left pleural effusion. doubt pneumonia at this point. Granted, the patient remains on antibiotics for her abdominal sepsis. 8 postoperative hypotension, most likely related to fluid status,/hypovolemic in nature, strongly doubt hypotension secondary to abdominal sepsis at this point. This will likely improve with fluid boluses, and with control of the atrial fibrillation/RVR. Recommendation: Continue present supportive care measures including mechanical ventilation, antibiotics, bronchodilators, GI and DVT prophylaxis, we will address nutritional support and possibly TPN depending on the overall condition in the next 24 hours. Ventilator settings were adjusted, fluid boluses were recommended, CVP line is being monitored, CVP is ranging between 6 and 10. Considering the patient remains hemodynamically unstable, no plans to wean and extubate today, we'll continue to work with titrating her norepinephrine, and will continue to address weaning on a daily basis. Critical care time is 34 minutes. Time with Patient: Greater than 30
[2017-01-15 12:15] LABS: Glucose,Whole Blood 117 mg/dL (75-99)
[2017-01-15] MEDS: METOCLOPRAMIDE 5 MG/ML 2 ML VIAL IVP SCH ×2 (12:16→18:12)
--- NOTE | 2017-01-15 14:01 | PN ---
PROGRESS NOTE Mrs. Grove is an 86-year-old female who presented with bowel obstruction, underwent colectomy and colostomy and had a left ureteral injury and underwent repair with a stent. She has history of chronic atrial fibrillation. She remains intubated and sedated requiring vasopressor. Her urinary output has been stable, but she has received further fluid. There is no evidence of ventricular ectopic activity. Her ventricular response remained fast at times, although overall is running in the 100- 110. She has continued to be on the norepinephrine. In addition to that, she is on digoxin 0.125 mg intravenously daily. Her anticoagulation has been held. She had an echocardiogram yesterday that showed a preserved systolic function with mild tricuspid and mitral regurgitation. PHYSICAL EXAMINATION: Blood pressure running in the 90s to low 100s. Heart rate 100 to one-teens. LUNGS: Clear anteriorly. Patient is sedated. HEART: Irregular irregular S1, S2. No S3. No rub. ABDOMEN: Soft. Positive bowel sounds. Colostomy in place. EXTREMITIES: No significant edema. LAB DATA: Lab data revealed a potassium of 2.9. BUN and creatinine 32 and 1.27, which is improved compared with the admission numbers. Her hemoglobin is 10.4. IMPRESSION: 1. Respiratory failure. Remains on the ventilation. 2. Status post colostomy repair of the left ureter. 3. Chronic atrial fibrillation. 4. Prior history of hypertension. RECOMMENDATION: From the cardiac standpoint, we will continue present therapy. Her ventricular response is relatively controlled. At this time I would not add amiodarone. She is definitely not a candidate for beta marc because of the fact that she continues to be on norepinephrine. Once the norepinephrine is weaned off and her pressure is stable, then a beta marc can be added to her regimen. The issue of anticoagulation will need to be addressed by the surgeon. Once she is cleared by the surgeon, then we will resume anticoagulation for the chronic persistent atrial fibrillation. MMODL / IJN: [id number] /
[2017-01-15 18:11] LABS: Glucose,Whole Blood 107 mg/dL (75-99)
[2017-01-15] MEDS: MEROPENEM 1 GM in SODIUM CHLORIDE 0.9% 100 ML IVPB SCH (18:13)
[2017-01-15] MEDS ORDERED: IV VANCOMYCIN PER PHARMACY 1 EACH MISC MISCELLANE PRN (21:21)
[2017-01-15] MEDS ORDERED: VANCOMYCIN 1,750 MG in SODIUM CHLORIDE 0.9% 250 ML IVPB ONE (22:30)
[2017-01-16 00:09] LABS: Glucose,Whole Blood 113 mg/dL (75-99)
[2017-01-16] MEDS: METOCLOPRAMIDE 5 MG/ML 2 ML VIAL IVP SCH ×5 (00:20→23:52)
[2017-01-16] MEDS: INSULIN LISPRO (humaLOG) 300 UNIT/3 ML VIAL SQ SCH ×4 (00:27→18:40)
[2017-01-16] MEDS: MEROPENEM 1 GM in SODIUM CHLORIDE 0.9% 100 ML IVPB SCH ×4 (00:45→23:52)
[2017-01-16] MEDS: PROPOFOL 1,000 MG/100 ML VIAL IV SCH (01:26)
[2017-01-16] MEDS: HEPARIN SODIUM,PORCINE 5,000 UNIT/ML 1 ML VIAL SQ SCH ×5 (03:23→19:01)
[2017-01-16] MEDS: IPRATROPIUM-ALBUTEROL 3 ML NEB INHALATION SCH ×6 (03:25→23:37)
[2017-01-16 04:22] LABS: Calcium 7.8 mg/dL (8.4-10.2); Magnesium 1.8 mg/dL (1.6-2.3); Phosphorous 2.1 mg/dL (2.5-4.5); Potassium 3.1 mmol/L (3.5-5.1)
[2017-01-16 04:27] LABS: Basophils % (A) 0 %; CH 27.2; CHCM 30.7; Eosinophils % (A) 0 %; HCT 32.3 % (34.0-46.0); HDW 3.59; HGB 10.1 gm/dL (11.4-16.0); Hypochromasia Marked; Luc # (Auto) 0.14; Luc % (Auto) 1; Lymphocytes # (A) 0.6 k/uL (1.0-4.8); Lymphocytes % (A) 5 %; MCH 27.9 pg (25.0-35.0); MCHC 31.3 g/dL (31.0-37.0); MCV 89.1 fL (80.0-100.0); Mean Platelet Volume 7.2; Monocytes # (A) 0.3 k/uL (0-1.0); Monocytes % (A) 3 %; Neutrophils % (A) 91 %; Poikilocytosis Slight; RBC 3.62 m/uL (3.80-5.40); RDW 15.7 % (11.5-15.5); WBC 12.1 k/uL (3.8-10.6); WBC (Perox) 11.87
[2017-01-16] MEDS ORDERED: POTASSIUM CHLORIDE 20 MEQ in WATER FOR INJECTION 1 100ML.BAG IVPB ONE ×2 (04:39→12:00)
[2017-01-16] MEDS ORDERED: Potassium Replacement Protocol 1 EACH MISC MISCELLANE PRN ×2 (04:39→23:05)
[2017-01-16] MEDS: metroNIDAZOLE-NS PMX 500 MG in SALINE 1 100ML.BAG IVPB SCH (04:53)
[2017-01-16] MEDS: SODIUM CHLORIDE 0.9% 1,000 ML IV SCH ×2 (05:38→17:15)
--- NOTE | 2017-01-16 06:22 | PN ---
PROGRESS NOTE DATE OF SERVICE: 01/15/2017 REASON FOR FOLLOWUP: Abdominal sepsis. INTERVAL HISTORY: The patient is afebrile. The patient is still requiring pressor support in the form of Levophed where the patient require about 20 mcg. The patient remains to be sedated and intubated on the vent. FiO2 remains to be stable. PHYSICAL EXAMINATION: On examination, blood pressure has been 110/47 with a pulse of 90, temperature of 98. She is 98% on 30% FiO2. General description is an elderly female lying in bed, in no distress. RESPIRATORY SYSTEM: Unlabored breathing. Clear to auscultation anteriorly. HEART: S1, S2. Regular rate and rhythm. ABDOMEN: Soft, slightly distended. SURYA drain which serous secretion. LABS: Hemoglobin is 10.4, white count, slightly improved 19.7. BUN of 32 with a creatinine 1.27. Blood culture has been negative. DIAGNOSTIC IMPRESSION AND PLAN: Patient with abdominal sepsis in a patient who did have a sigmoid colectomy and diverting colostomy and left ureterostomy with persistent hypotension. Blood culture will be repeated. The patient antibiotic will be switched to meropenem, discontinue Zosyn. Overall prognosis remains to be guarded. Continue supportive care. MMODL / IJN: [id number] / TIMI
[2017-01-16 06:25] LABS: Glucose,Whole Blood 107 mg/dL (75-99)
--- NOTE | 2017-01-16 07:23 | PN ---
PROGRESS NOTE CHIEF COMPLAINT: Re-evaluation. HISTORY OF PRESENT ILLNESS: This is an 86-year-old female who is status post bowel surgery. She had a bowel obstruction and had a colostomy. The patient has hypotension requiring support. She is also on the ventilator, maintaining adequate oxygenation on 30% FiO2 with a PEEP of 5. The patient had ureteric repair and patient has adequate urine output. Temperatures remain stable. The patient does have atrial fibrillation rapid rate on digoxin. 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 Vital signs reveals temperature 98.7, pulse 110, respirations 22, blood pressure 98/45. FiO2 30%. HEENT: Normocephalic, has an ET and NG tube. CHEST: Decreased air flow at the bases. CARDIAC: Irregular, tachycardic. ABDOMEN: Tender, protuberant. EXTREMITIES: Edema. LABORATORY ASSESSMENT: White count is down to 19,700, hemoglobin 10.4, platelets are adequate at 282. Potassium 2.9, CO2 18, BUN 32, creatinine 1.27. Calcium 7.9. Magnesium 1.6. ASSESSMENT: 1. Status post bowel obstruction surgery. 2. Atrial fibrillation, rapid rate. 3. Hypokalemia. 4. Anemia secondary to blood loss. 5. Hypotension, on vasopressors and IV fluids. PLAN: Continue present medical regimen. Patient's condition remains serious and guarded. Prognosis remains guarded. The patient's condition was discussed with the son. Also discussed with the surgeon, Dr. Jay. The patient's condition remains critical at present. Continue present regimen. MMODL / IJN: [id number] /
[2017-01-16 07:28] LABS: ABG Base Excess -8.7 mmol/L; ABG HCO3 15 mmol/L (21-25); ABG PCO2 27 mmHg (35-45); ABG PH 7.38 (7.35-7.45); ABG PO2 137 mmHg (83-108); ABG TCO2 16 mmol/L (19-24)
[2017-01-16] MEDS ORDERED: POTASSIUM PHOSPHATE 10 MMOL in SODIUM CHLORIDE 0.9% 250 ML IV ONE (08:23)
[2017-01-16] MEDS ORDERED: Phosphorus Replacement Protoco 1 EACH MISC MISCELLANE PRN (08:23)
--- NOTE | 2017-01-16 08:39 | XR ---
EXAMINATION TYPE: XR chest 1V portable DATE OF EXAM: 01/16/2017 HISTORY: Shortness of breath. COMPARISON: 01/15/17 TECHNIQUE: Single view of the chest is submitted. FINDINGS: Endotracheal tube, NG tube and central venous line are appropriately placed. Small bilateral pleural effusions persist. Demonstrated are scattered senescent parenchymal change. There is no evidence for focal infiltrate. The heart is stable. Hilar and mediastinal structures are within normal limits. Degenerative changes are seen of the dorsal spine. IMPRESSION: 1. Endotracheal tube, NG tube and central venous line are appropriately placed. Small bilateral pleu ral effusions persist.
[2017-01-16] MEDS: MAGNESIUM SULFATE-D5W PMX 1 GM in DEXTROSE/WATER 1 100ML.BAG IVPB SCH ×2 (09:14→10:23)
--- NOTE | 2017-01-16 09:38 | PN ---
PROGRESS NOTE Mrs. Grove is an 86-year-old female who presented with bowel obstruction, underwent surgical intervention with Joanna procedure and repair of left ureter. She remains sedated, intubated, on norepinephrine. The dose of her norepinephrine is slower and her ventricular response of atrial fibrillation is under better control. She continued to have good urine output and she has responded appropriately when her sedation was less. There is no evidence of ventricular tachyarrhythmia or significant bradycardia. She has continued to be on digoxin 0.125 mg daily intravenously to control her ventricular response. PHYSICAL EXAMINATION: Her blood pressure is 115/50 with the heart rate in 90s. LUNGS: Clear anteriorly. HEART: Irregular irregular. S1, S2. No S3 with a systolic murmur. No rub. ABDOMEN: Soft. Positive bowel sounds. Colostomy noted. EXTREMITIES: No edema. LAB DATA: Lab data revealed a pH 7.38, pCO2 of 27, PO2 of 137. Her potassium 3.1. BUN and creatinine 23 and 1.1, which continues to improve compared with her admission labs. Her magnesium is 1.8. Her hemoglobin is 10.1 with white blood cell of 12.1. IMPRESSION: 1. Status post bowel obstruction with colostomy and Joanna's procedure. 2. Atrial fibrillation, chronic, rate controlled. 3. Hypotension, improved. 4. Respiratory failure, remains intubated. 5. Renal failure, improving. 6. Hypokalemia. RECOMMENDATION: From the cardiac standpoint, we will continue current therapy. The issue of anticoagulation will need to be addressed once it is agreeable with this surgeon then I will restart anticoagulation. Feeding will be started today. Once she is off the norepinephrine and her pressure is stable, she may be a candidate to start a low-dose beta marc. MMODL / IJN: [id number] /
[2017-01-16] MEDS: NOREPINEPHRIN 16 MG-0.9%NS PMX 16 MG/250 ML ML IV SCH (09:47)
[2017-01-16] MEDS: CHLORHEXIDINE GLUCONATE 15 ML CUP MUCOUS MEM SCH (09:54)
[2017-01-16] MEDS: PANTOPRAZOLE 40 MG/10 ML VIAL IV SCH (09:55)
--- NOTE | 2017-01-16 10:05 | P.PN ---
Subjective Progress note dated 01/16/2017 This is a 86-year-old female who remains on the ventilator. She was admitted on January 12 with small bowel obstruction and the subsequent day on January 13, she had an exploratory laparotomy and Gardiner's procedure colostomy and because of the left ureter injury she had that repaired. 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 Pathology on that is pending. Her surgeon was Dr. Woody and her primary doctor's Dr. Saldaña. The patient remains on the ventilator. She is on the assist control mode rate of 2009 of I' m 400 FiO2 30% and a PEEP of 5. Blood gases show a PaO2 of 137 a PaCO2 of 26 and a pH of 7.38. We then returned the FiO2 down to 25% and drop the time of I' m down to 350. In addition, the patient's on a saline IV at 100 mL an hour norepinephrine at 10 mcg/m propofol at 10 mics per kilogram per minute. There are no tube feeds as yet. The patient is starting to wake up. We will place her on PSV of 5 and CPAP of 5 and see if we can't move towards extubation. Objective - Vital Signs Vital signs: Vital Signs Temp 98.0 F 01/16/17 08:00 Pulse 103 H 01/16/17 09:00 Resp 20 01/16/17 03:10 BP 88/50 01/15/17 23:00 Pulse Ox 99 01/16/17 09:00 Intake & Output 01/15/17 01/16/17 01/16/17 18:59 06:59 18:59 Intake Total 4399.607 1415.809 380.255 Output Total 1180 1056 750 Balance 3219.607 359.809 -369.745 Weight 77.4 kg Intake: IV 4044.5 1160 212 0.9 for pressure 72 60 12 Dextrose 5% in Water 850 100 ml @ 50 mls/hr IV .Q20H [facility] with Sodium Bicarb (1 Meq/ml) 150 ml Rx#: [id number] Magnesium Sulfate-D5w Pmx 100 1 gm In Dextrose/Water 1 100ml.bag @ 100 mls/hr IVPB ONCE ONE Rx#: [id number] Magnesium Sulfate-D5w Pmx 200 1 gm In Dextrose/Water 1 100ml.bag @ 100 mls/hr IVPB Q1H [facility] Rx#: [id number] Magnesium Sulfate-D5w Pmx 200 100 1 gm In Dextrose/Water 1 100ml.bag @ 100 mls/hr IVPB Q1H [facility] Rx#: [id number] Meropenem 1 gm In Sodium 200 Chloride 0.9% 100 ml @ 200 mls/hr IVPB Q8HR [facility] Rx#:[id number] Piperacillin-Tazobactam 3 62.5 .375 gm In Dextrose/Water 1 50ml.bag @ 12.5 mls/hr IVPB Q8HR [facility] Rx#: [id number] Potassium Chloride 20 meq 200 100 In Water For Injection 1 100ml.bag @ 50 mls/hr IVPB ONCE ONE Rx#: [id number] Sodium Chloride 0.9% 1, 1650 1000 100 000 ml @ 100 mls/hr IV . Q10H [facility] Rx#:[id number] Sodium Chloride 0.9% 1, 1000 000 ml @ 999 mls/hr IV . Q1H1M ONE Rx#:[id number] kvo 60 metroNIDAZOLE-NS PMX 500 200 mg In Saline 1 100ml.bag @ 100 mls/hr IVPB Q8H [facility] Rx#:[id number] Intake, IV Titration 355.107 255.809 168.255 Amount Norepinephrin 16 mg-0.9% 186.279 159.968 80.97 Ns Pmx 16 mg In 250 ml @ Titrate IV .Q0M [facility] Rx#: [id number] Propofol 1,000 mg In 100 168.828 95.841 87.285 ml @ Titrate IV .Q0M [facility] Rx#:[id number] Output: Drainage 100 560 380 NG tube 250 50 Right Lower Abdomen 100 310 330 Urine 880 496 120 Stool 200 250 Other: Voiding Method Indwelling Catheter Indwelling Catheter ABP, PAP, CO, CI - Last Documented Arterial Blood Pressure 114/48 - Exam No acute distress, still sleepy from the sedation. Orally placed endotracheal tube and NG tube are noted. HEENT examinations unremarkable. Mucous membranes are moist. Neck supple. Full range of motion. No adenopathy or thyromegaly. Cardiovascular examination reveals regular rhythm rate. S1-S2 normal. No murmur. Lungs reveal relatively clear breath sounds. A few scattered rhonchi. No wheezes. No crackles. Abdomen soft bowel sounds are not heard. Extremities are intact. No cyanosis clubbing or edema. Skin without rash. - Labs CBC & Chem 7: 01/16/17 04:00 01/16/17 09:06 Labs: Abnormal Lab Results - Last 24 Hours (Table) 01/15/17 01/15/17 01/15/17 Range/Units 12:10 13:00 18:09 WBC (3.8-10.6) k/uL RBC (3.80-5.40) m/uL Hgb (11.4-16.0) gm/dL Hct (34.0-46.0) % RDW (11.5-15.5) % Neutrophils # (1.3-7.7) k/uL Lymphocytes # (1.0-4.8) k/uL ABG pCO2 (35-45) mmHg ABG pO2 (83-108) mmHg ABG HCO3 (21-25) mmol/L ABG Total CO2 (19-24) mmol/L ABG O2 Saturation (94-97) % Potassium 3.1 L (3.5-5.1) mmol/L Chloride (98-107) mmol/L Carbon Dioxide (22-30) mmol/L BUN (7-17) mg/dL Creatinine (0.52-1.04) mg/dL Glucose (74-99) mg/dL POC Glucose (mg/dL) 117 H 107 H (75-99) mg/dL Calcium (8.4-10.2) mg/dL Phosphorus (2.5-4.5) mg/dL 01/15/17 01/16/17 01/16/17 Range/Units 18:28 00:07 04:00 WBC 12.1 H (3.8-10.6) k/uL RBC 3.62 L (3.80-5.40) m/uL Hgb 10.1 L (11.4-16.0) gm/dL Hct 32.3 L (34.0-46.0) % RDW 15.7 H (11.5-15.5) % Neutrophils # 11.0 H (1.3-7.7) k/uL Lymphocytes # 0.6 L (1.0-4.8) k/uL ABG pCO2 (35-45) mmHg ABG pO2 (83-108) mmHg ABG HCO3 (21-25) mmol/L ABG Total CO2 (19-24) mmol/L ABG O2 Saturation (94-97) % Potassium 3.2 L (3.5-5.1) mmol/L Chloride (98-107) mmol/L Carbon Dioxide (22-30) mmol/L BUN (7-17) mg/dL Creatinine (0.52-1.04) mg/dL Glucose (74-99) mg/dL POC Glucose (mg/dL) 113 H (75-99) mg/dL Calcium (8.4-10.2) mg/dL Phosphorus (2.5-4.5) mg/dL 01/16/17 01/16/17 01/16/17 Range/Units 04:00 06:23 07:16 WBC (3.8-10.6) k/uL RBC (3.80-5.40) m/uL Hgb (11.4-16.0) gm/dL Hct (34.0-46.0) % RDW (11.5-15.5) % Neutrophils # (1.3-7.7) k/uL Lymphocytes # (1.0-4.8) k/uL ABG pCO2 27 L (35-45) mmHg ABG pO2 137 H (83-108) mmHg ABG HCO3 15 L (21-25) mmol/L ABG Total CO2 16 L (19-24) mmol/L ABG O2 Saturation 99.0 H (94-97) % Potassium 3.1 L (3.5-5.1) mmol/L Chloride 118 H (98-107) mmol/L Carbon Dioxide 16 L (22-30) mmol/L BUN 23 H (7-17) mg/dL Creatinine 1.11 H (0.52-1.04) mg/dL Glucose 113 H (74-99) mg/dL POC Glucose (mg/dL) 107 H (75-99) mg/dL Calcium 7.8 L (8.4-10.2) mg/dL Phosphorus 2.1 L (2.5-4.5) mg/dL 01/16/17 Range/Units 09:06 WBC (3.8-10.6) k/uL RBC (3.80-5.40) m/uL Hgb (11.4-16.0) gm/dL Hct (34.0-46.0) % RDW (11.5-15.5) % Neutrophils # (1.3-7.7) k/uL Lymphocytes # (1.0-4.8) k/uL ABG pCO2 (35-45) mmHg ABG pO2 (83-108) mmHg ABG HCO3 (21-25) mmol/L ABG Total CO2 (19-24) mmol/L ABG O2 Saturation (94-97) % Potassium 3.3 L (3.5-5.1) mmol/L Chloride (98-107) mmol/L Carbon Dioxide (22-30) mmol/L BUN (7-17) mg/dL Creatinine (0.52-1.04) mg/dL Glucose (74-99) mg/dL POC Glucose (mg/dL) (75-99) mg/dL Calcium (8.4-10.2) mg/dL Phosphorus (2.5-4.5) mg/dL Microbiology - Last 24 Hours (Table) 01/12/17 12:10 Blood Culture - Preliminary Blood No Growth after 72 hours 01/14/17 15:40 Gram Stain - Preliminary Sputum Sputum Culture - Preliminary Assessment and Plan (1) Hypertension Status: Acute (2) Postoperative respiratory failure Status: Acute (3) Atrial fibrillation Status: Acute (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 We'll allow her to wake up. The propofol has been discontinued. Blood pressure stable. We'll see if we can 't work towards weaning and extubation. Prognosis is guarded. I did speak to the patient's daughter. No additional recommendations are made. Time with Patient: Greater than 30
[2017-01-16] MEDS: DIGOXIN 250 MCG/ML 2 ML AMP IVP SCH (10:16)
[2017-01-16 12:37] LABS: Glucose,Whole Blood 105 mg/dL (75-99)
[2017-01-16 13:47] LABS: ABG Base Excess -8.6 mmol/L; ABG HCO3 15 mmol/L (21-25); ABG PCO2 24 mmHg (35-45); ABG PH 7.42 (7.35-7.45); ABG PO2 109 mmHg (83-108); ABG TCO2 16 mmol/L (19-24)
--- NOTE | 2017-01-16 17:07 | P.PN ---
Subjective Principal diagnosis: Large bowel obstruction, status post colon resection with colostomy The patient is seen on rounds. She has been extubated. She is able to maintain her O2 saturations appropriately. She is alert. She is confused. Denies any pain or shortness of breath. Her ostomy is working well. Objective - Vital Signs Vital signs: Vital Signs Temp 99.5 F 01/16/17 16:00 Pulse 96 01/16/17 16:07 Resp 21 01/16/17 16:00 BP 88/50 01/15/17 23:00 Pulse Ox 100 01/16/17 16:00 Intake & Output 01/15/17 01/16/17 01/16/17 18:59 06:59 18:59 Intake Total 4399.607 5862.302 6898.005 Output Total 1180 1056 1770 Balance 3219.607 359.809 -127.995 Weight 77.4 kg Intake: IV 4044.5 1160 1079 0.9 for pressure 72 60 54 Dextrose 5% in Water 850 100 ml @ 50 mls/hr IV .Q20H [facility] with Sodium Bicarb (1 Meq/ml) 150 ml Rx#: [id number] Magnesium Sulfate-D5w Pmx 100 1 gm In Dextrose/Water 1 100ml.bag @ 100 mls/hr IVPB ONCE ONE Rx#: [id number] Magnesium Sulfate-D5w Pmx 200 1 gm In Dextrose/Water 1 100ml.bag @ 100 mls/hr IVPB Q1H [facility] Rx#: [id number] Magnesium Sulfate-D5w Pmx 200 200 1 gm In Dextrose/Water 1 100ml.bag @ 100 mls/hr IVPB Q1H [facility] Rx#: [id number] Meropenem 1 gm In Sodium 200 100 Chloride 0.9% 100 ml @ 200 mls/hr IVPB Q8HR [facility] Rx#:[id number] Piperacillin-Tazobactam 3 62.5 .375 gm In Dextrose/Water 1 50ml.bag @ 12.5 mls/hr IVPB Q8HR [facility] Rx#: [id number] Potassium Chloride 20 meq 200 100 In Water For Injection 1 100ml.bag @ 50 mls/hr IVPB ONCE ONE Rx#: [id number] Sodium Chloride 0.9% 1, 1650 1000 625 000 ml @ 100 mls/hr IV . Q10H [facility] Rx#:[id number] Sodium Chloride 0.9% 1, 1000 000 ml @ 999 mls/hr IV . Q1H1M [facility] Rx#:[id number] kvo 60 metroNIDAZOLE-NS PMX 500 200 100 mg In Saline 1 100ml.bag @ 100 mls/hr IVPB Q8H [facility] Rx#:[id number] Intake, IV Titration 355.107 255.809 533.005 Amount Norepinephrin 16 mg-0.9% 186.279 159.968 95.72 Ns Pmx 16 mg In 250 ml @ Titrate IV .Q0M [facility] Rx#: [id number] Potassium Chloride 20 meq 100 In Water For Injection 1 100ml.bag @ 50 mls/hr IVPB ONCE ONE Rx#: [id number] Potassium Phosphate 10 250 mmol In Sodium Chloride 0 .9% 250 ml @ 125 mls/hr IV ONCE ONE Rx#:[id number] Propofol 1,000 mg In 100 168.828 95.841 87.285 ml @ Titrate IV .Q0M [facility] Rx#:[id number] Tube Feeding 30 Output: Drainage 100 560 710 NG tube 250 100 Right Lower Abdomen 100 310 610 Urine 880 496 510 Stool 200 550 Other: Voiding Method Indwelling Catheter Indwelling Catheter ABP, PAP, CO, CI - Last Documented Arterial Blood Pressure 115/43 - Constitutional General appearance: Present: cooperative, no acute distress - Respiratory Respiratory: bilateral: CTA, diminished (Minimally at the bases) - Cardiovascular Rhythm: regular - Gastrointestinal General gastrointestinal: Present: decreased bowel sounds, soft (Much less distended than last week.) Localized gastrointestinal: surgical scar: diffuse (Dressings are intact clean and dry. They were changed this morning. Ostomy is pink and viable. SURYA is serosanguineous.) - Genitourinary Genitourinary Comment(s): Martines catheter has a tinge of methylene blue still present. - Labs CBC & Chem 7: 01/16/17 04:00 01/16/17 16:20 Labs: Abnormal Lab Results - Last 24 Hours (Table) 01/15/17 01/15/17 01/16/17 Range/Units 18:09 18:28 00:07 WBC (3.8-10.6) k/uL RBC (3.80-5.40) m/uL Hgb (11.4-16.0) gm/dL Hct (34.0-46.0) % RDW (11.5-15.5) % Neutrophils # (1.3-7.7) k/uL Lymphocytes # (1.0-4.8) k/uL ABG pCO2 (35-45) mmHg ABG pO2 (83-108) mmHg ABG HCO3 (21-25) mmol/L ABG Total CO2 (19-24) mmol/L ABG O2 Saturation (94-97) % Potassium 3.2 L (3.5-5.1) mmol/L Chloride (98-107) mmol/L Carbon Dioxide (22-30) mmol/L BUN (7-17) mg/dL Creatinine (0.52-1.04) mg/dL Glucose (74-99) mg/dL POC Glucose (mg/dL) 107 H 113 H (75-99) mg/dL Calcium (8.4-10.2) mg/dL Phosphorus (2.5-4.5) mg/dL 01/16/17 01/16/17 01/16/17 Range/Units 04:00 04:00 06:23 WBC 12.1 H (3.8-10.6) k/uL RBC 3.62 L (3.80-5.40) m/uL Hgb 10.1 L (11.4-16.0) gm/dL Hct 32.3 L (34.0-46.0) % RDW 15.7 H (11.5-15.5) % Neutrophils # 11.0 H (1.3-7.7) k/uL Lymphocytes # 0.6 L (1.0-4.8) k/uL ABG pCO2 (35-45) mmHg ABG pO2 (83-108) mmHg ABG HCO3 (21-25) mmol/L ABG Total CO2 (19-24) mmol/L ABG O2 Saturation (94-97) % Potassium 3.1 L (3.5-5.1) mmol/L Chloride 118 H (98-107) mmol/L Carbon Dioxide 16 L (22-30) mmol/L BUN 23 H (7-17) mg/dL Creatinine 1.11 H (0.52-1.04) mg/dL Glucose 113 H (74-99) mg/dL POC Glucose (mg/dL) 107 H (75-99) mg/dL Calcium 7.8 L (8.4-10.2) mg/dL Phosphorus 2.1 L (2.5-4.5) mg/dL 01/16/17 01/16/17 01/16/17 Range/Units 07:16 09:06 10:23 WBC (3.8-10.6) k/uL RBC (3.80-5.40) m/uL Hgb (11.4-16.0) gm/dL Hct (34.0-46.0) % RDW (11.5-15.5) % Neutrophils # (1.3-7.7) k/uL Lymphocytes # (1.0-4.8) k/uL ABG pCO2 27 L 24 L (35-45) mmHg ABG pO2 137 H 109 H (83-108) mmHg ABG HCO3 15 L 15 L (21-25) mmol/L ABG Total CO2 16 L 16 L (19-24) mmol/L ABG O2 Saturation 99.0 H 99.0 H (94-97) % Potassium 3.3 L (3.5-5.1) mmol/L Chloride (98-107) mmol/L Carbon Dioxide (22-30) mmol/L BUN (7-17) mg/dL Creatinine (0.52-1.04) mg/dL Glucose (74-99) mg/dL POC Glucose (mg/dL) (75-99) mg/dL Calcium (8.4-10.2) mg/dL Phosphorus (2.5-4.5) mg/dL 01/16/17 01/16/17 Range/Units 12:19 16:20 WBC (3.8-10.6) k/uL RBC (3.80-5.40) m/uL Hgb (11.4-16.0) gm/dL Hct (34.0-46.0) % RDW (11.5-15.5) % Neutrophils # (1.3-7.7) k/uL Lymphocytes # (1.0-4.8) k/uL ABG pCO2 (35-45) mmHg ABG pO2 (83-108) mmHg ABG HCO3 (21-25) mmol/L ABG Total CO2 (19-24) mmol/L ABG O2 Saturation (94-97) % Potassium 3.3 L (3.5-5.1) mmol/L Chloride (98-107) mmol/L Carbon Dioxide (22-30) mmol/L BUN (7-17) mg/dL Creatinine (0.52-1.04) mg/dL Glucose (74-99) mg/dL POC Glucose (mg/dL) 105 H (75-99) mg/dL Calcium (8.4-10.2) mg/dL Phosphorus (2.5-4.5) mg/dL Microbiology - Last 24 Hours (Table) 01/12/17 12:10 Blood Culture - Preliminary Blood No Growth after 96 hours 01/14/17 15:40 Gram Stain - Preliminary Sputum Sputum Culture - Preliminary Assessment and Plan (1) Large bowel obstruction Status: Acute (2) Atrial fibrillation Status: Acute (3) Hypokalemia Status: Acute (4) Hypomagnesemia syndrome Status: Acute (5) Hypotensive episode Status: Acute (6) Renal failure syndrome Status: Acute (7) Diverticular disease of colon Status: Acute (8) Dehydration Status: Acute Plan: She is slowly improving. The vasopressors are being weaned. The ostomy is working well. She has hypoactive bowel sounds. Tube feedings are started at 10 mL's per hour. Continue supportive care. We'll slowly advance the tube feedings. May possibly be able to start some oral fluids tomorrow.
[2017-01-16] MEDS ORDERED: POTASSIUM CHLORIDE 20 MEQ in WATER FOR INJECTION 1 100ML.BAG IVPB STA (17:11)
[2017-01-16 18:02] LABS: Glucose,Whole Blood 103 mg/dL (75-99)
--- NOTE | 2017-01-16 18:17 | PN ---
PROGRESS NOTE ATTENDING PHYSICIAN: Dr. Woody CONSULTING PHYSICIAN: Dr. Kamran Saldaañ. CHIEF COMPLAINT: Re-evaluation. HISTORY OF PRESENT ILLNESS: This is an 86-year-old female status post abdominal surgery for bowel obstruction. The patient had a colostomy. She also had a left ureteric repair. The patient has been on the ventilator, actually ventilator settings are on minimal supportive. She has a chest x-ray with some infiltrate at the left base, but no significant evidence of pneumonia. The patient has been sedated. When sedation is withdrawn, the patient does seem to respond. The patient has some NG tube feedings has been started. Continues to have significant loose stooling. The patient has atrial fibrillation, rate today is better. This is a history of chronic atrial fibrillation. The patient is on triple antibiotic per ID, which includes vancomycin, Flagyl and Merrem. REVIEW OF SYSTEMS: Review of systems otherwise not obtainable from the patient. The patient's urine output is good. PHYSICAL EXAMINATION: Elderly female at present on the ventilator. Vital signs are temperature 98 axillary, pulse 93, respirations 20, blood pressure 114/49, pulse ox of 100% on 30% FiO2 on the ventilator. LABORATORY DATA: Chest x-ray reveals some left basilar infiltrate. Blood gases are pH 7.38, pCO2 27, PO2 of 137, FiO2 30%. Potassium 3.3, glucose is 105. CBC had a hemoglobin 10.1, white count 12.1, which is improved. Sodium 143, potassium 3.1, chloride 118, CO2 content 16, anion gap 9, BUN 23, creatinine 1.11, phosphorus 2.1, magnesium 1.8. was negative. ASSESSMENT: 1. Status post abdominal surgery for bowel obstruction. 2. Acute on chronic renal failure, improved. 3. Respiratory ventilator support. 4. Atrial fibrillation, rapid ventricular rate. 5. Anemia. 6. Decreased nutritional status. PLAN: Continue present medical regimen. Patient should be able to be weaned off the ventilator today. Hopefully increasing intake. The patient still needs some support for blood pressure. Expect the patient's status to continue to improve. Prognosis still remains serious. MMODL / IJN: [id number] /
[2017-01-16] MEDS ORDERED: VANCOMYCIN 1,500 MG in SODIUM CHLORIDE 0.9% 250 ML IVPB SCH (21:00)
[2017-01-16] MEDS: POTASSIUM CHLORIDE ORAL LIQUID 40 MEQ/30 ML CUP NG-TUBE SCH (23:53)
[2017-01-16 23:54] LABS: Glucose,Whole Blood 106 mg/dL (75-99)
[2017-01-17] MEDS: SODIUM CHLORIDE 0.9% 1,000 ML IV SCH ×2 (01:18→10:00)
[2017-01-17] MEDS: INSULIN LISPRO (humaLOG) 300 UNIT/3 ML VIAL SQ SCH ×5 (01:18→23:47)
[2017-01-17] MEDS: POTASSIUM CHLORIDE ORAL LIQUID 40 MEQ/30 ML CUP NG-TUBE SCH (01:21)
[2017-01-17] MEDS: IPRATROPIUM-ALBUTEROL 3 ML NEB INHALATION SCH ×6 (03:30→23:24)
[2017-01-17 04:27] LABS: Basophils % (A) 0 %; CH 26.8; CHCM 30.3; Eosinophils # (A) 0.1 k/uL (0-0.7); Eosinophils % (A) 1 %; HCT 28.1 % (34.0-46.0); HDW 3.38; Hypochromasia Marked; Luc # (Auto) 0.21; Luc % (Auto) 3; Lymphocytes # (A) 0.7 k/uL (1.0-4.8); Lymphocytes % (A) 8 %; MCH 28.4 pg (25.0-35.0); MCV 88.8 fL (80.0-100.0); Mean Platelet Volume 6.8; Monocytes # (A) 0.3 k/uL (0-1.0); Monocytes % (A) 3 %; Neutrophils % (A) 85 %; RBC 3.17 m/uL (3.80-5.40); RDW 15.4 % (11.5-15.5); WBC 8.2 k/uL (3.8-10.6); WBC (Perox) 8.58
[2017-01-17 04:28] LABS: Anion Gap 6 mmol/L; Blood Urea Nitrogen 19 mg/dL (7-17); Calcium 7.8 mg/dL (8.4-10.2); Carbon Dioxide 16 mmol/L (22-30); Glucose 96 mg/dL (74-99); Magnesium 1.8 mg/dL (1.6-2.3); Non-African American GFR(MDRD) 59 (>60 ml/min/1.73 sqM); Phosphorous 1.6 mg/dL (2.5-4.5); Potassium 3.6 mmol/L (3.5-5.1); Sodium 142 mmol/L (137-145)
[2017-01-17 04:53] LABS: Chloride 120 mmol/L (98-107)
[2017-01-17] MEDS ORDERED: Phosphorus Replacement Protoco 1 EACH MISC MISCELLANE PRN (04:57)
[2017-01-17] MEDS ORDERED: Potassium Replacement Protocol 1 EACH MISC MISCELLANE PRN (04:59)
[2017-01-17] MEDS: HEPARIN SODIUM,PORCINE 5,000 UNIT/ML 1 ML VIAL SQ SCH ×3 (05:01→19:20)
[2017-01-17] MEDS: MAGNESIUM SULFATE-D5W PMX 1 GM in DEXTROSE/WATER 1 100ML.BAG IVPB SCH ×2 (05:39→09:59)
[2017-01-17] MEDS: POTASSIUM PHOSPHATE 10 MMOL in SODIUM CHLORIDE 0.9% 250 ML IV SCH ×2 (05:49→09:59)
--- NOTE | 2017-01-17 05:59 | PN ---
PROGRESS NOTE DATE OF SERVICE: 01/16/2017. REASON FOR FOLLOW UP: Abdominal abscess. INTERVAL HISTORY: The patient is afebrile. She is hemodynamically stable, off the pressure support. The patient was extubated this morning. Post extubation, the patient was seen. She was slightly lethargic but did answer some simple questions. No nausea, vomiting, abdominal pain, or chest pain. EXAMINATION: Blood pressure 116/49 with a pulse of 92, temperature of 98.6. She is 99% 2 L nasal cannula. General description is an elderly female lying in bed in no distress. RESPIRATORY SYSTEM: Unlabored breathing. Clear to auscultation anteriorly. HEART: S1, S2. Regular rate and rhythm. ABDOMEN: Soft, minimal tenderness. LABS: Hemoglobin is 10.1, white count of 12.1, BUN of 23, creatinine 1.11. Culture so far negative. DIAGNOSTIC IMPRESSION AND PLAN: Patient with abdominal sepsis in patient who is status post sigmoid colectomy with diverting colostomy and left ureterostomy responding to current broad spectrum antibiotic in the form of meropenem and Vanco. In view of the not a very good clinical response to initial antibiotic therapy of Zosyn and Levaquin, the patient monitored closely. Continue supportive care. MMODL / IJN: [id number] / MTDD
[2017-01-17] MEDS ORDERED: POTASSIUM CHLORIDE ORAL LIQUID 40 MEQ/30 ML CUP NG-TUBE SCH (06:00)
[2017-01-17 07:05] LABS: Glucose,Whole Blood 91 mg/dL (75-99)
--- NOTE | 2017-01-17 07:50 | P.PN ---
Subjective Progress note dated 01/16/2017 This is a 86-year-old female who remains on the ventilator. She was admitted on January 12 with small bowel obstruction and the subsequent day on January 13, she had an exploratory laparotomy and Gardiner's procedure colostomy and because of the left ureter injury she had that repaired. 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 Pathology on that is pending. Her surgeon was Dr. Woody and her primary doctor's Dr. Saldaña. The patient remains on the ventilator. She is on the assist control mode rate of 2009 of I' m 400 FiO2 30% and a PEEP of 5. Blood gases show a PaO2 of 137 a PaCO2 of 26 and a pH of 7.38. We then returned the FiO2 down to 25% and drop the time of I' m down to 350. In addition, the patient's on a saline IV at 100 mL an hour norepinephrine at 10 mcg/m propofol at 10 mics per kilogram per minute. There are no tube feeds as yet. The patient is starting to wake up. We will place her on PSV of 5 and CPAP of 5 and see if we can't move towards extubation. Progress note dated 01/17/2017 86-year-old female who was extubated from the ventilator yesterday. She was admitted on January 12 with a small bowel obstruction and on the subsequent day, had exploratory laparotomy and Gardiner's procedure with colostomy. She also sustained a left ureter injury at that time which was repaired. 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 Pathology as of yesterday was pending. Her surgeon is Dr. Woody. Her primary physician is Dr. Saldaña. Anyway, since extubation, she been somewhat lethargic. The patient was on a small dose of norepinephrine at 1 mcg/m. She is getting tube feeds with vital 20 with a goal of 30 mL an hour and she is also nasal O2 at 2 L and an IV appointment for 5 at 100 mL an hour. She is still a full code. We need to have that discussion with the family. I think her overall prognosis is poor and should she end up back on the ventilator, it's very likely she may not come off. I will talk to the daughter today when I see her. Objective - Vital Signs Vital signs: Vital Signs Temp 98.3 F 01/17/17 04:00 Pulse 84 01/17/17 07:18 Resp 21 01/17/17 07:00 BP 88/50 01/15/17 23:00 Pulse Ox 84 L 01/17/17 07:00 Intake & Output 01/16/17 01/17/17 01/17/17 18:59 06:59 18:59 Intake Total 2125.005 1297.969 106 Output Total 2260 1853 50 Balance -134.995 -555.031 56 Weight 77.4 kg 77.4 kg Intake: IV 1422 1166 106 0.9 for pressure 72 66 6 Magnesium Sulfate-D5w Pmx 200 1 gm In Dextrose/Water 1 100ml.bag @ 100 mls/hr IVPB Q1H [facility] Rx#: [id number] Meropenem 1 gm In Sodium 200 Chloride 0.9% 100 ml @ 200 mls/hr IVPB Q8HR [facility] Rx#:[id number] Sodium Chloride 0.9% 1, 850 1100 100 000 ml @ 100 mls/hr IV . Q10H [facility] Rx#:[id number] metroNIDAZOLE-NS PMX 500 100 mg In Saline 1 100ml.bag @ 100 mls/hr IVPB Q8H [facility] Rx#:[id number] Intake, IV Titration 633.005 91.969 Amount Norepinephrin 16 mg-0.9% 95.72 91.969 Ns Pmx 16 mg In 250 ml @ Titrate IV .Q0M [facility] Rx#: [id number] Potassium Chloride 20 meq 100 In Water For Injection 1 100ml.bag @ 50 mls/hr IVPB ONCE ONE Rx#: [id number] Potassium Chloride 20 meq 100 In Water For Injection 1 100ml.bag @ 50 mls/hr IVPB ONCE STA Rx#: [id number] Potassium Phosphate 10 250 mmol In Sodium Chloride 0 .9% 250 ml @ 125 mls/hr IV ONCE ONE Rx#:[id number] Propofol 1,000 mg In 100 87.285 ml @ Titrate IV .Q0M [facility] Rx#:[id number] Tube Feeding 70 40 Output: Drainage 855 970 NG tube 100 300 Right Lower Abdomen 755 670 Urine 655 683 50 Stool 750 200 Other: Voiding Method Indwelling Catheter ABP, PAP, CO, CI - Last Documented Arterial Blood Pressure 110/45 - Exam No acute distress, she seems a little lethargic and sleepy today. HEENT examinations unremarkable. Mucous membranes are moist. Neck supple. Full range of motion. No adenopathy or thyromegaly. Cardiovascular examination reveals regular rhythm rate. S1-S2 normal. No murmur. Lungs reveal relatively clear breath sounds. A few scattered rhonchi. No wheezes. No crackles. Abdomen soft bowel sounds are not heard. Extremities are intact. No cyanosis clubbing or edema. Skin without rash. Neurologic examination is difficult to perform. - Labs CBC & Chem 7: 01/17/17 04:15 01/17/17 04:15 Labs: Abnormal Lab Results - Last 24 Hours (Table) 01/16/17 01/16/17 01/16/17 Range/Units 09:06 10:23 12:19 RBC (3.80-5.40) m/uL Hgb (11.4-16.0) gm/dL Hct (34.0-46.0) % Lymphocytes # (1.0-4.8) k/uL ABG pCO2 24 L (35-45) mmHg ABG pO2 109 H (83-108) mmHg ABG HCO3 15 L (21-25) mmol/L ABG Total CO2 16 L (19-24) mmol/L ABG O2 Saturation 99.0 H (94-97) % Potassium 3.3 L (3.5-5.1) mmol/L Chloride (98-107) mmol/L Carbon Dioxide (22-30) mmol/L BUN (7-17) mg/dL POC Glucose (mg/dL) 105 H (75-99) mg/dL Calcium (8.4-10.2) mg/dL Phosphorus (2.5-4.5) mg/dL 01/16/17 01/16/17 01/16/17 Range/Units 16:20 17:52 22:00 RBC (3.80-5.40) m/uL Hgb (11.4-16.0) gm/dL Hct (34.0-46.0) % Lymphocytes # (1.0-4.8) k/uL ABG pCO2 (35-45) mmHg ABG pO2 (83-108) mmHg ABG HCO3 (21-25) mmol/L ABG Total CO2 (19-24) mmol/L ABG O2 Saturation (94-97) % Potassium 3.3 L 3.2 L (3.5-5.1) mmol/L Chloride (98-107) mmol/L Carbon Dioxide (22-30) mmol/L BUN (7-17) mg/dL POC Glucose (mg/dL) 103 H (75-99) mg/dL Calcium (8.4-10.2) mg/dL Phosphorus (2.5-4.5) mg/dL 01/16/17 01/17/17 01/17/17 Range/Units 23:52 04:15 04:15 RBC 3.17 L (3.80-5.40) m/uL Hgb 9.0 L (11.4-16.0) gm/dL Hct 28.1 L (34.0-46.0) % Lymphocytes # 0.7 L (1.0-4.8) k/uL ABG pCO2 (35-45) mmHg ABG pO2 (83-108) mmHg ABG HCO3 (21-25) mmol/L ABG Total CO2 (19-24) mmol/L ABG O2 Saturation (94-97) % Potassium (3.5-5.1) mmol/L Chloride 120 H* (98-107) mmol/L Carbon Dioxide 16 L (22-30) mmol/L BUN 19 H (7-17) mg/dL POC Glucose (mg/dL) 106 H (75-99) mg/dL Calcium 7.8 L (8.4-10.2) mg/dL Phosphorus 1.6 L (2.5-4.5) mg/dL Microbiology - Last 24 Hours (Table) 01/15/17 21:30 Blood Culture - Preliminary Blood No Growth after 24 hours 01/12/17 12:10 Blood Culture - Preliminary Blood No Growth after 96 hours 01/14/17 15:40 Gram Stain - Preliminary Sputum Sputum Culture - Preliminary Assessment and Plan (1) Hypertension Status: Acute (2) Postoperative respiratory failure Status: Acute (3) Atrial fibrillation Status: Acute (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 We'll allow her to wake up. The propofol has been discontinued. Blood pressure stable. We'll see if we can 't work towards weaning and extubation. Prognosis is guarded. I did speak to the patient's daughter. No additional recommendations are made. Plan dated 01/17/2017 The patient's overall prognosis is poor. We'll have to check on the pathology. The patient self family is I think wanting the patient to be a full code but close status needs to be addressed. Try to do that with her daughter today. Labs x-rays a medications are all reviewed. Additional recommendations suggestions are forthcoming. Time with Patient: Greater than 30
--- NOTE | 2017-01-17 07:51 | XR ---
EXAMINATION TYPE: XR chest 1V portable DATE OF EXAM: 01/17/2017 CLINICAL HISTORY: Difficulty breathing progress study. TECHNIQUE: Single AP portable upright view of the chest is obtained. COMPARISON: Chest x-ray from one day earlier and older studies. FINDINGS: There is interval extubation with removal of endotracheal tube. Orogastric tube and right internal jugular central venous catheter are stable. There is persistent mild cardiomegaly with atherosclerotic thoracic aorta. There are persistent small bilateral pleural effusions and patchy left basilar atelectasis and/or infiltrate. There is worsenin g central vascular congestion noted. Osseous structures are demineralized. Underlying scoliotic curva ture is redemonstrated. IMPRESSION: Interval extubation. There is persistent mild cardiomegaly with small bilateral pleural e ffusions and patchy left basilar atelectasis and/or infiltrate felt stable. Worsening mild to moderat e central vascular congestion however is noted. Consider progression of CHF or fluid overload state.
--- NOTE | 2017-01-17 09:01 | P.PN ---
Subjective Principal diagnosis: Large bowel obstruction, status post colon resection with colostomy The patient has remained off the ventilator. Her vasopressor is down significantly from yesterday. Tolerating tube feedings at 20 mL's an hour. The nurse did not feel she was safe with ice chips. Good ostomy output. The patient is confused Objective - Vital Signs Vital signs: Vital Signs Temp 98.3 F 01/17/17 04:00 Pulse 84 01/17/17 07:18 Resp 21 01/17/17 07:00 BP 88/50 01/15/17 23:00 Pulse Ox 84 L 01/17/17 07:00 Intake & Output 01/16/17 01/17/17 01/17/17 18:59 06:59 18:59 Intake Total 2125.005 1297.969 106 Output Total 2260 1853 50 Balance -134.995 -555.031 56 Weight 77.4 kg 77.4 kg Intake: IV 1422 1166 106 0.9 for pressure 72 66 6 Magnesium Sulfate-D5w Pmx 200 1 gm In Dextrose/Water 1 100ml.bag @ 100 mls/hr IVPB Q1H [facility] Rx#: [id number] Meropenem 1 gm In Sodium 200 Chloride 0.9% 100 ml @ 200 mls/hr IVPB Q8HR [facility] Rx#:[id number] Sodium Chloride 0.9% 1, 850 1100 100 000 ml @ 100 mls/hr IV . Q10H [facility] Rx#:[id number] metroNIDAZOLE-NS PMX 500 100 mg In Saline 1 100ml.bag @ 100 mls/hr IVPB Q8H [facility] Rx#:[id number] Intake, IV Titration 633.005 91.969 Amount Norepinephrin 16 mg-0.9% 95.72 91.969 Ns Pmx 16 mg In 250 ml @ Titrate IV .Q0M [facility] Rx#: [id number] Potassium Chloride 20 meq 100 In Water For Injection 1 100ml.bag @ 50 mls/hr IVPB ONCE ONE Rx#: [id number] Potassium Chloride 20 meq 100 In Water For Injection 1 100ml.bag @ 50 mls/hr IVPB ONCE STA Rx#: [id number] Potassium Phosphate 10 250 mmol In Sodium Chloride 0 .9% 250 ml @ 125 mls/hr IV ONCE ONE Rx#:[id number] Propofol 1,000 mg In 100 87.285 ml @ Titrate IV .Q0M [facility] Rx#:[id number] Tube Feeding 70 40 Output: Drainage 855 970 NG tube 100 300 Right Lower Abdomen 755 670 Urine 655 683 50 Stool 750 200 Other: Voiding Method Indwelling Catheter ABP, PAP, CO, CI - Last Documented Arterial Blood Pressure 110/45 - Constitutional General appearance: Present: cooperative, no acute distress - Respiratory Respiratory: bilateral: CTA, diminished (Minimally at the bases) - Cardiovascular Rhythm: regular - Gastrointestinal General gastrointestinal: Present: decreased bowel sounds, soft Localized gastrointestinal: tender: midline (Incision is intact clean and dry. No cellulitis. SURYA is serous. Ostomy is pink with a little mucosal slough at the superior aspect), surgical scar: midline - Labs CBC & Chem 7: 01/17/17 04:15 01/17/17 04:15 Labs: Abnormal Lab Results - Last 24 Hours (Table) 01/16/17 01/16/17 01/16/17 Range/Units 09:06 10:23 12:19 RBC (3.80-5.40) m/uL Hgb (11.4-16.0) gm/dL Hct (34.0-46.0) % Lymphocytes # (1.0-4.8) k/uL ABG pCO2 24 L (35-45) mmHg ABG pO2 109 H (83-108) mmHg ABG HCO3 15 L (21-25) mmol/L ABG Total CO2 16 L (19-24) mmol/L ABG O2 Saturation 99.0 H (94-97) % Potassium 3.3 L (3.5-5.1) mmol/L Chloride (98-107) mmol/L Carbon Dioxide (22-30) mmol/L BUN (7-17) mg/dL POC Glucose (mg/dL) 105 H (75-99) mg/dL Calcium (8.4-10.2) mg/dL Phosphorus (2.5-4.5) mg/dL 01/16/17 01/16/17 01/16/17 Range/Units 16:20 17:52 22:00 RBC (3.80-5.40) m/uL Hgb (11.4-16.0) gm/dL Hct (34.0-46.0) % Lymphocytes # (1.0-4.8) k/uL ABG pCO2 (35-45) mmHg ABG pO2 (83-108) mmHg ABG HCO3 (21-25) mmol/L ABG Total CO2 (19-24) mmol/L ABG O2 Saturation (94-97) % Potassium 3.3 L 3.2 L (3.5-5.1) mmol/L Chloride (98-107) mmol/L Carbon Dioxide (22-30) mmol/L BUN (7-17) mg/dL POC Glucose (mg/dL) 103 H (75-99) mg/dL Calcium (8.4-10.2) mg/dL Phosphorus (2.5-4.5) mg/dL 01/16/17 01/17/17 01/17/17 Range/Units 23:52 04:15 04:15 RBC 3.17 L (3.80-5.40) m/uL Hgb 9.0 L (11.4-16.0) gm/dL Hct 28.1 L (34.0-46.0) % Lymphocytes # 0.7 L (1.0-4.8) k/uL ABG pCO2 (35-45) mmHg ABG pO2 (83-108) mmHg ABG HCO3 (21-25) mmol/L ABG Total CO2 (19-24) mmol/L ABG O2 Saturation (94-97) % Potassium (3.5-5.1) mmol/L Chloride 120 H* (98-107) mmol/L Carbon Dioxide 16 L (22-30) mmol/L BUN 19 H (7-17) mg/dL POC Glucose (mg/dL) 106 H (75-99) mg/dL Calcium 7.8 L (8.4-10.2) mg/dL Phosphorus 1.6 L (2.5-4.5) mg/dL Microbiology - Last 24 Hours (Table) 01/15/17 21:30 Blood Culture - Preliminary Blood No Growth after 24 hours 01/12/17 12:10 Blood Culture - Preliminary Blood No Growth after 96 hours 01/14/17 15:40 Gram Stain - Preliminary Sputum Sputum Culture - Preliminary Assessment and Plan (1) Large bowel obstruction Status: Acute (2) Atrial fibrillation Status: Acute (3) Hypokalemia Status: Acute (4) Hypomagnesemia syndrome Status: Acute (5) Hypotensive episode Status: Acute (6) Renal failure syndrome Status: Acute (7) Diverticular disease of colon Status: Acute (8) Dehydration Status: Acute (9) Sepsis following intra-abdominal surgery Status: Inactive Plan: Will have speech pathology evaluated the patient for swallowing difficulties. If she is safe, she will be started on clear liquids and advanced to full liquids later today. Maintain the tube feedings until she is able to take in fairly normal oral feeds. Progressing slowly. Case discussed with patient's daughter.
--- NOTE | 2017-01-17 09:09 | PN ---
PROGRESS NOTE Mrs. Grove is an 86-year-old female who underwent colostomy for bowel obstruction as well as repair of the left ureter, has a history of chronic atrial fibrillation. She was intubated postoperatively and extubated yesterday. She is awake, alert, with no apparent distress. She is feeling tired. She continued to be in atrial fibrillation, but her ventricular response is under good control. She continues to be on IV norepinephrine, although she is down to 1 mcg per kg per minute. Anticoagulation has not been initiated yet. She continued to be on digoxin 0.125 mg daily. PHYSICAL EXAMINATION: Blood pressure is running 117/60 with the heart in the 80s to 90s. LUNGS: No wheezes. HEART: Irregular, irregular. S1, S2. No S3 with systolic murmur at the base. No diastolic murmur. ABDOMEN: Soft. Colostomy bag noted. EXTREMITIES: No significant edema. LAB DATA: Lab data revealed a potassium of 3.6, sodium 142, BUN and creatinine 19 and 0.9. Her magnesium is 1.8. Hemoglobin of 9.0. IMPRESSION: 1. Status post colostomy for bowel obstruction. 2. Atrial fibrillation, chronic, rate under better control. 3. History of hypertension. 4. Renal failure, resolved. 5. Hypokalemia, treated. RECOMMENDATION: We will continue to wean her norepinephrine to off. When she is off and her pressure is stable, then I will re-initiate the beta marc. The issue of anticoagulation needs to be addressed by the surgeon once she is felt to be stable. MMODL / IJN: [id number] /
[2017-01-17] MEDS: METOCLOPRAMIDE 5 MG/ML 2 ML VIAL IVP SCH ×3 (09:57→19:20)
[2017-01-17] MEDS: SODIUM CHLORIDE 0.45% 1,000 ML IV SCH ×2 (09:58→16:47)
[2017-01-17] MEDS: MEROPENEM 1 GM in SODIUM CHLORIDE 0.9% 100 ML IVPB SCH ×3 (09:59→23:36)
[2017-01-17] MEDS: PANTOPRAZOLE 40 MG/10 ML VIAL IV SCH (10:00)
[2017-01-17] MEDS: DIGOXIN 250 MCG/ML 2 ML AMP IVP SCH (11:00)
[2017-01-17] MEDS: HYDROmorphone 1 MG/ML 1 ML SYRINGE IVP PRN ×3 (11:01→19:19)
[2017-01-17 12:00] LABS: Glucose,Whole Blood 110 mg/dL (75-99)
--- NOTE | 2017-01-17 19:57 | PN ---
PROGRESS NOTE CHIEF COMPLAINT: Re-evaluation. HISTORY OF PRESENT ILLNESS: This is an 86-year-old female who was admitted to the hospital with large bowel obstruction. The patient has undergone surgery. She was on ventilator support initially. She is actually doing much better. She is awake. The patient is on a minimal dose of Levophed to maintain her blood pressure. The patient complains of excessive thirst. She is otherwise denying any symptoms. REVIEW OF SYSTEMS: Neuro: Denies any headaches or dizziness. Psych: No anxiety. Cardiac: No chest pain, angina, palpitations. Respiratory: Denies shortness of breath, cough. GI: No nausea, vomiting. Has abdominal pain. The patient has a colostomy with greenish loose stool. : No symptoms of dysuria or hematuria. Has an IDC. Extremities: No pain. Positive edema. Constitutional: No fever or chills. PHYSICAL EXAMINATION: GENERAL: Pleasant female, appears her stated age. Appears chronically ill and pale. VITAL SIGNS: Temperature 98.9, pulse 82 and irregularly irregular, respiratory rate 22, blood pressure 108/46, pulse ox 96% on 2 L. HEENT: Normocephalic. NECK: No JVD appreciated. CHEST: Mild decreased air flow at the left base, otherwise clear lung hicks. CARDIAC: Distant S1, S2 with no gallops. Irregular rhythm. Systolic murmur 2/6 left sternal border. ABDOMEN: Protuberant, tender. Bowel sounds present. EXTREMITIES: Edema. NEUROLOGIC: Awake, alert, oriented with well-coordinated movements of both upper and lower extremities. LABORATORY ASSESSMENT: CBC revealed a hemoglobin of 9, white count 8.2, platelets 125,000. Electrolytes reveals sodium 142, potassium 3.6, chloride 120, CO2 content 16, anion gap of 6, BUN 19, creatinine 0.9, phosphorus 7.8. ASSESSMENT: 1. Status post large bowel surgery. 2. Hypertension, resolving. 3. Renal failure, improved. 4. Chronic atrial fibrillation, rate controlled. 5. Anemia secondary to acute blood loss, post surgery. 6. Colostomy status. 7. Debility. PLAN: Continue present medical regimen. Expect the patient to be hopefully weaned off Levophed today. The patient's condition was discussed with Dr. Woody who wants to continue the NG tube even today, she plans to remove it tomorrow. The patient is getting some tube feedings right now, she needs more nutrition. Hopefully, patient can have some oral diet. Condition discussed with the patient. MMODL / IJN: [id number] /
[2017-01-17] MEDS: VANCOMYCIN 1,500 MG in SODIUM CHLORIDE 0.9% 250 ML IVPB SCH (21:19)
--- NOTE | 2017-01-17 23:27 | PN ---
PROGRESS NOTE DATE OF SERVICE: 01/17/2017 REASON FOR FOLLOW UP: Abdominal abscess. INTERVAL HISTORY: The patient is afebrile. She is more awake and alert. She is breathing comfortably, complaining of some abdominal pain, though no worsening. No nausea, vomiting. Did have good output in her colostomy bag. EXAMINATION: Blood pressure is 111/45 with a pulse of 80, temperature 97.3. She is 100% on 2L nasal cannula. GENERAL DESCRIPTION: An elderly female lying in bed in no distress. RESPIRATORY SYSTEM: Unlabored breathing. Clear to auscultation anteriorly. HEART: S1, S2. Regular rate and rhythm. ABDOMEN: Soft. Minimal tenderness and the colostomy did have output. LABS: Hemoglobin 9 with white count of 8.2. BUN of 19, creatinine 0.90. DIAGNOSTIC IMPRESSION AND PLAN: Patient with sepsis with hypertension, elevated white count, low-grade fever in a patient who did have a sigmoid obstruction and sigmoid resection and repair of the left ureter. The patient's white count has normalized; however, blood cultures has been negative for any pathogen. She will be maintained on broad-spectrum antibiotics in the form of meropenem and vancomycin at this point. If the patient continues to improve, hopefully finish therapy with oral antibiotics. Continue supportive care. MMODL / IJN: [id number] / MTDD
[2017-01-17 23:50] LABS: Glucose,Whole Blood 100 mg/dL (75-99)
[2017-01-18] MEDS: METOCLOPRAMIDE 5 MG/ML 2 ML VIAL IVP SCH ×4 (00:24→18:28)
[2017-01-18] MEDS: IPRATROPIUM-ALBUTEROL 3 ML NEB INHALATION SCH ×5 (03:22→20:00)
[2017-01-18] MEDS: SODIUM CHLORIDE 0.45% 1,000 ML IV SCH (03:39)
[2017-01-18] MEDS: HEPARIN SODIUM,PORCINE 5,000 UNIT/ML 1 ML VIAL SQ SCH ×3 (03:40→20:31)
[2017-01-18 04:34] LABS: Anisocytosis Slight; Basophils % (A) 0 %; CH 27.9; Eosinophils # (A) 0.1 k/uL (0-0.7); Eosinophils % (A) 1 %; HCT 29.1 % (34.0-46.0); HDW 3.23; HGB 8.9 gm/dL (11.4-16.0); Hypochromasia Moderate; Luc # (Auto) 0.13; Luc % (Auto) 2; Lymphocytes # (A) 0.5 k/uL (1.0-4.8); Lymphocytes % (A) 8 %; MCH 27.8 pg (25.0-35.0); MCHC 30.7 g/dL (31.0-37.0); MCV 90.4 fL (80.0-100.0); Mean Platelet Volume 7.7; Monocytes # (A) 0.3 k/uL (0-1.0); Monocytes % (A) 4 %; Neutrophils # (A) 5.8 k/uL (1.3-7.7); Neutrophils % (A) 85 %; RBC 3.22 m/uL (3.80-5.40); RDW 16.4 % (11.5-15.5); WBC 6.8 k/uL (3.8-10.6); WBC (Perox) 7.05
[2017-01-18 04:44] LABS: Anion Gap 3 mmol/L; Blood Urea Nitrogen 21 mg/dL (7-17); Carbon Dioxide 16 mmol/L (22-30); Glucose 103 mg/dL (74-99); Magnesium 1.8 mg/dL (1.6-2.3); Non-African American GFR(MDRD) >60 (>60 ml/min/1.73 sqM); Phosphorous 2.2 mg/dL (2.5-4.5); Potassium 3.9 mmol/L (3.5-5.1); Sodium 141 mmol/L (137-145)
[2017-01-18 04:52] LABS: Chloride 122 mmol/L (98-107)
[2017-01-18] MEDS: MAGNESIUM SULFATE-D5W PMX 1 GM in DEXTROSE/WATER 1 100ML.BAG IVPB SCH ×2 (05:39→06:40)
[2017-01-18] MEDS: INSULIN LISPRO (humaLOG) 300 UNIT/3 ML VIAL SQ SCH ×3 (05:53→18:26)
[2017-01-18 05:55] LABS: Glucose,Whole Blood 96 mg/dL (75-99)
[2017-01-18] MEDS ORDERED: POTASSIUM PHOSPHATE 10 MMOL in SODIUM CHLORIDE 0.9% 100 ML IV ONE (06:00)
--- NOTE | 2017-01-18 07:24 | XR ---
EXAMINATION TYPE: XR chest 1V portable DATE OF EXAM: 01/18/2017 COMPARISON: 01/17/2017 HISTORY: Follow-up examination, tube placement, shortness of breath. TECHNIQUE: Single frontal view of the chest is obtained. FINDINGS: Enteric tube projects off of the distal end of the [id number], coiling and returning wi th its distal tip oriented cephalad towards the gastroesophageal junction within the region of the ga stric fundus. Right internal jugular central venous catheter again terminates in the high right atriu m just beyond the cavoatrial junction. Persistent small left pleural effusion and probable trace right pleural effusion are seen in combinat ion with mild pulmonary vascular congestion and cardiomegaly. Findings are stable in comparison to th e prior. IMPRESSION: Similar pulmonary vascular congestion, small left and trace right pleural effusion, and cardiomegaly likely relating to decompensated congestive heart failure.
--- NOTE | 2017-01-18 08:19 | PN ---
PROGRESS NOTE Mrs. Grove is an 86-year-old female with a known history of chronic atrial fibrillation, who presented with bowel obstruction, underwent colostomy and repair of the left ureter. She is feeling well this morning. She denies any symptoms of chest discomfort. She feels tired. She continues to have an NG tube. She is in atrial fibrillation but with a controlled ventricular response. She is off the pressors. Hemodynamically, she is stable. She continues to be on digoxin 0.125 mg IV push daily. PHYSICAL EXAMINATION: Blood pressure 110/38 with a heart rate in the 70s. Lungs mild decrease in breath sounds. No wheezes. HEART: Irregular regular S1, S2. No S3 with a systolic murmur. ABDOMEN: Soft, nontender. Positive bowel sounds. Colostomy in place. EXTREMITIES: No edema. LAB DATA: Revealed potassium 141, her chloride is 122, BUN creatinine 21 and 1.8. Hemoglobin of 8.9. IMPRESSION: 1. Status post bowel obstruction with colostomy and repair of left ureter. 2. Atrial fibrillation, chronic. 3. Hyperchloridemia. 4. Hypotension, resolved. 5. Renal failure, resolved. RECOMMENDATION: From the cardiac standpoint, I would expect that once the NG tube was removed and we start feeding her, it will improve her chloride. Once she is taking p.o., I will switch her to oral digoxin and depending on her blood pressure, beta marc can be added to her regimen. The issue of anticoagulation needs to be addressed and we will await the input of the surgical team. CEE / LUDMILA: [id number] /
[2017-01-18] MEDS: DIGOXIN 250 MCG/ML 2 ML AMP IVP SCH (08:44)
[2017-01-18] MEDS: MEROPENEM 1 GM in SODIUM CHLORIDE 0.9% 100 ML IVPB SCH ×2 (08:45→16:07)
[2017-01-18] MEDS: PANTOPRAZOLE 40 MG/10 ML VIAL IV SCH (08:45)
--- NOTE | 2017-01-18 10:09 | P.PN ---
Subjective Progress Note Date: 01/18/17 Principal diagnosis: Colonic mass Progress note dated 01/16/2017 This is a 86-year-old female who remains on the ventilator. She was admitted on January 12 with small bowel obstruction and the subsequent day on January 13, she had an exploratory laparotomy and Gardiner's procedure colostomy and because of the left ureter injury she had that repaired. 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 Pathology on that is pending. Her surgeon was Dr. Woody and her primary doctor's Dr. Saldaña. The patient remains on the ventilator. She is on the assist control mode rate of 2009 of I' m 400 FiO2 30% and a PEEP of 5. Blood gases show a PaO2 of 137 a PaCO2 of 26 and a pH of 7.38. We then returned the FiO2 down to 25% and drop the time of I' m down to 350. In addition, the patient's on a saline IV at 100 mL an hour norepinephrine at 10 mcg/m propofol at 10 mics per kilogram per minute. There are no tube feeds as yet. The patient is starting to wake up. We will place her on PSV of 5 and CPAP of 5 and see if we can't move towards extubation. Progress note dated 01/17/2017 86-year-old female who was extubated from the ventilator yesterday. She was admitted on January 12 with a small bowel obstruction and on the subsequent day, had exploratory laparotomy and Gardiner's procedure with colostomy. She also sustained a left ureter injury at that time which was repaired. 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 Pathology as of yesterday was pending. Her surgeon is Dr. Woody. Her primary physician is Dr. Saldaña. Anyway, since extubation, she been somewhat lethargic. The patient was on a small dose of norepinephrine at 1 mcg/m. She is getting tube feeds with vital 20 with a goal of 30 mL an hour and she is also nasal O2 at 2 L and an IV appointment for 5 at 100 mL an hour. She is still a full code. We need to have that discussion with the family. I think her overall prognosis is poor and should she end up back on the ventilator, it's very likely she may not come off. I will talk to the daughter today when I see her. Progress note dated 01/18/2017 The patient was seen again today in follow-up in the intensive care unit. She is currently awake and alert in no acute distress. She is maintaining O2 saturations in the upper 90s on 2 L/m per nasal cannula. She needs increased encouragement regarding the use of the incentive spirometer and cough and deep breathing exercises. Her chest x-ray shows atelectasis at the bases and some evidence of fluid volume overload. She remains on bronchodilators every 4 hours. She is also hyperchloremic with a chloride of 122. She has a 0.45% normal saline at 100 mL's per hour. Her hemoglobin is stable at 8.9. No leukocytosis. Afebrile. Her ostomy is functioning with light brown liquid/ soft return. Nasogastric tube remains in place. She remains nourished with enteral tube feedings. She remains on vancomycin and meropenem. Pathology is pending. Objective - Vital Signs Vital signs: Vital Signs Temp 97.8 F 01/18/17 08:00 Pulse 84 01/18/17 08:00 Resp 21 01/18/17 08:00 BP 88/50 01/15/17 23:00 Pulse Ox 98 01/18/17 08:00 Intake & Output 01/17/17 01/18/17 01/18/17 18:59 06:59 18:59 Intake Total 2351.094 2207 286 Output Total 1520 1345 160 Balance 831.094 862 126 Weight 79.2 kg Intake: IV 1372 1547 256 0.9 for pressure 72 72 6 Magnesium Sulfate-D5w Pmx 100 100 1 gm In Dextrose/Water 1 100ml.bag @ 100 mls/hr IVPB Q1H [facility] Rx#: [id number] Meropenem 1 gm In Sodium 100 100 Chloride 0.9% 100 ml @ 200 mls/hr IVPB Q8HR [facility] Rx#:[id number] Potassium Phosphate 10 50 50 mmol In Sodium Chloride 0 .9% 100 ml @ 50 mls/hr IV ONCE ONE Rx#:[id number] Sodium Chloride 0.45% 1, 875 100 000 ml @ 100 mls/hr IV . Q10H [facility] Rx#:[id number] Sodium Chloride 0.9% 1, 1200 100 000 ml @ 100 mls/hr IV . Q10H [facility] Rx#:[id number] Vancomycin 1,500 mg In 250 Sodium Chloride 0.9% 250 ml @ 125 mls/hr IVPB Q24H [facility] Rx#:[id number] Intake, IV Titration 709.094 Amount Norepinephrin 16 mg-0.9% 9.094 Ns Pmx 16 mg In 250 ml @ Titrate IV .Q0M [facility] Rx#: [id number] Potassium Chloride 20 meq 200 In Water For Injection 1 100ml.bag @ 50 mls/hr IVPB ONCE [facility] Rx#: [id number] Potassium Phosphate 10 500 mmol In Sodium Chloride 0 .9% 250 ml @ 125 mls/hr IV Q2H [facility] Rx#:[id number] Tube Feeding 270 570 30 Other 90 Output: Drainage 680 220 50 NG tube 200 Right Lower Abdomen 480 220 50 Urine 560 575 110 Stool 280 550 Other: Voiding Method Indwelling Catheter Indwelling Catheter ABP, PAP, CO, CI - Last Documented Arterial Blood Pressure 133/49 - Exam GENERAL EXAM: Alert, fairly comfortable in no apparent distress. HEAD: Normocephalic. EYES: Normal reaction of pupils, equal size. NOSE: Nasogastric tube secured in place.. THROAT: No erythema or exudates. NECK: No masses, no JVD. CHEST: No chest wall deformity. LUNGS: Equal air entry with crackles in the posterior bases. CVS: S1 and S2 normal with no audible murmurs, regular rhythm. ABDOMEN: Ostomy functioning. Normal bowel sounds, no guarding or rigidity. SPINE: No scoliosis or deformity SKIN: No rashes CENTRAL NERVOUS SYSTEM: No focal deficits, tone is normal in all 4 extremities. Extremities: There is trace peripheral edema. No clubbing, no cyanosis. Peripheral pulses are intact. - Labs CBC & Chem 7: 01/18/17 04:15 01/18/17 04:15 Labs: Abnormal Lab Results - Last 24 Hours (Table) 01/17/17 01/17/17 01/18/17 Range/Units 11:58 23:47 04:15 RBC 3.22 L (3.80-5.40) m/uL Hgb 8.9 L (11.4-16.0) gm/dL Hct 29.1 L (34.0-46.0) % MCHC 30.7 L (31.0-37.0) g/dL RDW 16.4 H (11.5-15.5) % Lymphocytes # 0.5 L (1.0-4.8) k/uL Chloride (98-107) mmol/L Carbon Dioxide (22-30) mmol/L BUN (7-17) mg/dL Glucose (74-99) mg/dL POC Glucose (mg/dL) 110 H 100 H (75-99) mg/dL Calcium (8.4-10.2) mg/dL Phosphorus (2.5-4.5) mg/dL 01/18/17 Range/Units 04:15 RBC (3.80-5.40) m/uL Hgb (11.4-16.0) gm/dL Hct (34.0-46.0) % MCHC (31.0-37.0) g/dL RDW (11.5-15.5) % Lymphocytes # (1.0-4.8) k/uL Chloride 122 H* (98-107) mmol/L Carbon Dioxide 16 L (22-30) mmol/L BUN 21 H (7-17) mg/dL Glucose 103 H (74-99) mg/dL POC Glucose (mg/dL) (75-99) mg/dL Calcium 8.0 L (8.4-10.2) mg/dL Phosphorus 2.2 L (2.5-4.5) mg/dL Microbiology - Last 24 Hours (Table) 01/15/17 21:30 Blood Culture - Preliminary Blood No Growth after 48 hours 01/12/17 12:10 Blood Culture - Preliminary Blood No Growth after 120 hours 01/14/17 15:40 Gram Stain - Final Sputum Sputum Culture - Final Assessment and Plan Plan: Impression: 1 large bowel obstruction, status post colectomy with colostomy and left ureteral injury requiring repair postoperative day #5 2 postoperative respiratory failure, requiring intubation and mechanical ventilation expected considering the surgery involved. 3 history of chronic atrial fibrillation 4 history of benign essential hypertension 5 history of osteoarthritis 6 acute abdominal sepsis is suspected. 7 left lower lobe atelectasis, and small left pleural effusion. doubt pneumonia at this point. Granted, the patient remains on antibiotics for her abdominal sepsis. 8 postoperative hypotension, most likely related to fluid status,/hypovolemic in nature, strongly doubt hypotension secondary to abdominal sepsis at this point. This will likely improve with fluid boluses, and with control of the atrial fibrillation/RVR. Recommendation: The patient was seen and evaluated by Dr. Lees. Her chest x-ray and labs are reviewed. We'll change her 0.45 normal saline to D5W at 100 miles per hour. She does have been non-anion gap metabolic acidosis secondary to increased saline. We'll also give Lasix 40 mg IV push times one. We'll continue with her current medications. She is on heparin for DVT prophylaxis and Protonix for GI prophylaxis. Will increase her activity as tolerated. We'll continue to follow. She'll remain in the intensive care unit another 24 hours. I performed a history and physical examination of the patient along with my nurse practitioner, Verito Stanley. I agree with the above findings and discussed the plan of care. From the pulmonary standpoint her lungs have basilar crackles. Chest x-ray shows mild fluid volume overload. We have added additional Lasix. Time with Patient: Greater than 30
[2017-01-18] MEDS ORDERED: FUROSEMIDE 10 MG/ML 4 ML VIAL IV STA (10:12)
[2017-01-18] MEDS: DEXTROSE 5% IN WATER 1,000 ML IV SCH ×2 (10:31→20:35)
[2017-01-18] MEDS: HYDROmorphone 1 MG/ML 1 ML SYRINGE IVP PRN ×4 (10:38→21:52)
[2017-01-18 12:27] LABS: Glucose,Whole Blood 104 mg/dL (75-99)
--- NOTE | 2017-01-18 13:36 | P.PN ---
Subjective Progress Note Date: 01/18/17 Principal diagnosis: Large bowel obstruction, status post colon resection with colostomy The patient is seen on rounds this morning. She is having minimal pain. Tolerating tube feedings. Speech Pathology did see her and cleared her for any thickened liquids. She is off the vasopressors. Objective - Vital Signs Vital signs: Vital Signs Temp 97.8 F 01/18/17 08:00 Pulse 84 01/18/17 12:00 Resp 16 01/18/17 12:00 BP 90/45 01/18/17 12:00 Pulse Ox 100 01/18/17 12:00 Intake & Output 01/17/17 01/18/17 01/18/17 18:59 06:59 18:59 Intake Total 2351.094 2207 916 Output Total 1520 1345 1600 Balance 831.094 862 -684 Weight 79.2 kg 79.2 kg Intake: IV 1372 1547 456 0.9 for pressure 72 72 6 Magnesium Sulfate-D5w Pmx 100 100 1 gm In Dextrose/Water 1 100ml.bag @ 100 mls/hr IVPB Q1H [facility] Rx#: [id number] Meropenem 1 gm In Sodium 100 100 100 Chloride 0.9% 100 ml @ 200 mls/hr IVPB Q8HR [facility] Rx#:[id number] Potassium Phosphate 10 50 50 mmol In Sodium Chloride 0 .9% 100 ml @ 50 mls/hr IV ONCE [facility] Rx#:[id number] Sodium Chloride 0.45% 1, 875 200 000 ml @ 100 mls/hr IV . Q10H [facility] Rx#:[id number] Sodium Chloride 0.9% 1, 1200 100 000 ml @ 100 mls/hr IV . Q10H [facility] Rx#:[id number] Vancomycin 1,500 mg In 250 Sodium Chloride 0.9% 250 ml @ 125 mls/hr IVPB Q24H [facility] Rx#:[id number] Intake, IV Titration 709.094 300 Amount Dextrose 5% in Water 1, 300 000 ml @ 100 mls/hr IV . Q10H [facility] Rx#:[id number] Norepinephrin 16 mg-0.9% 9.094 Ns Pmx 16 mg In 250 ml @ Titrate IV .Q0M [facility] Rx#: [id number] Potassium Chloride 20 meq 200 In Water For Injection 1 100ml.bag @ 50 mls/hr IVPB ONCE [facility] Rx#: [id number] Potassium Phosphate 10 500 mmol In Sodium Chloride 0 .9% 250 ml @ 125 mls/hr IV Q2H [facility] Rx#:[id number] Oral 130 Tube Feeding 270 570 30 Other 90 Output: Drainage 680 220 150 NG tube 200 Right Lower Abdomen 480 220 150 Urine 560 575 850 Stool 280 550 600 Other: Voiding Method Indwelling Catheter Indwelling Catheter Indwelling Catheter ABP, PAP, CO, CI - Last Documented Arterial Blood Pressure 118/43 - Constitutional General appearance: Present: cooperative, no acute distress - Respiratory Respiratory: bilateral: CTA, diminished (Minimally at the bases) - Cardiovascular Rhythm: regular (Rhythm is fairly regular.) - Gastrointestinal General gastrointestinal: Present: normal bowel sounds, soft Localized gastrointestinal: surgical scar: diffuse (Ostomy is pink and viable with good output. Midline incision is healing without cellulitis. There is serous drainage from the midline incision. No significant distention. SURYA is serous.) - Labs CBC & Chem 7: 01/18/17 04:15 01/18/17 04:15 Labs: Abnormal Lab Results - Last 24 Hours (Table) 01/17/17 01/18/17 01/18/17 Range/Units 23:47 04:15 04:15 RBC 3.22 L (3.80-5.40) m/uL Hgb 8.9 L (11.4-16.0) gm/dL Hct 29.1 L (34.0-46.0) % MCHC 30.7 L (31.0-37.0) g/dL RDW 16.4 H (11.5-15.5) % Lymphocytes # 0.5 L (1.0-4.8) k/uL Chloride 122 H* (98-107) mmol/L Carbon Dioxide 16 L (22-30) mmol/L BUN 21 H (7-17) mg/dL Glucose 103 H (74-99) mg/dL POC Glucose (mg/dL) 100 H (75-99) mg/dL Calcium 8.0 L (8.4-10.2) mg/dL Phosphorus 2.2 L (2.5-4.5) mg/dL 01/18/17 Range/Units 12:25 RBC (3.80-5.40) m/uL Hgb (11.4-16.0) gm/dL Hct (34.0-46.0) % MCHC (31.0-37.0) g/dL RDW (11.5-15.5) % Lymphocytes # (1.0-4.8) k/uL Chloride (98-107) mmol/L Carbon Dioxide (22-30) mmol/L BUN (7-17) mg/dL Glucose (74-99) mg/dL POC Glucose (mg/dL) 104 H (75-99) mg/dL Calcium (8.4-10.2) mg/dL Phosphorus (2.5-4.5) mg/dL Microbiology - Last 24 Hours (Table) 01/15/17 21:30 Blood Culture - Preliminary Blood No Growth after 48 hours 01/12/17 12:10 Blood Culture - Preliminary Blood No Growth after 120 hours Assessment and Plan (1) Large bowel obstruction Status: Acute (2) Atrial fibrillation Status: Acute (3) Hypokalemia Status: Acute (4) Hypomagnesemia syndrome Status: Acute (5) Hypotensive episode Status: Acute (6) Renal failure syndrome Status: Acute (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 We'll start her on honey thickened liquids and if she is able to tolerate that well, we will remove the nasogastric tube and discontinued tube feedings tomorrow. Still awaiting pathology. Physical therapy to help her regain her strength. Progressing slowly. One of my partners will cover her until I am back in town on Monday.
--- NOTE | 2017-01-18 16:42 | P.PN ---
Subjective Progress Note Date: 01/18/17 Principal diagnosis: Acute bowel obstruction History present illness: This 86-year-old female was admitted to the hospital with acute bowel obstruction. She is a colostomy now. Patient remained hypotensive for significant period of time but is now currently off Levophed. Patient's continued on IV hydration. She still has an NG tube receiving continuous tube feeding. She does have some difficulty swallowing per nursing. She has swallow evaluation and the recommendation was neck to thickened consistencies at present. Patient has been able to swallow thickened liquids without difficulty. She does have mild abdominal discomfort and generalized malaise otherwise denies any significant symptoms. She is anxious to go home. Reviewed with patient her acute illness. Patient has no fever or chills. Patient's followed by pulmonary/turn machine operator/cardiology/ID. And the general surgeon. Patient has a history of chronic atrial fibrillation at present rate control. The goal is to start her on a small dose of beta marc once the feeding tube was taken off. Patient also be started on now with an okay with the surgeons. REVIEW OF SYSTEMS: Neuro: Denies any headaches dizziness. Psych: Denies anxiety depression feels oriented. Cardiac: Denies chest pain and angina palpitations. Respiratory: Denies shortness of breath cough. GI: Denies nausea vomiting. Does have some abdominal discomfort but improving. She has a colostomy with liquid greenish stool : Denies dysuria hematuria, has an IDC. Good urine output. Extremities: Has chronic arthritic pain in the knee joints. Does have some edema Skin: No reported breakdown. Constitutional: Denies fever or chills. Does have malaise Objective - Vital Signs Vital signs: Vital Signs Temp 97.8 F 01/18/17 08:00 Pulse 67 01/18/17 15:00 Resp 14 01/18/17 15:00 BP 92/47 01/18/17 15:00 Pulse Ox 100 01/18/17 15:00 Intake & Output 01/17/17 01/18/17 01/18/17 18:59 06:59 18:59 Intake Total 2351.094 2207 1316 Output Total 1520 1345 2175 Balance 831.094 862 -859 Weight 79.2 kg 79.2 kg Intake: IV 1372 1547 456 0.9 for pressure 72 72 6 Magnesium Sulfate-D5w Pmx 100 100 1 gm In Dextrose/Water 1 100ml.bag @ 100 mls/hr IVPB Q1H [facility] Rx#: [id number] Meropenem 1 gm In Sodium 100 100 100 Chloride 0.9% 100 ml @ 200 mls/hr IVPB Q8HR [facility] Rx#:[id number] Potassium Phosphate 10 50 50 mmol In Sodium Chloride 0 .9% 100 ml @ 50 mls/hr IV ONCE ONE Rx#:[id number] Sodium Chloride 0.45% 1, 875 200 000 ml @ 100 mls/hr IV . Q10H [facility] Rx#:[id number] Sodium Chloride 0.9% 1, 1200 100 000 ml @ 100 mls/hr IV . Q10H [facility] Rx#:[id number] Vancomycin 1,500 mg In 250 Sodium Chloride 0.9% 250 ml @ 125 mls/hr IVPB Q24H [facility] Rx#:[id number] Intake, IV Titration 709.094 700 Amount Dextrose 5% in Water 1, 700 000 ml @ 100 mls/hr IV . Q10H [facility] Rx#:[id number] Norepinephrin 16 mg-0.9% 9.094 Ns Pmx 16 mg In 250 ml @ Titrate IV .Q0M [facility] Rx#: [id number] Potassium Chloride 20 meq 200 In Water For Injection 1 100ml.bag @ 50 mls/hr IVPB ONCE [facility] Rx#: [id number] Potassium Phosphate 10 500 mmol In Sodium Chloride 0 .9% 250 ml @ 125 mls/hr IV Q2H [facility] Rx#:[id number] Oral 130 Tube Feeding 270 570 30 Other 90 Output: Drainage 680 220 150 NG tube 200 Right Lower Abdomen 480 220 150 Urine 149 007 0120 Stool 280 550 600 Other: Voiding Method Indwelling Catheter Indwelling Catheter Indwelling Catheter ABP, PAP, CO, CI - Last Documented Arterial Blood Pressure 109/40 PHYSICAL EXAMINATION: Cooperative, at present in no acute distress. HEENT: [Neck supple. No JVD. Oral cavity dry. Has an NG tube in place.] Chest: [Clear to auscultation] Cardiac: [Normal S1-S2] [no gallops] systolic murmur left sternal border. Rhythm irregularly irregular with controlled heart rate Abdomen: Mildly tender [bowel sounds present.] Extremities: 1+ edema [no tenderness ] Neurologically: Awake alert oriented with well-corticated movements both upper extremities. She also moves lower extremities adequately - Labs CBC & Chem 7: 01/18/17 04:15 01/18/17 04:15 Labs: Abnormal Lab Results - Last 24 Hours (Table) 01/17/17 01/18/17 01/18/17 Range/Units 23:47 04:15 04:15 RBC 3.22 L (3.80-5.40) m/uL Hgb 8.9 L (11.4-16.0) gm/dL Hct 29.1 L (34.0-46.0) % MCHC 30.7 L (31.0-37.0) g/dL RDW 16.4 H (11.5-15.5) % Lymphocytes # 0.5 L (1.0-4.8) k/uL Chloride 122 H* (98-107) mmol/L Carbon Dioxide 16 L (22-30) mmol/L BUN 21 H (7-17) mg/dL Glucose 103 H (74-99) mg/dL POC Glucose (mg/dL) 100 H (75-99) mg/dL Calcium 8.0 L (8.4-10.2) mg/dL Phosphorus 2.2 L (2.5-4.5) mg/dL 01/18/17 Range/Units 12:25 RBC (3.80-5.40) m/uL Hgb (11.4-16.0) gm/dL Hct (34.0-46.0) % MCHC (31.0-37.0) g/dL RDW (11.5-15.5) % Lymphocytes # (1.0-4.8) k/uL Chloride (98-107) mmol/L Carbon Dioxide (22-30) mmol/L BUN (7-17) mg/dL Glucose (74-99) mg/dL POC Glucose (mg/dL) 104 H (75-99) mg/dL Calcium (8.4-10.2) mg/dL Phosphorus (2.5-4.5) mg/dL Microbiology - Last 24 Hours (Table) 01/12/17 12:10 Blood Culture - Final Blood No Growth after 144 hours 01/15/17 21:30 Blood Culture - Preliminary Blood No Growth after 48 hours Assessment and Plan Plan: ASSESSMENT: 1. Chronic atrial fibrillation rate control. 2. Status post abdominal surgery for bowel obstruction. 3. Hypotension resolved. 4. Anemia secondary to acute blood loss. 5. Diabetes mellitus with uncontrolled blood sugars. 6. Generalized debility. 7. Decreased nutritional status. 8. Acute on chronic renal failure improved. PLAN: Continue present medical regimen. Discussed with Dr. Woody regarding revealed feeding tube. She wants to wait another day. We will continue our recommendation. Asians condition discussed with patient..
[2017-01-18 18:22] LABS: Glucose,Whole Blood 114 mg/dL (75-99)
[2017-01-18] MEDS ORDERED: VANCOMYCIN TROUGH DUE 1 EACH MISC MISCELLANE ONE (20:00)
[2017-01-18] MEDS: VANCOMYCIN 1,500 MG in SODIUM CHLORIDE 0.9% 250 ML IVPB SCH (20:34)
--- NOTE | 2017-01-18 23:34 | PN ---
PROGRESS NOTE DATE OF SERVICE: 01/18/2017 REASON FOR FOLLOWUP: Abdominal sepsis. INTERVAL HISTORY: The patient was seen on rounds earlier this afternoon. The patient has been afebrile. She is hemodynamically stable, not on any pressor support. The patient did pass her swallow test and has been started on thickened liquids. No nausea or vomiting. Abdominal pain is currently controlled. Did not open her colostomy bag. PHYSICAL EXAMINATION: Blood pressure 102/44 with a pulse of 72, temperature 97.1. She is 99% on 2 L nasal cannula. General description is an elderly female lying in bed in no distress. HEENT EXAMINATION: Pallor. Oral mucosa membrane dry. LUNGS: Unlabored breathing. Clear to auscultation anteriorly. HEART: S1, S2. Regular rate and rhythm. ABDOMEN: Soft. No tenderness. LABS: Hemoglobin 8.9, white count 6.8 with a BUN of 21, creatinine 0.80. Vancomycin trough is 16. Cultures remain negative. DIAGNOSTIC IMPRESSION AND PLAN: Patient with abdominal sepsis with an obstructing sigmoid mass, status post diverting colostomy: The patient at this time will continue with the meropenem. If no Gram- positives are grown, will discontinue the vancomycin. Continue supportive care. MMODL / IJN: [id number] /
[2017-01-19] MEDS: IPRATROPIUM-ALBUTEROL 3 ML NEB INHALATION SCH ×6 (00:03→19:08)
[2017-01-19 00:13] LABS: Glucose,Whole Blood 105 mg/dL (75-99)
[2017-01-19] MEDS: INSULIN LISPRO (humaLOG) 300 UNIT/3 ML VIAL SQ SCH ×5 (00:32→23:17)
[2017-01-19] MEDS: MEROPENEM 1 GM in SODIUM CHLORIDE 0.9% 100 ML IVPB SCH ×3 (00:35→21:04)
[2017-01-19] MEDS: METOCLOPRAMIDE 5 MG/ML 2 ML VIAL IVP SCH ×5 (00:35→23:20)
[2017-01-19] MEDS: HYDROmorphone 1 MG/ML 1 ML SYRINGE IVP PRN ×2 (04:21→21:53)
[2017-01-19] MEDS: HEPARIN SODIUM,PORCINE 5,000 UNIT/ML 1 ML VIAL SQ SCH ×3 (04:23→18:19)
[2017-01-19 05:46] LABS: Basophils % (A) 0 %; CH 27.1; CHCM 29.8; Eosinophils # (A) 0.1 k/uL (0-0.7); Eosinophils % (A) 1 %; HCT 28.1 % (34.0-46.0); HDW 3.12; HGB 8.8 gm/dL (11.4-16.0); Hypochromasia Marked; Luc # (Auto) 0.15; Luc % (Auto) 2; Lymphocytes # (A) 0.8 k/uL (1.0-4.8); Lymphocytes % (A) 13 %; MCH 28.4 pg (25.0-35.0); MCHC 31.2 g/dL (31.0-37.0); MCV 91.2 fL (80.0-100.0); Mean Platelet Volume 7.7; Monocytes # (A) 0.3 k/uL (0-1.0); Monocytes % (A) 4 %; Neutrophils % (A) 80 %; RBC 3.08 m/uL (3.80-5.40); RDW 15.7 % (11.5-15.5); WBC 6.3 k/uL (3.8-10.6); WBC (Perox) 6.46
[2017-01-19 06:05] LABS: Anion Gap 3 mmol/L; Blood Urea Nitrogen 20 mg/dL (7-17); Calcium 7.8 mg/dL (8.4-10.2); Carbon Dioxide 19 mmol/L (22-30); Chloride 113 mmol/L (98-107); Glucose 103 mg/dL (74-99); Magnesium 1.6 mg/dL (1.6-2.3); Non-African American GFR(MDRD) >60 (>60 ml/min/1.73 sqM); Potassium 3.8 mmol/L (3.5-5.1); Sodium 135 mmol/L (137-145)
[2017-01-19 06:23] LABS: Glucose,Whole Blood 124 mg/dL (75-99)
[2017-01-19] MEDS: MAGNESIUM SULFATE-D5W PMX 1 GM in DEXTROSE/WATER 1 100ML.BAG IVPB SCH ×2 (07:38→08:44)
[2017-01-19] MEDS: POTASSIUM CHLORIDE 10 MEQ, LIDOCAINE 2% INJ 10 MG in SODIUM CHLORIDE 0.9% 100 ML IV SCH ×2 (07:38→08:46)
--- NOTE | 2017-01-19 07:56 | PN ---
PROGRESS NOTE Mrs. mobley in an 86-year-old female who presented with obstructed bowel, underwent a colostomy and repair of a left ureteral. She was intubated and on pressor. She is extubated this time off vasopressor. She is doing well. Feeling stronger, denying any chest pain. Her breathing has been stable. Her ventricular response has been controlled. She has no chest pain. No dizziness or palpitations. Her level of activity remains quite limited. She continues on digoxin 0.125 mg daily. PHYSICAL EXAMINATION: Blood pressure running in the one teens to 120s with a heart rate in the 80s. Lungs is no rales or wheezes appreciated. HEART: Irregular regular S1, S2. No S3. No rub. ABDOMEN: Soft. Colostomy bag in place plus bowel sounds. Extremities is no significant edema. LAB DATA: BUN and creatinine revealed 20 and 0.8. Potassium is 3.8. Her hemoglobin is 8.8. Magnesium is 1.6. IMPRESSION: 1. Status post colostomy and repair of the left ureter post bowel obstruction. 2. Chronic atrial fibrillation. 3. Hypotension, resolved. 4. Renal failure, resolved. 5. Prior history of hypertension, off treatment at this time. RECOMMENDATION: From the cardiac standpoint, I will switch her to oral digoxin. Continue to increase her level of activity. Follow her renal function and her blood pressure and depending on that, further recommendation will be made. The issue of anticoagulation needs to be readdressed once she is cleared by the surgeon. MMODL / IJN: [id number] /
--- NOTE | 2017-01-19 08:42 | P.PN ---
Subjective Progress note dated 01/16/2017 This is a 86-year-old female who remains on the ventilator. She was admitted on January 12 with small bowel obstruction and the subsequent day on January 13, she had an exploratory laparotomy and Gardiner's procedure colostomy and because of the left ureter injury she had that repaired. 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 Pathology on that is pending. Her surgeon was Dr. Woody and her primary doctor's Dr. Saldaña. The patient remains on the ventilator. She is on the assist control mode rate of 2009 of I' m 400 FiO2 30% and a PEEP of 5. Blood gases show a PaO2 of 137 a PaCO2 of 26 and a pH of 7.38. We then returned the FiO2 down to 25% and drop the time of I' m down to 350. In addition, the patient's on a saline IV at 100 mL an hour norepinephrine at 10 mcg/m propofol at 10 mics per kilogram per minute. There are no tube feeds as yet. The patient is starting to wake up. We will place her on PSV of 5 and CPAP of 5 and see if we can't move towards extubation. Progress note dated 01/17/2017 86-year-old female who was extubated from the ventilator yesterday. She was admitted on January 12 with a small bowel obstruction and on the subsequent day, had exploratory laparotomy and Gardiner's procedure with colostomy. She also sustained a left ureter injury at that time which was repaired. 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 Pathology as of yesterday was pending. Her surgeon is Dr. Woody. Her primary physician is Dr. Saldaña. Anyway, since extubation, she been somewhat lethargic. The patient was on a small dose of norepinephrine at 1 mcg/m. She is getting tube feeds with vital 20 with a goal of 30 mL an hour and she is also nasal O2 at 2 L and an IV appointment for 5 at 100 mL an hour. She is still a full code. We need to have that discussion with the family. I think her overall prognosis is poor and should she end up back on the ventilator, it's very likely she may not come off. I will talk to the daughter today when I see her. Progress note dated 01/19/2017 This is an 86-year-old female who was admitted back on January 12 with a small bowel obstruction. She had exploratory laparotomy on the subsequent day and had a Gardiner's procedure with colostomy. She also sustained a left ureter injury which was repaired. She had a large bowel mass and apparently is benign by pathology. Her surgeon is Dr. Woody. Her primary physician is Dr. Saldaña. Currently she is doing reasonably well. She is on an IV of D5W at 100 mL an hour getting tube feeds with vital 1.2 at 50 with a goal of 50. She's also getting oxygen at 2 L nasal cannula. Still weak. It is improving though. Probably can move out of the ICU. Objective - Vital Signs Vital signs: Vital Signs Temp 98.1 F 01/19/17 04:00 Pulse 79 01/19/17 07:26 Resp 14 01/19/17 07:00 BP 91/50 01/19/17 07:00 Pulse Ox 98 01/19/17 07:00 Intake & Output 01/18/17 01/19/17 01/19/17 18:59 06:59 18:59 Intake Total 1956 2190 150 Output Total 3185 2215 50 Balance -1229 -25 100 Weight 79.2 kg 82.2 kg Intake: IV 456 1360 100 0.9 for pressure 6 10 Dextrose 5% in Water 1, 1000 100 000 ml @ 100 mls/hr IV . Q10H [facility] Rx#:[id number] Magnesium Sulfate-D5w Pmx 100 1 gm In Dextrose/Water 1 100ml.bag @ 100 mls/hr IVPB Q1H [facility] Rx#: [id number] Meropenem 1 gm In Sodium 100 100 Chloride 0.9% 100 ml @ 200 mls/hr IVPB Q8HR [facility] Rx#:[id number] Potassium Phosphate 10 50 mmol In Sodium Chloride 0 .9% 100 ml @ 50 mls/hr IV ONCE ONE Rx#:[id number] Sodium Chloride 0.45% 1, 200 000 ml @ 100 mls/hr IV . Q10H [facility] Rx#:[id number] Vancomycin 1,500 mg In 250 Sodium Chloride 0.9% 250 ml @ 125 mls/hr IVPB Q24H [facility] Rx#:[id number] Intake, IV Titration 900 Amount Dextrose 5% in Water 1, 900 000 ml @ 100 mls/hr IV . Q10H [facility] Rx#:[id number] Oral 130 50 Tube Feeding 470 750 50 Other 30 Output: Drainage 570 450 NG tube 90 Right Lower Abdomen 570 360 Urine 1615 865 50 Stool 800 600 Emesis 200 300 Other: Voiding Method Indwelling Catheter Indwelling Catheter ABP, PAP, CO, CI - Last Documented Arterial Blood Pressure 86/34 - Exam No acute distress, she seems a little lethargic and sleepy today. HEENT examinations unremarkable. Mucous membranes are moist. Neck supple. Full range of motion. No adenopathy or thyromegaly. Cardiovascular examination reveals regular rhythm rate. S1-S2 normal. No murmur. Lungs reveal relatively clear breath sounds. A few scattered rhonchi. No wheezes. No crackles. Abdomen soft bowel sounds are not heard. Extremities are intact. No cyanosis clubbing or edema. Skin without rash. Neurologic examination is difficult to perform. - Labs CBC & Chem 7: 01/19/17 05:00 01/19/17 05:00 Labs: Abnormal Lab Results - Last 24 Hours (Table) 01/18/17 01/18/17 01/19/17 Range/Units 12:25 18:21 00:11 RBC (3.80-5.40) m/uL Hgb (11.4-16.0) gm/dL Hct (34.0-46.0) % RDW (11.5-15.5) % Plt Count (150-450) k/uL Lymphocytes # (1.0-4.8) k/uL Sodium (137-145) mmol/L Chloride (98-107) mmol/L Carbon Dioxide (22-30) mmol/L BUN (7-17) mg/dL Glucose (74-99) mg/dL POC Glucose (mg/dL) 104 H 114 H 105 H (75-99) mg/dL Calcium (8.4-10.2) mg/dL 01/19/17 01/19/17 01/19/17 Range/Units 05:00 05:00 06:20 RBC 3.08 L (3.80-5.40) m/uL Hgb 8.8 L (11.4-16.0) gm/dL Hct 28.1 L (34.0-46.0) % RDW 15.7 H (11.5-15.5) % Plt Count 137 L (150-450) k/uL Lymphocytes # 0.8 L (1.0-4.8) k/uL Sodium 135 L (137-145) mmol/L Chloride 113 H (98-107) mmol/L Carbon Dioxide 19 L (22-30) mmol/L BUN 20 H (7-17) mg/dL Glucose 103 H (74-99) mg/dL POC Glucose (mg/dL) 124 H (75-99) mg/dL Calcium 7.8 L (8.4-10.2) mg/dL Microbiology - Last 24 Hours (Table) 01/15/17 21:30 Blood Culture - Preliminary Blood No Growth after 72 hours 01/12/17 12:10 Blood Culture - Final Blood No Growth after 144 hours Assessment and Plan (1) Hypertension Status: Acute (2) Postoperative respiratory failure Status: Acute (3) Atrial fibrillation Status: Acute (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 We'll allow her to wake up. The propofol has been discontinued. Blood pressure stable. We'll see if we can 't work towards weaning and extubation. Prognosis is guarded. I did speak to the patient's daughter. No additional recommendations are made. Plan dated 01/17/2017 The patient's overall prognosis is poor. We'll have to check on the pathology. The patient self family is I think wanting the patient to be a full code but close status needs to be addressed. Try to do that with her daughter today. Labs x-rays a medications are all reviewed. Additional recommendations suggestions are forthcoming. Plan dated 01/19/2017 The patient is doing better today. Still weak and lethargic. Pathology was negative for malignancy. The patient could be transferred out to the general medical floor. No additional recommendations are made. Likely the patient will need rehab. We'll continue to follow. Time with Patient: Greater than 30
[2017-01-19] MEDS: DEXTROSE 5% IN WATER 1,000 ML IV SCH ×2 (08:50→18:47)
[2017-01-19] MEDS: DIGOXIN 125 MCG TAB PO SCH (08:54)
--- NOTE | 2017-01-19 08:57 | XR ---
EXAMINATION TYPE: XR chest 1V portable DATE OF EXAM: 01/19/2017 COMPARISON: 01/18/2017 HISTORY: Follow-up for congestive heart failure. Shortness of breath. TECHNIQUE: Single frontal view of the chest is obtained. FINDINGS: Enteric tube has been retracted in the interim with its fenestrated portion at the level o f the aortic arch, an appropriately placed. The right central venous catheter is unchanged in positio n. Mild pulmonary vascular congestion remains as well as small left pleural effusion, trace right ple ural effusion and bibasilar airspace disease. Cardiomediastinal silhouette is enlarged. Degenerative changes of the right acromio clavicular joint are noted. IMPRESSION: 1. Retraction of the enteric tube with its fenestrated portion at the level of the aortic arch. Repla cement is recommended. Finding was discussed with the patient's ICU nurse at the time of dictation. 2. Unchanged moderate pulmonary vascular congestion trace right and small left pleural effusion, and cardiomegaly likely on the basis of similar-appearing decompensated congestive heart failure.
--- NOTE | 2017-01-19 09:37 | XR ---
EXAMINATION TYPE: XR chest 1V portable DATE OF EXAM: 01/19/2017 COMPARISON: 01/19/2017 at 6:27 AM HISTORY: Nasogastric tube placement TECHNIQUE: Single frontal view of the chest is obtained. FINDINGS: Technique is substantially different than the prior exam. Nasogastric tube has been advanc ed with its fenestrated portion beyond the gastroesophageal junction, appropriately placed and its di stal tip overlying the region of the gastric body. There is redemonstration of small left and trace r ight pleural effusions, moderate pulmonary vascular congestion, stable placement of the right interna l jugular central venous catheter, and cardiomegaly as well as degenerative changes of the osseous st ructures. IMPRESSION: Advanced an appropriately placed nasogastric tube. Unchanged sequela of congestive heart failure in comparison to the prior chest radiograph of the same date.
[2017-01-19] MEDS: PANTOPRAZOLE 40 MG/10 ML VIAL IV SCH (10:35)
--- NOTE | 2017-01-19 11:11 | P.PN ---
Subjective The patient is recuperating from her abdominal surgery. I explained to her that she had the ureteral injury with ureteroureterostomy she understands she will need a a stent for proximally 4-6 weeks and then I will remove this in the office. Objective - Vital Signs Vital signs: Vital Signs Temp 98.1 F 01/19/17 04:00 Pulse 79 01/19/17 07:26 Resp 14 01/19/17 07:00 BP 91/50 01/19/17 07:00 Pulse Ox 98 01/19/17 07:00 Intake & Output 01/18/17 01/19/17 01/19/17 18:59 06:59 18:59 Intake Total 1956 2190 150 Output Total 3185 2215 50 Balance -1229 -25 100 Weight 79.2 kg 82.2 kg Intake: IV 456 1360 100 0.9 for pressure 6 10 Dextrose 5% in Water 1, 1000 100 000 ml @ 100 mls/hr IV . Q10H [facility] Rx#:[id number] Magnesium Sulfate-D5w Pmx 100 1 gm In Dextrose/Water 1 100ml.bag @ 100 mls/hr IVPB Q1H [facility] Rx#: [id number] Meropenem 1 gm In Sodium 100 100 Chloride 0.9% 100 ml @ 200 mls/hr IVPB Q8HR [facility] Rx#:[id number] Potassium Phosphate 10 50 mmol In Sodium Chloride 0 .9% 100 ml @ 50 mls/hr IV ONCE ONE Rx#:[id number] Sodium Chloride 0.45% 1, 200 000 ml @ 100 mls/hr IV . Q10H [facility] Rx#:[id number] Vancomycin 1,500 mg In 250 Sodium Chloride 0.9% 250 ml @ 125 mls/hr IVPB Q24H [facility] Rx#:[id number] Intake, IV Titration 900 Amount Dextrose 5% in Water 1, 900 000 ml @ 100 mls/hr IV . Q10H [facility] Rx#:[id number] Oral 130 50 Tube Feeding 470 750 50 Other 30 Output: Drainage 570 450 NG tube 90 Right Lower Abdomen 570 360 Urine 1615 865 50 Stool 800 600 Emesis 200 300 Other: Voiding Method Indwelling Catheter Indwelling Catheter ABP, PAP, CO, CI - Last Documented Arterial Blood Pressure 86/34 - Labs CBC & Chem 7: 01/19/17 05:00 01/19/17 05:00 Labs: Abnormal Lab Results - Last 24 Hours (Table) 01/18/17 01/18/17 01/19/17 Range/Units 12:25 18:21 00:11 RBC (3.80-5.40) m/uL Hgb (11.4-16.0) gm/dL Hct (34.0-46.0) % RDW (11.5-15.5) % Plt Count (150-450) k/uL Lymphocytes # (1.0-4.8) k/uL Sodium (137-145) mmol/L Chloride (98-107) mmol/L Carbon Dioxide (22-30) mmol/L BUN (7-17) mg/dL Glucose (74-99) mg/dL POC Glucose (mg/dL) 104 H 114 H 105 H (75-99) mg/dL Calcium (8.4-10.2) mg/dL 01/19/17 01/19/17 01/19/17 Range/Units 05:00 05:00 06:20 RBC 3.08 L (3.80-5.40) m/uL Hgb 8.8 L (11.4-16.0) gm/dL Hct 28.1 L (34.0-46.0) % RDW 15.7 H (11.5-15.5) % Plt Count 137 L (150-450) k/uL Lymphocytes # 0.8 L (1.0-4.8) k/uL Sodium 135 L (137-145) mmol/L Chloride 113 H (98-107) mmol/L Carbon Dioxide 19 L (22-30) mmol/L BUN 20 H (7-17) mg/dL Glucose 103 H (74-99) mg/dL POC Glucose (mg/dL) 124 H (75-99) mg/dL Calcium 7.8 L (8.4-10.2) mg/dL Microbiology - Last 24 Hours (Table) 01/15/17 21:30 Blood Culture - Preliminary Blood No Growth after 72 hours 01/12/17 12:10 Blood Culture - Final Blood No Growth after 144 hours
[2017-01-19 12:30] LABS: Glucose,Whole Blood 124 mg/dL (75-99)
--- NOTE | 2017-01-19 13:02 | P.PN ---
Subjective Principal diagnosis: Large bowel obstruction status post exploratory laparotomy and Gardiner's procedure with ureteral repair Patient seen and examined at bedside. She is mildly confused at this time. Nursing is at bedside during exam. She continues to have ostomy output. She is tolerating her nectar thick liquids. NG tube is in place with tube feeding as well. Objective - Vital Signs Vital signs: Vital Signs Temp 98.1 F 01/19/17 04:00 Pulse 72 01/19/17 11:35 Resp 14 01/19/17 07:00 BP 91/50 01/19/17 07:00 Pulse Ox 98 01/19/17 07:00 Intake & Output 01/18/17 01/19/17 01/19/17 18:59 06:59 18:59 Intake Total 1956 2190 150 Output Total 3185 6285 450 Balance -1229 -25 -300 Weight 79.2 kg 82.2 kg Intake: IV 456 1360 100 0.9 for pressure 6 10 Dextrose 5% in Water 1, 1000 100 000 ml @ 100 mls/hr IV . Q10H [facility] Rx#:[id number] Magnesium Sulfate-D5w Pmx 100 1 gm In Dextrose/Water 1 100ml.bag @ 100 mls/hr IVPB Q1H [facility] Rx#: [id number] Meropenem 1 gm In Sodium 100 100 Chloride 0.9% 100 ml @ 200 mls/hr IVPB Q8HR [facility] Rx#:[id number] Potassium Phosphate 10 50 mmol In Sodium Chloride 0 .9% 100 ml @ 50 mls/hr IV ONCE ONE Rx#:[id number] Sodium Chloride 0.45% 1, 200 000 ml @ 100 mls/hr IV . Q10H [facility] Rx#:[id number] Vancomycin 1,500 mg In 250 Sodium Chloride 0.9% 250 ml @ 125 mls/hr IVPB Q24H [facility] Rx#:[id number] Intake, IV Titration 900 Amount Dextrose 5% in Water 1, 900 000 ml @ 100 mls/hr IV . Q10H [facility] Rx#:[id number] Oral 130 50 Tube Feeding 470 750 50 Other 30 Output: Drainage 570 450 NG tube 90 Right Lower Abdomen 570 360 Urine 1615 865 150 Stool 800 600 300 Emesis 200 300 Other: Voiding Method Indwelling Catheter Indwelling Catheter ABP, PAP, CO, CI - Last Documented Arterial Blood Pressure 86/34 - Constitutional General appearance: Present: no acute distress - EENT Eyes: Present: EOMI, PERRLA ENT: Present: hearing grossly normal - Neck Details: Right sided central venous catheter in place Neck: Present: normal ROM. Absent: lymphadenopathy, stridor - Respiratory Details: No difficulty with respiration on nasal cannula - Gastrointestinal Gastrointestinal Comment(s): Soft, appropriate tenderness, nondistended, ostomy site pink and patent with output No rebound, no guarding, incision site clean dry and intact - Integumentary Integumentary: Present: normal turgor - Musculoskeletal Musculoskeletal: Present: generalized weakness - Psychiatric Psychiatric Comment(s): Mildly confused - Labs CBC & Chem 7: 01/19/17 05:00 01/19/17 05:00 Labs: Abnormal Lab Results - Last 24 Hours (Table) 01/18/17 01/19/17 01/19/17 Range/Units 18:21 00:11 05:00 RBC (3.80-5.40) m/uL Hgb (11.4-16.0) gm/dL Hct (34.0-46.0) % RDW (11.5-15.5) % Plt Count (150-450) k/uL Lymphocytes # (1.0-4.8) k/uL Sodium 135 L (137-145) mmol/L Chloride 113 H (98-107) mmol/L Carbon Dioxide 19 L (22-30) mmol/L BUN 20 H (7-17) mg/dL Glucose 103 H (74-99) mg/dL POC Glucose (mg/dL) 114 H 105 H (75-99) mg/dL Calcium 7.8 L (8.4-10.2) mg/dL 01/19/17 01/19/17 01/19/17 Range/Units 05:00 06:20 12:29 RBC 3.08 L (3.80-5.40) m/uL Hgb 8.8 L (11.4-16.0) gm/dL Hct 28.1 L (34.0-46.0) % RDW 15.7 H (11.5-15.5) % Plt Count 137 L (150-450) k/uL Lymphocytes # 0.8 L (1.0-4.8) k/uL Sodium (137-145) mmol/L Chloride (98-107) mmol/L Carbon Dioxide (22-30) mmol/L BUN (7-17) mg/dL Glucose (74-99) mg/dL POC Glucose (mg/dL) 124 H 124 H (75-99) mg/dL Calcium (8.4-10.2) mg/dL Microbiology - Last 24 Hours (Table) 01/15/17 21:30 Blood Culture - Preliminary Blood No Growth after 72 hours 01/12/17 12:10 Blood Culture - Final Blood No Growth after 144 hours Assessment and Plan (1) Large bowel obstruction Status: Acute Plan: Patient is progressing slowly. If continuing to tolerate nectar thick liquids we can remove the NG tube. Per nursing, speech therapy to reevaluate the patient today. Continue with physical therapy. Appreciate medical and intensive care recommendations.
[2017-01-19 17:37] LABS: Glucose,Whole Blood 103 mg/dL (75-99)
[2017-01-19] MEDS: VANCOMYCIN 1,500 MG in SODIUM CHLORIDE 0.9% 250 ML IVPB SCH (21:47)
[2017-01-19] MEDS ORDERED: IPRATROPIUM-ALBUTEROL 3 ML NEB INHALATION PRN (22:39)
--- NOTE | 2017-01-19 22:56 | PN ---
PROGRESS NOTE DATE OF SERVICE: 01/19/2017 REASON FOR FOLLOWUP: Abdominal sepsis. INTERVAL HISTORY: The patient is afebrile. She has been breathing comfortably. She is hemodynamically stable, not requiring any pressor support. No chest pain, shortness of breath or cough. Abdominal pain is improved. No diarrhea. EXAMINATION: Blood pressure 90/51 with a pulse of 90, temperature 98. GENERAL DESCRIPTION: An elderly female lying in bed in no distress. RESPIRATORY SYSTEM: Unlabored breathing. Clear to auscultation anteriorly. HEART: S1, S2. Regular rate and rhythm. ABDOMEN: Soft. No tenderness. LABS: Hemoglobin 8.8, white count of 6.3 with a BUN of 20, creatinine 0.68. Cultures remain to be negative. DIAGNOSTIC IMPRESSION AND PLAN: Patient with abdominal sepsis. The patient however, did have a obstructive sigmoid mass, status post diverting colostomy and repair of the left ureter. As no gram- positive has been grown, I will discontinue the vancomycin, keep the patient on meropenem and I will evaluate the patient and if continues to improve, hopefully will be able to finish therapy with oral antibiotics. Continue supportive care. MMODL / IJN: [id number] /
[2017-01-19] MEDS: ONDANSETRON 4 MG/2 ML VIAL IVP PRN (23:16)
[2017-01-20] MEDS: DEXTROSE 5% IN WATER 1,000 ML IV SCH ×2 (03:01→22:42)
[2017-01-20] MEDS: HEPARIN SODIUM,PORCINE 5,000 UNIT/ML 1 ML VIAL SQ SCH ×3 (03:05→20:14)
[2017-01-20 03:51] LABS: Glucose,Whole Blood 89 mg/dL (75-99)
--- NOTE | 2017-01-20 04:59 | PN ---
PROGRESS NOTE CHIEF COMPLAINT: Re-evaluation. HISTORY OF PRESENT ILLNESS: This is an 86-year-old female who is status post surgery for large bowel obstruction. The patient's pathology came back showing strictures and no malignancy. The patient is doing better. She has been off the ventilator with no respiratory distress. Her blood pressures are maintained without any hemodynamic support. She continues on IV fluids at 50 mL an hour. The patient has an NG tube. The patient is getting some tube feedings through that. She is also taking oral thickened liquids. The patient's NG tube is going to come out today. The patient will be evaluated by speech therapy and advance diet as possible. The patient otherwise is feeling better. She does have mild confusion. This is not uncommon for her. REVIEW OF SYSTEMS: NEURO: Denies any headaches, dizziness. PSYCH: No anxiety. CARDIAC: No chest pain, angina, palpitations. RESPIRATORY: Denies shortness of breath, cough. GI: Denies any nausea, vomiting. Does have abdominal pain, has a colostomy. Explained to patient that regarding the colostomy. Does have mild chronic lower extremity pain. CONSTITUTIONAL: No fever, chills. : Patient has an IDC. PHYSICAL EXAMINATION: A pleasant female who recognizes me promptly. She know she is in the hospital. She does exhibit some intermittent unusual conversation like there is a democrat going in the hospital. Vital signs revealed blood pressure was 86/47, respirations 20, pulse rate 91. HEENT: Normocephalic. NECK: No JVD. The patient has an NG tube in place. CHEST: Clear to auscultation with mild decreased effort. CARDIAC: Distant heart sounds. S1, S2 with no gallop. Systolic murmur 2/6 . Rhythm is irregularly irregular. ABDOMEN: Mildly tender. Bowel sounds active. Extremities reveal trace edema. NEUROLOGIC: Awake, alert, oriented x2. Moves both upper and lower extremities adequately. LAB ASSESSMENT: Hemoglobin 8.8. Sodium 135, chloride 113, BUN 20, creatinine 0.8. Glucose 103. Magnesium 1.6. Calcium 7.8. ASSESSMENT: 1. Status post small bowel obstruction surgery. 2. Anemia secondary to acute blood loss. 3. Chronic atrial fibrillation, rate controlled. 4. Decreased nutritional status. PLAN: Continue present medical regimen. The patient's NG tube will be removed and the patient will be started on oral feeds. Speech therapy today evaluate again regarding swallow. The patient's condition discussed with the patient. Prognosis guarded. The patient's spouse was informed regarding the pathology report. MMODL / IJN: [id number] /
[2017-01-20] MEDS: METOCLOPRAMIDE 5 MG/ML 2 ML VIAL IVP SCH (05:24)
[2017-01-20 05:30] LABS: Glucose,Whole Blood 93 mg/dL (75-99)
[2017-01-20] MEDS: INSULIN LISPRO (humaLOG) 300 UNIT/3 ML VIAL SQ SCH ×3 (05:33→18:21)
[2017-01-20] MEDS: SODIUM CHLORIDE 0.9% 1,000 ML IV SCH (07:06)
[2017-01-20] MEDS: LEVOFLOXACIN 500MG-D5W PMX 500 MG in DEXTROSE/WATER 1 100ML.BAG IVPB SCH (07:06)
[2017-01-20] MEDS: IPRATROPIUM-ALBUTEROL 3 ML NEB INHALATION SCH ×2 (08:26→11:39)
[2017-01-20] MEDS: MEROPENEM 1 GM in SODIUM CHLORIDE 0.9% 100 ML IVPB SCH ×2 (09:13→20:15)
[2017-01-20] MEDS: DIGOXIN 125 MCG TAB PO SCH (09:20)
[2017-01-20] MEDS: PANTOPRAZOLE 40 MG/10 ML VIAL IV SCH (09:20)
--- NOTE | 2017-01-20 10:29 | P.PN ---
Subjective Progress Note Date: 01/20/17 Mrs. Hollis is an 86-year-old female who presented with an obstructed bowel and subsequently underwent a colectomy with colostomy placement. She was intubated on pressors postoperatively. Today she is seen and examined on the third floor. She is sitting up in bed eating breakfast. She states she feels better but not 100%. She denies chest pain, shortness of breath, dizziness or palpitations. Yesterday her oral digoxin was resumed. Anticoagulation is still on hold pending surgical clearance. She remains in atrial fibrillation with a controlled ventricular response. Blood pressure 108/ 59 with a heart rate of 79. Lab values from yesterday BUS in , creatinine 0.8 , potassium 3.8, hemoglobin 8.8. Objective - Vital Signs Vital signs: Vital Signs Temp 98.7 F 01/20/17 03:04 Pulse 79 01/20/17 03:04 Resp 16 01/20/17 03:04 BP 108/59 01/20/17 03:04 Pulse Ox 100 01/20/17 03:04 Intake & Output 01/19/17 01/20/17 01/20/17 18:59 06:59 18:59 Intake Total 2160 1600 Output Total 2825 1140 Balance -665 460 Weight 82.2 kg Intake: IV 1200 1600 Dextrose 5% in Water 1, 1200 1600 000 ml @ 100 mls/hr IV . Q10H [facility] Rx#:[id number] Intake, IV Titration 300 Amount Magnesium Sulfate-D5w Pmx 100 1 gm In Dextrose/Water 1 100ml.bag @ 100 mls/hr IVPB Q1H [facility] Rx#: [id number] Meropenem 1 gm In Sodium 100 Chloride 0.9% 100 ml @ 200 mls/hr IVPB Q8HR [facility] Rx#:[id number] Potassium Chloride 10 meq 100 Lidocaine 2% Inj 10 mg In Sodium Chloride 0.9% 100 ml @ 100 mls/hr IV Q1HR [facility] Rx#:[id number] Oral 360 Tube Feeding 300 Output: Drainage 475 140 Right Lower Abdomen 475 140 Urine 950 1000 Stool 1400 Other: Voiding Method Indwelling Catheter Indwelling Catheter ABP, PAP, CO, CI - Last Documented Arterial Blood Pressure 105/37 - Exam GENERAL: Well-appearing, well-nourished and in no acute distress. LUNGS: Breath sounds clear to auscultation bilaterally. Respiration equal and unlabored. No wheezes, rales or rhonchi. HEART: Irregular rate and rhythm without murmurs, rubs or gallops. S1 and S2 heard. - Labs CBC & Chem 7: 01/19/17 05:00 01/19/17 05:00 Labs: Abnormal Lab Results - Last 24 Hours (Table) 01/19/17 01/19/17 Range/Units 12:29 17:35 POC Glucose (mg/dL) 124 H 103 H (75-99) mg/dL Microbiology - Last 24 Hours (Table) 01/15/17 21:30 Blood Culture - Preliminary Blood No Growth after 96 hours 01/18/17 14:50 Blood Culture - Preliminary Blood No Growth after 24 hours Assessment and Plan Plan: ASSESSMENT 1. Status post colostomy and repair of the left ureter post bowel obstruction 2. Chronic persistent atrial fibrillation 3. Hypotension, resolved 4. Renal failure, resolved 5. Prior history of hypertension, off treatment at this time PLAN Continue with current medical therapy. Eliquis should be restarted as soon as is acceptable per surgical team. This can be done by medical team. Please feel free to call us with any further questions or concerns. She should follow up with cardiology 2 weeks after discharge. Nurse Practitioner note has been reviewed, I agree with a documented findings and plan of care. Patient was seen and examined.
--- NOTE | 2017-01-20 10:48 | P.PN ---
Subjective Progress Note Date: 01/20/17 Principal diagnosis: Bowel obstruction status post colectomy and colostomy and left ureteral injury with repair, postop respiratory failure Progress note dated 01/16/2017 This is a 86-year-old female who remains on the ventilator. She was admitted on January 12 with small bowel obstruction and the subsequent day on January 13, she had an exploratory laparotomy and Gardiner's procedure colostomy and because of the left ureter injury she had that repaired. 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 Pathology on that is pending. Her surgeon was Dr. Woody and her primary doctor's Dr. Saldaña. The patient remains on the ventilator. She is on the assist control mode rate of 2010 of I' m 400 FiO2 30% and a PEEP of 5. Blood gases show a PaO2 of 137 a PaCO2 of 26 and a pH of 7.38. We then returned the FiO2 down to 25% and drop the time of I' m down to 350. In addition, the patient's on a saline IV at 100 mL an hour norepinephrine at 10 mcg/m propofol at 10 mics per kilogram per minute. There are no tube feeds as yet. The patient is starting to wake up. We will place her on PSV of 5 and CPAP of 5 and see if we can't move towards extubation. Progress note dated 01/17/2017 86-year-old female who was extubated from the ventilator yesterday. She was admitted on January 12 with a small bowel obstruction and on the subsequent day, had exploratory laparotomy and Gardiner's procedure with colostomy. She also sustained a left ureter injury at that time which was repaired. 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 Pathology as of yesterday was pending. Her surgeon is Dr. Woody. Her primary physician is Dr. Saldaña. Anyway, since extubation, she been somewhat lethargic. The patient was on a small dose of norepinephrine at 1 mcg/m. She is getting tube feeds with vital 20 with a goal of 30 mL an hour and she is also nasal O2 at 2 L and an IV appointment for 5 at 100 mL an hour. She is still a full code. We need to have that discussion with the family. I think her overall prognosis is poor and should she end up back on the ventilator, it's very likely she may not come off. I will talk to the daughter today when I see her. Progress note dated 01/19/2017 This is an 86-year-old female who was admitted back on January 12 with a small bowel obstruction. She had exploratory laparotomy on the subsequent day and had a Gardiner's procedure with colostomy. She also sustained a left ureter injury which was repaired. She had a large bowel mass and apparently is benign by pathology. Her surgeon is Dr. Woody. Her primary physician is Dr. Saldaña. Currently she is doing reasonably well. She is on an IV of D5W at 100 mL an hour getting tube feeds with vital 1.2 at 50 with a goal of 50. She's also getting oxygen at 2 L nasal cannula. Still weak. It is improving though. Probably can move out of the ICU. 01/20/2017 patient seen in follow-up on medical surgical floor. She is sitting up in bed receiving a nebulizer treatment. She is awake alert, in no acute distress. Her persistent cough has improved today. She is afebrile, hemodynamically stable. Nasal cannula with O2 saturations are on 100%. The oxygen can probably be further weaned. Find with her incentive spirometer. She is tolerating oral intake and she is currently on full liquid diet. She denies any significant incisional pain. SURYA drain in the right lower quadrant with small amount of serosanguineous drainage. Colostomy on the left side of the abdomen with small amounts of thin green output. She continues on IV D5W at 100, oral intake is improving, I'll recheck her lites and CBC today. Objective - Vital Signs Vital signs: Vital Signs Temp 98.7 F 01/20/17 03:04 Pulse 86 01/20/17 08:42 Resp 16 01/20/17 03:04 BP 108/59 01/20/17 03:04 Pulse Ox 100 01/20/17 03:04 Intake & Output 01/19/17 01/20/17 01/20/17 18:59 06:59 18:59 Intake Total 2160 1600 Output Total 2825 1140 Balance -665 460 Weight 82.2 kg Intake: IV 1200 1600 Dextrose 5% in Water 1, 1200 1600 000 ml @ 100 mls/hr IV . Q10H [facility] Rx#:[id number] Intake, IV Titration 300 Amount Magnesium Sulfate-D5w Pmx 100 1 gm In Dextrose/Water 1 100ml.bag @ 100 mls/hr IVPB Q1H [facility] Rx#: [id number] Meropenem 1 gm In Sodium 100 Chloride 0.9% 100 ml @ 200 mls/hr IVPB Q8HR [facility] Rx#:[id number] Potassium Chloride 10 meq 100 Lidocaine 2% Inj 10 mg In Sodium Chloride 0.9% 100 ml @ 100 mls/hr IV Q1HR [facility] Rx#:[id number] Oral 360 Tube Feeding 300 Output: Drainage 475 140 Right Lower Abdomen 475 140 Urine 950 1000 Stool 1400 Other: Voiding Method Indwelling Catheter Indwelling Catheter ABP, PAP, CO, CI - Last Documented Arterial Blood Pressure 105/37 - Exam Exam No acute distress, she seems a little lethargic and sleepy today. HEENT examinations unremarkable. Mucous membranes are moist. Neck supple. Full range of motion. No adenopathy or thyromegaly. Cardiovascular examination reveals regular rhythm rate. S1-S2 normal. No murmur. Lungs reveal relatively clear breath sounds. A few scattered rhonchi. No wheezes. No crackles. Abdomen soft bowel sounds are heard. Colostomy with small amount of green. SURYA drain with minimal amount of serosanguineous drainage.. Extremities are intact. No cyanosis clubbing or edema. Skin without rash. Neurologic examination is difficult to perform. - Labs CBC & Chem 7: 01/19/17 05:00 01/19/17 05:00 Labs: Abnormal Lab Results - Last 24 Hours (Table) 01/19/17 01/19/17 Range/Units 12:29 17:35 POC Glucose (mg/dL) 124 H 103 H (75-99) mg/dL Microbiology - Last 24 Hours (Table) 01/15/17 21:30 Blood Culture - Preliminary Blood No Growth after 96 hours 01/18/17 14:50 Blood Culture - Preliminary Blood No Growth after 24 hours Assessment and Plan Plan: Assessment and Plan Plan: Impression: 1 large bowel obstruction, status post colectomy with colostomy and left ureteral injury requiring repair postoperative day #5. 2 postoperative respiratory failure, requiring intubation and mechanical ventilation expected considering the surgery involved, extubated on 01/16/2017 3 history of chronic atrial fibrillation, controlled rate 4 history of benign essential hypertension 5 history of osteoarthritis 6 acute abdominal sepsis is suspected. Plan dated 01/20/2017 The patient continues to improve, encourage pulmonary toileting. Pathology was negative for malignancy. Tolerating oral intake. R repeat CBC and BMP today No additional recommendations are made. Likely the patient will need rehab. We'll continue to follow. I performed a history & physical examination of the patient and discussed their management with my nurse practitioner, Vandana Gaitan. I reviewed the nurse practitioner's note and agree with the documented findings and plan of care. Time with Patient: Less than 30
[2017-01-20 11:19] LABS: Anion Gap 3 mmol/L; Blood Urea Nitrogen 15 mg/dL (7-17); Calcium 7.8 mg/dL (8.4-10.2); Carbon Dioxide 20 mmol/L (22-30); Chloride 111 mmol/L (98-107); Glucose 112 mg/dL (74-99); Magnesium 1.6 mg/dL (1.6-2.3); Non-African American GFR(MDRD) >60 (>60 ml/min/1.73 sqM); Potassium 3.9 mmol/L (3.5-5.1); Sodium 134 mmol/L (137-145)
[2017-01-20 11:37] LABS: Basophils % (A) 0 %; CH 27.2; CHCM 29.6; Eosinophils # (A) 0.1 k/uL (0-0.7); Eosinophils % (A) 2 %; HCT 28.3 % (34.0-46.0); HDW 2.97; HGB 8.6 gm/dL (11.4-16.0); Hypochromasia Marked; Luc # (Auto) 0.13; Luc % (Auto) 3; Lymphocytes # (A) 0.7 k/uL (1.0-4.8); Lymphocytes % (A) 19 %; MCH 28.1 pg (25.0-35.0); MCHC 30.5 g/dL (31.0-37.0); MCV 92.1 fL (80.0-100.0); Mean Platelet Volume 8.8; Monocytes # (A) 0.2 k/uL (0-1.0); Monocytes % (A) 5 %; Neutrophils # (A) 2.8 k/uL (1.3-7.7); Neutrophils % (A) 71 %; RBC 3.07 m/uL (3.80-5.40); RDW 15.7 % (11.5-15.5)
[2017-01-20 11:50] LABS: Glucose,Whole Blood 105 mg/dL (75-99)
[2017-01-20] MEDS ORDERED: DEXTROSE 5% IN WATER 1,000 ML IV ONE (12:40)
[2017-01-20] MEDS: HYDROmorphone 1 MG/ML 1 ML SYRINGE IVP PRN (13:56)
--- NOTE | 2017-01-20 15:54 | P.PN ---
Subjective Progress Note Date: 01/20/17 Principal diagnosis: Large bowel obstruction status post exploratory laparotomy and Gardiner's procedure with ureteral repair Patient seen and examined at bedside. Her daughter is present at bedside. She states she is doing very well and is in good spirits. Her ostomy is functioning and urostomy is functioning. SURYA drain is in place. She is tolerating a soft diet. She also is taking protein supplements. Objective - Vital Signs Vital signs: Vital Signs Temp 98.2 F 01/20/17 15:00 Pulse 90 01/20/17 15:00 Resp 16 01/20/17 15:00 BP 91/56 01/20/17 15:00 Pulse Ox 99 01/20/17 15:00 Intake & Output 01/19/17 01/20/17 01/20/17 18:59 06:59 18:59 Intake Total 2160 1600 Output Total 2825 1140 1320 Balance -665 460 -1320 Weight 82.2 kg 82.2 kg Intake: IV 1200 1600 Dextrose 5% in Water 1, 1200 1600 000 ml @ 100 mls/hr IV . Q10H [facility] Rx#:[id number] Intake, IV Titration 300 Amount Magnesium Sulfate-D5w Pmx 100 1 gm In Dextrose/Water 1 100ml.bag @ 100 mls/hr IVPB Q1H [facility] Rx#: [id number] Meropenem 1 gm In Sodium 100 Chloride 0.9% 100 ml @ 200 mls/hr IVPB Q8HR [facility] Rx#:[id number] Potassium Chloride 10 meq 100 Lidocaine 2% Inj 10 mg In Sodium Chloride 0.9% 100 ml @ 100 mls/hr IV Q1HR [facility] Rx#:[id number] Oral 360 Tube Feeding 300 Output: Drainage 475 140 70 Right Lower Abdomen 475 140 70 Urine 950 1000 1000 Stool 1400 250 Other: Voiding Method Indwelling Catheter Indwelling Catheter Indwelling Catheter ABP, PAP, CO, CI - Last Documented Arterial Blood Pressure 105/37 - Constitutional General appearance: Present: cooperative, no acute distress - EENT Eyes: Present: EOMI, PERRLA ENT: Present: hearing grossly normal - Neck Details: Right IJ triple-lumen catheter in place Neck: Present: normal ROM. Absent: lymphadenopathy, stridor - Respiratory Details: No difficulty with respiration - Gastrointestinal Gastrointestinal Comment(s): Soft, nontender, nondistended, ostomy pink and patent, SURYA drain in place, incision site clean dry and intact - Integumentary Integumentary: Present: normal turgor - Musculoskeletal Musculoskeletal: Present: generalized weakness - Psychiatric Psychiatric: Present: A&O x's 3, appropriate affect - Labs CBC & Chem 7: 01/20/17 08:59 01/20/17 08:59 Labs: Abnormal Lab Results - Last 24 Hours (Table) 01/19/17 01/20/17 01/20/17 Range/Units 17:35 08:59 08:59 RBC 3.07 L (3.80-5.40) m/uL Hgb 8.6 L (11.4-16.0) gm/dL Hct 28.3 L (34.0-46.0) % MCHC 30.5 L (31.0-37.0) g/dL RDW 15.7 H (11.5-15.5) % Plt Count 146 L (150-450) k/uL Lymphocytes # 0.7 L (1.0-4.8) k/uL Sodium 134 L (137-145) mmol/L Chloride 111 H (98-107) mmol/L Carbon Dioxide 20 L (22-30) mmol/L Glucose 112 H (74-99) mg/dL POC Glucose (mg/dL) 103 H (75-99) mg/dL Calcium 7.8 L (8.4-10.2) mg/dL 01/20/17 Range/Units 11:48 RBC (3.80-5.40) m/uL Hgb (11.4-16.0) gm/dL Hct (34.0-46.0) % MCHC (31.0-37.0) g/dL RDW (11.5-15.5) % Plt Count (150-450) k/uL Lymphocytes # (1.0-4.8) k/uL Sodium (137-145) mmol/L Chloride (98-107) mmol/L Carbon Dioxide (22-30) mmol/L Glucose (74-99) mg/dL POC Glucose (mg/dL) 105 H (75-99) mg/dL Calcium (8.4-10.2) mg/dL Microbiology - Last 24 Hours (Table) 01/15/17 21:30 Blood Culture - Preliminary Blood No Growth after 96 hours 01/18/17 14:50 Blood Culture - Preliminary Blood No Growth after 24 hours Assessment and Plan (1) Large bowel obstruction Status: Acute Plan: Patient is progressing slowly. Continue soft diet and protein supplements. Continue PT for strength regained. Continue medical management.
[2017-01-20] MEDS: MAGNESIUM SULFATE-D5W PMX 1 GM in DEXTROSE/WATER 1 100ML.BAG IVPB SCH ×2 (16:11→17:39)
[2017-01-20 18:30] LABS: Glucose,Whole Blood 100 mg/dL (75-99)
--- NOTE | 2017-01-20 19:03 | PN ---
PROGRESS NOTE CHIEF COMPLAINT: This 86-year-old female was admitted to the hospital with bowel obstruction in the sigmoid area. The patient has undergone resection of that area. 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 The patient has no evidence of malignancy. She had significant hypotension post surgery. She has continued on antibiotics. She is doing better though has still complains of some malaise. Denies much pain. REVIEW OF SYSTEMS: NEURO: Denies any headaches, dizziness. PSYCH: No anxiety. CARDIAC: No chest pain, angina, palpitation. RESPIRATORY: No shortness of breath, cough. GI: No nausea, vomiting. Appetite fair. Was started on soft diet yesterday after removing NG tube. Patient is able to swallow without difficulty. She is able to swallow water without difficulty. Some abdominal pain. No diarrhea. Had the colostomy with fairly loose stool which is greenish. : Denies symptoms. Has IDC. EXTREMITIES: Pain in the knee joints. The patient does have some edema in lower extremities. CONSTITUTIONAL: No fever, chills. PHYSICAL EXAMINATION: Pleasant female, at present in no distress. Vital signs reveal temperature 98.5, pulse 80 and irregular, respirations 18, blood pressure 90/55. HEENT: Normocephalic. NECK: Supple. No JVD. CHEST: Clear to auscultation with mild decrease in air flow at the bases. Patient has a central line on the right side. CARDIAC: Distant heart sounds, S1, S2 with no gallops. Systolic murmur 2/6, left sternal border. Irregularly irregular rhythm. ABDOMEN: Tender. Bowel sounds active in all 4 quadrants. Incisions seem dry. SURYA site is dry. Patient's colostomy is functioning. Extremities reveal edema 1 to 2+ in the thigh area. Mostly dependent edema. Neurologically awake, alert. More alert today. Less confused today. Moves both upper and lower extremities well. LABORATORY ASSESSMENT: Hemoglobin of 8.6, white count 4.0. Sodium 134, chloride 111, CO2 content 20, BUN 15, creatinine 0.72. Glucose 112. ASSESSMENT: 1. Chronic atrial fibrillation, rate controlled. 2. Anemia secondary to acute blood loss, stable. 3. Status post bowel surgery for sigmoid colon obstruction. 4. History of diabetes mellitus. 5. Decreased nutritional status. 6. Degenerative arthritis, lower extremities, with decreased mobility. PLAN: Continue present medical regimen. Patient has been started on soft liquid. Will add Ensure to her supplement. Encourage increased intake. The patient to be started ambulating. The patient was hesitant about going to a nursing facility for rehab. Will discuss with the primary tomorrow. Meanwhile, continue present regimen. CEE / LUDMILA: [id number] /
--- NOTE | 2017-01-20 23:54 | PN ---
PROGRESS NOTE DATE OF SERVICE: 01/20/2017. REASON FOR FOLLOWUP: Abdominal wound infection. INTERVAL HISTORY: The patient is afebrile. She has been breathing comfortably. She is more awake and alert. Denies any chest pain or shortness of breath or cough. No nausea, vomiting, diarrhea. PHYSICAL EXAMINATION: Blood pressure 91/56 with a pulse of 90, temperature 98.2. She is 99% on room air. General description is an elderly female lying in bed in no distress. Respiratory system unlabored breathing. Clear to auscultation anteriorly. Heart S1, S2 regular rate and rhythm. ABDOMEN: Soft, no tenderness. LABS: Hemoglobin 8.6, white count 4.0 with a BUN of 15, creatinine 0.72. Wound culture has been negative. DIAGNOSTIC IMPRESSION AND PLAN: Patient with abdominal wall abscess. The patient did have a obstructive sigmoid colon status post diverting colostomy and repair of the left ureter. The patient did have persistent hypertension when she was on Zosyn and she was switched to meropenem with the patient doing well so far. Blood cultures are negative. Hopefully will be able to finish therapy with oral antibiotics. RN has been advised to remove the right IJ to decrease risk of line sepsis. The family was present at bedside. Their questions were answered. MMODL / IJN: [id number] / TIMI
[2017-01-20 23:56] LABS: Glucose,Whole Blood 105 mg/dL (75-99)
[2017-01-21] MEDS: INSULIN LISPRO (humaLOG) 300 UNIT/3 ML VIAL SQ SCH ×4 (02:49→18:05)
[2017-01-21] MEDS: HEPARIN SODIUM,PORCINE 5,000 UNIT/ML 1 ML VIAL SQ SCH (03:40)
[2017-01-21 05:54] LABS: Glucose,Whole Blood 106 mg/dL (75-99)
[2017-01-21] MEDS: METOCLOPRAMIDE 5 MG/ML 2 ML VIAL IVP SCH (07:16)
[2017-01-21] MEDS: DIGOXIN 125 MCG TAB PO SCH (09:01)
[2017-01-21] MEDS: PANTOPRAZOLE 40 MG/10 ML VIAL IV SCH (09:01)
[2017-01-21] MEDS: MEROPENEM 1 GM in SODIUM CHLORIDE 0.9% 100 ML IVPB SCH ×2 (09:01→20:19)
--- NOTE | 2017-01-21 13:10 | PN ---
PROGRESS NOTE ATTENDING PHYSICIAN: Dr. Woody. CONSULTING PHYSICIAN: Dr. Kamran Saldaña. CHIEF COMPLAINT: Re-evaluation. HISTORY OF PRESENT ILLNESS: 86-year-old female who is status post surgery for a bowel obstruction. The patient has colostomy. She is doing relatively well. REVIEW OF SYSTEMS: Neuro: Denies any headaches, dizziness. Psych: No anxiety. Cardiac: No chest pain, angina, palpitation. Respiratory: Denies shortness of breath, cough. GI: No nausea, vomiting, poor appetite. No abdominal pain. No diarrhea. Has a colostomy. : has an IDC. EXTREMITIES: No pain. Constitutional: No fever or chills. PHYSICAL EXAMINATION: Pleasant female in no distress. Vital signs reveals temperature 97.6, pulse 73, respirations 14, blood pressure 134/66, pulse ox 96% on 2 L. HEENT: Normocephalic. NECK: Supple. No JVD. CHEST: Clear to auscultation. Cardiac: Normal S1, S2 with no gallops. Irregularly, irregular rhythm. Rate controlled. Systolic murmur 2/6 left sternal border. Abdomen mild tenderness, but improved. Bowel sounds active. Extremities reveal 1+ edema. Neurological awake, alert, oriented with well-coordinated movements both upper and lower extremities. LAB ASSESSMENT: Blood sugars which are in the normal range. Dig level of 0.9. ASSESSMENT: 1. Status post bowel surgery for bowel obstruction. 2. Colostomy status. 3. Chronic atrial fibrillation, rate controlled. 4. Degenerative arthritis, in the knees with decreased mobility. PLAN: The patient is stable. Continue present medical regimen. Patient's condition discussed with the patient and also discussed with the daughter. They are going to try and make some arrangements this coming week with a decision whether to go to a nursing facility, which is being advised whether to take her home. The patient's general condition is guarded. Prognosis guarded. We will add Megace to see if they will help with her appetite. Meanwhile, the patient will be advanced to regular diet. MMODL / IJN: [id number] /
[2017-01-21 13:44] LABS: Glucose,Whole Blood 128 mg/dL (75-99)
--- NOTE | 2017-01-21 15:00 | P.PN ---
Subjective Progress Note Date: 01/21/17 Large bowel obstruction status post exploratory laparotomy and Gardiner's procedure with ureteral repair Patient seen and examined at bedside. Her daughter is present at bedside. She states she is doing very well and is in good spirits. Her ostomy is functioning and urostomy is functioning. SURYA drain is in place. She is tolerating a soft diet. She also is taking protein supplements. Objective - Vital Signs Vital signs: Vital Signs Temp 97.6 F 01/21/17 07:00 Pulse 73 01/21/17 07:00 Resp 14 01/21/17 07:00 BP 134/66 01/21/17 07:00 Pulse Ox 96 01/21/17 07:00 Intake & Output 01/20/17 01/21/17 01/21/17 18:59 06:59 18:59 Intake Total 1200 992 Output Total 1760 1785 90 Balance -1760 -585 902 Weight 82.2 kg 102 kg Intake: IV 1100 Dextrose 5% in Water 1, 1100 000 ml @ 100 mls/hr IV . Q10H [facility] Rx#:[id number] Intake, IV Titration 100 400 Amount Dextrose 5% in Water 1, 400 000 ml @ 50 mls/hr IV . Q20H [facility] Rx#:[id number] Meropenem 1 gm In Sodium 100 Chloride 0.9% 100 ml @ 200 mls/hr IVPB Q12HR [facility] Rx#:[id number] Oral 592 Output: Drainage 260 160 90 Right Lower Abdomen 260 160 90 Urine 1150 1225 Stool 350 400 Other: Voiding Method Indwelling Catheter Indwelling Catheter Indwelling Catheter ABP, PAP, CO, CI - Last Documented Arterial Blood Pressure 105/37 - Constitutional General appearance: Present: average body habitus, cooperative - Respiratory Details: Nonlabored - Cardiovascular Rhythm: regular - Gastrointestinal Gastrointestinal Comment(s): Soft nondistended nontender ostomies pink and patent. - Psychiatric Psychiatric: Present: A&O x's 3 - Labs CBC & Chem 7: 01/20/17 08:59 01/20/17 08:59 Labs: Abnormal Lab Results - Last 24 Hours (Table) 01/20/17 01/20/17 01/21/17 Range/Units 18:08 23:54 05:52 POC Glucose (mg/dL) 100 H 105 H 106 H (75-99) mg/dL 01/21/17 Range/Units 13:41 POC Glucose (mg/dL) 128 H (75-99) mg/dL Microbiology - Last 24 Hours (Table) 01/15/17 21:30 Blood Culture - Preliminary Blood No Growth after 120 hours 01/18/17 14:50 Blood Culture - Preliminary Blood No Growth after 48 hours Assessment and Plan Plan: Patient is progressing slowly. Continue soft diet and protein supplements. Continue PT for strength regained. Continue medical management.
[2017-01-21 17:50] LABS: Glucose,Whole Blood 113 mg/dL (75-99)
[2017-01-21] MEDS: MEGESTROL 400 MG/10 ML CUP PO SCH (20:22)
[2017-01-21] MEDS: APIXABAN 2.5 MG TABLET PO SCH (20:22)
[2017-01-21 20:28] LABS: Glucose,Whole Blood 110 mg/dL (75-99)
[2017-01-21] MEDS: DEXTROSE 5%-0.45% NACL 1,000 ML IV SCH (22:52)
[2017-01-21 23:47] LABS: Glucose,Whole Blood 105 mg/dL (75-99)
[2017-01-22] MEDS: INSULIN LISPRO (humaLOG) 300 UNIT/3 ML VIAL SQ SCH ×4 (00:51→19:09)
[2017-01-22 05:12] LABS: Glucose,Whole Blood 100 mg/dL (75-99)
[2017-01-22 07:21] LABS: Anion Gap 3 mmol/L; Blood Urea Nitrogen 14 mg/dL (7-17); Calcium 8.5 mg/dL (8.4-10.2); Carbon Dioxide 23 mmol/L (22-30); Chloride 108 mmol/L (98-107); Glucose 84 mg/dL (74-99); Non-African American GFR(MDRD) >60 (>60 ml/min/1.73 sqM); Potassium 3.8 mmol/L (3.5-5.1); Sodium 134 mmol/L (137-145)
[2017-01-22] MEDS: DIGOXIN 125 MCG TAB PO SCH (08:04)
[2017-01-22] MEDS: APIXABAN 2.5 MG TABLET PO SCH ×2 (08:04→21:41)
[2017-01-22] MEDS: MEGESTROL 400 MG/10 ML CUP PO SCH ×2 (08:04→21:41)
[2017-01-22] MEDS: PANTOPRAZOLE 40 MG/10 ML VIAL IV SCH (08:04)
[2017-01-22] MEDS: MEROPENEM 1 GM in SODIUM CHLORIDE 0.9% 100 ML IVPB SCH ×2 (08:08→21:39)
--- NOTE | 2017-01-22 11:06 | P.PN ---
Subjective Progress Note Date: 01/22/17 Principal diagnosis: Large bowel obstruction This 86-year-old female status post bowel obstruction surgery. Has a colostomy. The patient complains of generalized malaise. Reports appetite. The patient has had otherwise stable vital signs stable renal function. The patient is on a regular diet as tolerated. She's had no fever or chills. She does have history of hypertension and blood pressures have been running on the lower side. The patient has postsurgical anemia with no symptoms history of chronic atrial fibrillation with controlled heart rate. Patient's also been started on Eliquis yesterday. No evidence of any bleeding REVIEW OF SYSTEMS: Neuro: Denies any headaches dizziness. Psych: Denies anxiety depression feels oriented. Cardiac: Denies chest pain and angina palpitations. Respiratory: Denies shortness of breath cough. GI: Denies any nausea vomiting poor appetite colostomy functioning : Denies dysuria hematuria. Extremities: Chronic knee pain Skin: Intact. Constitutional: No fever, chills. Objective - Vital Signs Vital signs: Vital Signs Temp 98.6 F 01/22/17 07:00 Pulse 88 01/22/17 08:00 Resp 14 01/22/17 08:00 BP 94/62 01/22/17 07:00 Pulse Ox 100 01/22/17 07:00 Intake & Output 01/21/17 01/22/17 01/22/17 18:59 06:59 18:59 Intake Total 1229 Output Total 170 1495 400 Balance 1059 -1495 -400 Weight 98 kg Intake: Intake, IV Titration 400 Amount Dextrose 5% in Water 1, 400 000 ml @ 50 mls/hr IV . Q20H [facility] Rx#:[id number] Oral 829 Output: Drainage 170 145 Right Lower Abdomen 170 145 Urine 1350 Stool 400 Other: Voiding Method Indwelling Catheter Indwelling Catheter Indwelling Catheter ABP, PAP, CO, CI - Last Documented Arterial Blood Pressure 105/37 PHYSICAL EXAMINATION: Cooperative, at present in no acute distress. HEENT: Neck supple. No JVD. Chest: Clear to auscultation Cardiac: Normal S1-S2, irregularly irregular with rate controlled no gallops systolic murmur 2 x 6 left sternal border. Abdomen: Minimally tender bowel sounds present. Extremities: Trace edema no tenderness Neurologically: Awake, alert, oriented with well-coordinated movements. - Labs CBC & Chem 7: 01/20/17 08:59 01/22/17 06:23 Labs: Abnormal Lab Results - Last 24 Hours (Table) 01/21/17 01/21/17 01/21/17 Range/Units 13:41 17:49 20:04 Sodium (137-145) mmol/L Chloride (98-107) mmol/L POC Glucose (mg/dL) 128 H 113 H 110 H (75-99) mg/dL 01/21/17 01/22/17 01/22/17 Range/Units 23:45 05:10 06:23 Sodium 134 L (137-145) mmol/L Chloride 108 H (98-107) mmol/L POC Glucose (mg/dL) 105 H 100 H (75-99) mg/dL Microbiology - Last 24 Hours (Table) 01/15/17 21:30 Blood Culture - Final Blood No Growth after 144 hours 01/18/17 14:50 Blood Culture - Preliminary Blood No Growth after 72 hours Assessment and Plan Plan: ASSESSMENT: 1. [Chronic atrial fibrillation rate controlled]. 2. [Decreased appetite and decreased nutritional status]. 3. [Debility]. 4. [Status post colon surgery]. 5. [Anemia secondary to acute blood loss]. PLAN: [Continue present medical regimen patient's condition discussed with the patient and encouraged intake. Patient does drink some ensure. Advised some solids as well be consumed].
[2017-01-22 12:22] LABS: Glucose,Whole Blood 137 mg/dL (75-99)
--- NOTE | 2017-01-22 14:05 | P.PN ---
Subjective Progress Note Date: 01/22/17 Large bowel obstruction status post exploratory laparotomy and Gardiner's procedure with ureteral repair Patient seen and examined at bedside. Her daughter is present at bedside. She states she is doing very well and is in good spirits. Her ostomy is functioning and urostomy is functioning. SURYA drain is in place. She is tolerating a soft diet. She also is taking protein supplements. Objective - Vital Signs Vital signs: Vital Signs Temp 98.6 F 01/22/17 07:00 Pulse 88 01/22/17 08:00 Resp 14 01/22/17 08:00 BP 94/62 01/22/17 07:00 Pulse Ox 100 01/22/17 07:00 Intake & Output 01/21/17 01/22/17 01/22/17 18:59 06:59 18:59 Intake Total 1229 Output Total 170 1495 470 Balance 1059 -1495 -470 Weight 98 kg Intake: Intake, IV Titration 400 Amount Dextrose 5% in Water 1, 400 000 ml @ 50 mls/hr IV . Q20H ONE Rx#:[id number] Oral 829 Output: Drainage 170 145 70 Right Lower Abdomen 170 145 70 Urine 1350 Stool 400 Other: Voiding Method Indwelling Catheter Indwelling Catheter Indwelling Catheter ABP, PAP, CO, CI - Last Documented Arterial Blood Pressure 105/37 - Constitutional General appearance: Present: cooperative - Respiratory Details: Nonlabored breathing - Gastrointestinal Gastrointestinal Comment(s): Soft nontender nondistended stool in ostomy bag ostomy pink patent urostomy patent. SURYA drain serous - Psychiatric Psychiatric: Present: A&O x's 3 - Labs CBC & Chem 7: 01/20/17 08:59 01/22/17 06:23 Labs: Abnormal Lab Results - Last 24 Hours (Table) 01/21/17 01/21/17 01/21/17 Range/Units 17:49 20:04 23:45 Sodium (137-145) mmol/L Chloride (98-107) mmol/L POC Glucose (mg/dL) 113 H 110 H 105 H (75-99) mg/dL 01/22/17 01/22/17 01/22/17 Range/Units 05:10 06:23 12:18 Sodium 134 L (137-145) mmol/L Chloride 108 H (98-107) mmol/L POC Glucose (mg/dL) 100 H 137 H (75-99) mg/dL Microbiology - Last 24 Hours (Table) 01/15/17 21:30 Blood Culture - Final Blood No Growth after 144 hours 01/18/17 14:50 Blood Culture - Preliminary Blood No Growth after 72 hours Assessment and Plan Plan: Patient is progressing slowly. Continue soft diet and protein supplements. Continue PT for strength regained. Continue medical management.
[2017-01-22] MEDS: ACETAMINOPHEN TAB 325 MG TAB PO PRN ×2 (14:47→21:40)
[2017-01-22] MEDS: DEXTROSE 5%-0.45% NACL 1,000 ML IV SCH (16:38)
[2017-01-22 19:14] LABS: Glucose,Whole Blood 107 mg/dL (75-99)
[2017-01-23 01:39] LABS: Glucose,Whole Blood 115 mg/dL (75-99)
[2017-01-23] MEDS: INSULIN LISPRO (humaLOG) 300 UNIT/3 ML VIAL SQ SCH ×4 (01:51→20:49)
[2017-01-23] MEDS: DEXTROSE 5%-0.45% NACL 1,000 ML IV SCH (01:51)
[2017-01-23 05:18] LABS: Glucose,Whole Blood 95 mg/dL (75-99)
--- NOTE | 2017-01-23 07:09 | PN ---
PROGRESS NOTE DATE OF SERVICE: 01/22/2017 REASON FOR FOLLOWUP: Abdominal infection post laparotomy. INTERVAL HISTORY: The patient is afebrile. She is breathing comfortably. Denies any chest pain or shortness of breath or cough. Abdominal pain is currently controlled. No nausea, vomiting or any diarrhea. PHYSICAL EXAMINATION: On examination, blood pressure is 99/65 with a pulse of 85, temperature of 98.2. She is 95% on 2 L nasal cannula. General description is an elderly female, lying in bed, in no distress. RESPIRATORY SYSTEM: Unlabored breathing, clear to auscultation anteriorly. HEART: S1, S2. Regular rate and rhythm. ABDOMEN: Soft, no tenderness. LABS: BUN 14, creatinine 0.80. DIAGNOSTIC IMPRESSION AND PLAN: Patient with some abdominal sepsis in a patient who did have evidence of a bowel obstruction, status post laparotomy and diverting colostomy. The patient so far culture negative for resistant pathogen. Her white count is normal. Antibiotic was switched to a short course of oral Augmentin. Discontinue the meropenem. Continue supportive care. MMODL / IJN: [id number] /
[2017-01-23] MEDS: APIXABAN 2.5 MG TABLET PO SCH ×2 (08:57→22:17)
[2017-01-23] MEDS: DIGOXIN 125 MCG TAB PO SCH (08:57)
[2017-01-23] MEDS: MEGESTROL 400 MG/10 ML CUP PO SCH ×2 (08:57→22:17)
[2017-01-23] MEDS: PANTOPRAZOLE 40 MG/10 ML VIAL IV SCH (08:59)
[2017-01-23] MEDS ORDERED: AMOXIC-POT CLAV 875-125MG 1 EACH TAB PO SCH (09:00)
[2017-01-23] MEDS: ACETAMINOPHEN TAB 325 MG TAB PO PRN (11:28)
[2017-01-23] MEDS: SODIUM FERRIC GLUCONAT-SUCROSE 125 MG in SODIUM CHLORIDE 0.9% 100 ML IVPB SCH (11:28)
[2017-01-23 11:50] VITALS: BMI 42.7
[2017-01-23 12:01] LABS: Glucose,Whole Blood 101 mg/dL (75-99)
--- NOTE | 2017-01-23 16:17 | P.PN ---
Subjective Principal diagnosis: Large bowel obstruction, status post colon resection with colostomy The patient is slowly improving. She still not eating well. She will drink for supplements when encouraged. The daughter feels part of her problem is that her mother's false teeth are missing. She is not ambulating or getting out of bed much. The ostomy is working well. Objective - Vital Signs Vital signs: Vital Signs Temp 98.2 F 01/23/17 15:00 Pulse 74 01/23/17 15:00 Resp 16 01/23/17 15:00 BP 88/62 01/23/17 15:00 Pulse Ox 98 01/23/17 15:00 Intake & Output 01/22/17 01/23/17 01/23/17 18:59 06:59 18:59 Intake Total 100 Output Total 1195 1230 580 Balance -1195 -1130 -580 Weight 102.5 kg 102.5 kg Intake: Intake, IV Titration 100 Amount Meropenem 1 gm In Sodium 100 Chloride 0.9% 100 ml @ 200 mls/hr IVPB Q12HR [facility] Rx#:[id number] Output: Drainage 120 55 80 Right Lower Abdomen 120 55 80 Urine 325 1175 400 Uretheral (Martines) 400 Stool 750 100 Other: Voiding Method Indwelling Catheter Indwelling Catheter Indwelling Catheter ABP, PAP, CO, CI - Last Documented Arterial Blood Pressure 105/37 - Constitutional General appearance: Present: cooperative, no acute distress - Respiratory Respiratory: bilateral: CTA - Gastrointestinal General gastrointestinal: Present: normal bowel sounds, soft. Absent: distended , tenderness Localized gastrointestinal: surgical scar: diffuse (Incision is healing well. Ostomy is pink and viable. SURYA is serous.) - Labs CBC & Chem 7: 01/20/17 08:59 01/22/17 06:23 Labs: Abnormal Lab Results - Last 24 Hours (Table) 01/22/17 01/23/17 01/23/17 Range/Units 19:10 01:37 12:00 POC Glucose (mg/dL) 107 H 115 H 101 H (75-99) mg/dL Microbiology - Last 24 Hours (Table) 01/18/17 14:50 Blood Culture - Preliminary Blood No Growth after 96 hours Assessment and Plan (1) Large bowel obstruction Status: Resolved (2) Atrial fibrillation Status: Acute (3) Hypokalemia Status: Resolved (4) Hypomagnesemia syndrome Status: Resolved (5) Hypotensive episode Status: Acute (6) Renal failure syndrome Status: Acute (7) Diverticular disease of colon Status: Resolved (8) Dehydration Status: Resolved (9) Protein-calorie malnutrition, moderate Status: Acute Plan: Hospital personnel are attempting to find her missing teeth. Encourage oral supplement. Discontinue Martines catheter. Discontinue IV medication. Discontinue antibiotics since there is no source of infection. I think her hypotension and SIRS in the perioperative period was due to hypovolemia from the bowel obstruction. I think she'll be ready for rehab by mid week.
[2017-01-23] MEDS: traMADol 50 MG TAB PO PRN ×2 (16:59→22:31)
[2017-01-23 17:55] LABS: Glucose,Whole Blood 120 mg/dL (75-99)
--- NOTE | 2017-01-23 18:02 | XR ---
EXAMINATION TYPE: XR knee limited bilateral DATE OF EXAM: 01/23/2017 COMPARISON: NONE HISTORY: Bilateral knee pain TECHNIQUE: 4 views FINDINGS: There is severe narrowing of the medial joint spaces. There is bilateral genu varus deformi ty that is worse on the right side. There is bilateral narrowing of the patellofemoral joint spaces w ith spurring. I see no fracture. IMPRESSION: Severe osteoarthritis. No fracture seen.
[2017-01-24 00:06] LABS: Glucose,Whole Blood 86 mg/dL (75-99)
[2017-01-24] MEDS: INSULIN LISPRO (humaLOG) 300 UNIT/3 ML VIAL SQ SCH ×4 (00:57→18:15)
--- NOTE | 2017-01-24 05:30 | PN ---
PROGRESS NOTE DATE OF SERVICE: 01/23/2017 REASON FOR FOLLOWUP: Abdominal infection. INTERVAL HISTORY: The patient is afebrile. She is feeling better. Breathing comfortably. Denies any chest pain, shortness of breath or cough. No abdominal pain. No nausea, vomiting, or any diarrhea. PHYSICAL EXAMINATION: Blood pressure is 85/56 with a pulse of 74, temperature 98.2. She is 98% on room air. General description is an elderly female lying in bed in no distress. RESPIRATORY SYSTEM: Unlabored breathing. Clear to auscultation anteriorly. HEART: S1, S2. Regular rate and rhythm. ABDOMEN: Soft, no tenderness. LABS: No new labs have been obtained today. DIAGNOSTIC IMPRESSION AND PLAN: Patient with abdomen infection in the patient who did have a sigmoid obstruction status post laparotomy with diverting colostomy and repair of the ureteral injury. oral Augmentin for a short course. Repeat CBC and BMP tomorrow. Continue supportive care. MMODL / IJN: [id number] / MTDD
[2017-01-24 06:07] LABS: Glucose,Whole Blood 76 mg/dL (75-99)
--- NOTE | 2017-01-24 06:19 | PN ---
PROGRESS NOTE CHIEF COMPLAINT: Re-evaluation. HISTORY OF PRESENT ILLNESS: This is an 86-year-old female who was admitted to the hospital and undergone bowel obstruction surgery. The patient has a colostomy. REVIEW OF SYSTEMS: NEURO: Denies any headaches, dizziness. PSYCH: No anxiety. CARDIAC: No chest pain, angina, palpitation. RESPIRATORY: Denies shortness of breath, cough. GI: No nausea, vomiting, decreased appetite. Mild abdominal pain. No diarrhea with colostomy. : No symptoms. Has IDC. EXTREMITIES: Pain of the knee joints. CONSTITUTIONAL: No fever, chills. PHYSICAL EXAMINATION: Pleasant female at present in no distress. Vital signs reveals temperature 98.1, pulse 71, respirations 16, blood pressure 85/56. HEENT: Normocephalic. NECK: No JVD. CHEST: Clear to auscultation. CARDIAC: Normal S1, S2 with no gallops. Systolic murmur 2/6 left sternal border. ABDOMEN: Mild tenderness but no rebound tenderness. Bowel sounds active. Extremities reveal edema. NEUROLOGIC: Awake, alert, oriented to place, person. Moves both upper lower extremities fairly well. LAB ASSESSMENT: Accu-Cheks which are within normal limits. ASSESSMENT: 1. Status post bowel obstruction surgery. 2. Anemia secondary to acute blood loss. 3. Debility. 4. Decreased intake. 5. Acute on chronic renal failure, improved. PLAN: Continue present medical regimen. Patient's condition discussed with the patient. Prognosis guarded. Clarification from ID whether needs to continue vancomycin. The patient still has a colostomy. Further clarification from urology regarding catheter. Prognosis remains guarded. Condition discussed with the patient. Discharge planning working with patient and family. MMODL / IJN: [id number] /
[2017-01-24] MEDS: DIGOXIN 125 MCG TAB PO SCH (08:55)
[2017-01-24] MEDS: MEGESTROL 400 MG/10 ML CUP PO SCH ×2 (08:55→20:32)
[2017-01-24] MEDS: PANTOPRAZOLE 40 MG/10 ML VIAL IV SCH (08:55)
[2017-01-24] MEDS: APIXABAN 2.5 MG TABLET PO SCH ×2 (08:55→20:32)
[2017-01-24] MEDS: SODIUM FERRIC GLUCONAT-SUCROSE 125 MG in SODIUM CHLORIDE 0.9% 100 ML IVPB SCH (08:56)
[2017-01-24 11:59] LABS: Glucose,Whole Blood 102 mg/dL (75-99)
[2017-01-24 12:34] LABS: Anisocytosis Slight; Basophils % (A) 0 %; CH 27.1; CHCM 29.9; Eosinophils # (A) 0.1 k/uL (0-0.7); Eosinophils % (A) 1 %; HCT 28.2 % (34.0-46.0); HDW 2.82; HGB 8.6 gm/dL (11.4-16.0); Hypochromasia Marked; Luc # (Auto) 0.15; Luc % (Auto) 3; Lymphocytes # (A) 0.7 k/uL (1.0-4.8); Lymphocytes % (A) 13 %; MCH 27.7 pg (25.0-35.0); MCHC 30.3 g/dL (31.0-37.0); MCV 91.1 fL (80.0-100.0); Mean Platelet Volume 7.2; Monocytes # (A) 0.3 k/uL (0-1.0); Monocytes % (A) 5 %; Neutrophils # (A) 4.3 k/uL (1.3-7.7); Neutrophils % (A) 78 %; RBC 3.09 m/uL (3.80-5.40); RDW 16.1 % (11.5-15.5); WBC 5.6 k/uL (3.8-10.6); WBC (Perox) 5.47
[2017-01-24 12:58] LABS: Anion Gap 2 mmol/L; Blood Urea Nitrogen 20 mg/dL (7-17); Calcium 8.6 mg/dL (8.4-10.2); Carbon Dioxide 23 mmol/L (22-30); Chloride 108 mmol/L (98-107); Glucose 95 mg/dL (74-99); Non-African American GFR(MDRD) >60 (>60 ml/min/1.73 sqM); Potassium 4.7 mmol/L (3.5-5.1); Sodium 133 mmol/L (137-145)
--- NOTE | 2017-01-24 14:26 | P.PN ---
Subjective Progress Note Date: 01/24/17 Principal diagnosis: Large bowel obstruction, status post colon resection with colostomy The patient is eating small amounts. No nausea no vomiting. Ostomy is working well. Objective - Vital Signs Vital signs: Vital Signs Temp 97.9 F 01/24/17 07:00 Pulse 84 01/24/17 07:00 Resp 12 01/24/17 07:00 BP 103/59 01/24/17 07:00 Pulse Ox 96 01/24/17 07:00 Intake & Output 01/23/17 01/24/17 01/24/17 18:59 06:59 18:59 Output Total 730 320 Balance -730 -320 Weight 102.5 kg 101.5 kg Output: Drainage 80 120 Right Lower Abdomen 80 120 Urine 550 Uretheral (Martines) 550 Stool 100 200 Other: Voiding Method Indwelling Catheter Diaper Diaper # Voids 2 2 ABP, PAP, CO, CI - Last Documented Arterial Blood Pressure 105/37 - Constitutional General appearance: Present: cooperative, no acute distress - Gastrointestinal General gastrointestinal: Present: soft - Neurologic Neurologic Comment(s): Appears more alert today. Answering appropriately. - Labs CBC & Chem 7: 01/24/17 11:40 01/24/17 11:40 Labs: Abnormal Lab Results - Last 24 Hours (Table) 01/23/17 01/24/17 01/24/17 Range/Units 17:53 11:40 11:40 RBC 3.09 L (3.80-5.40) m/uL Hgb 8.6 L (11.4-16.0) gm/dL Hct 28.2 L (34.0-46.0) % MCHC 30.3 L (31.0-37.0) g/dL RDW 16.1 H (11.5-15.5) % Lymphocytes # 0.7 L (1.0-4.8) k/uL Sodium 133 L (137-145) mmol/L Chloride 108 H (98-107) mmol/L BUN 20 H (7-17) mg/dL POC Glucose (mg/dL) 120 H (75-99) mg/dL 01/24/17 Range/Units 11:49 RBC (3.80-5.40) m/uL Hgb (11.4-16.0) gm/dL Hct (34.0-46.0) % MCHC (31.0-37.0) g/dL RDW (11.5-15.5) % Lymphocytes # (1.0-4.8) k/uL Sodium (137-145) mmol/L Chloride (98-107) mmol/L BUN (7-17) mg/dL POC Glucose (mg/dL) 102 H (75-99) mg/dL Microbiology - Last 24 Hours (Table) 01/18/17 14:50 Blood Culture - Preliminary Blood No Growth after 120 hours Assessment and Plan (1) Large bowel obstruction Status: Resolved (2) Atrial fibrillation Status: Acute (3) Hypokalemia Status: Resolved (4) Hypomagnesemia syndrome Status: Resolved (5) Hypotensive episode Status: Acute (6) Renal failure syndrome Status: Acute (7) Diverticular disease of colon Status: Resolved (8) Dehydration Status: Resolved (9) Protein-calorie malnutrition, moderate Status: Acute Plan: The patient is clinically doing well. [facility] as a bed is available. I will see her in the office in one week for staple removal.
[2017-01-24 18:06] LABS: Glucose,Whole Blood 81 mg/dL (75-99)
--- NOTE | 2017-01-24 22:37 | PN ---
PROGRESS NOTE DATE OF SERVICE: 01/24/2017. REASON FOR FOLLOWUP: Abdominal infection. INTERVAL HISTORY: The patient is afebrile. He is breathing comfortably. Denies any chest pain or shortness of breath, cough. No abdominal pain. No nausea, vomiting or any diarrhea. PHYSICAL EXAMINATION: Blood pressure is 89/57 with a pulse of 76, temperature 98.1. GENERAL DESCRIPTION: An elderly female lying in bed in no distress. RESPIRATORY SYSTEM: Unlabored breathing. Clear to auscultation anteriorly. HEART: S1, S2. Regular rate and rhythm. ABDOMEN: Soft. No tenderness. LABS: Hemoglobin 8.6, white count 5.6 with a BUN of 20, creatinine 0.71. DIAGNOSTIC IMPRESSION AND PLAN: Patient with an abdominal infection. The patient admitted to the hospital with bowel obstruction, status post laparotomy and diverting colostomy. The patient seems to be clinically improving, currently on oral Augmentin. Will continue for about a week to finish course of therapy. Continue supportive care. MMODL / IJN: [id number] /
--- NOTE | 2017-01-24 23:19 | PN ---
PROGRESS NOTE CHIEF COMPLAINT: Re-evaluation. HISTORY OF PRESENT ILLNESS: This is an 86-year-old female who was admitted to the hospital with a large bowel obstruction. The patient has subsequently underwent surgery. She has a colostomy. The patient is doing relatively well. She has, however, generalized weakness, decreased activity, decreased intake. She does have a history of chronic atrial fibrillation, rate controlled. She is on Eliquis for embolization prevention. The patient also has a history of significant chronic degenerative arthritis of both knee joints. She has previously refused any kind of surgical interventions. REVIEW OF SYSTEMS: NEURO: Denies any headaches, dizziness. PSYCH: No anxiety. CARDIAC: Denies chest pain, angina, palpitation. RESPIRATORY: Denies shortness of breath, cough, hemoptysis. GI: No nausea, vomiting, decreased appetite. Minimal abdominal pain. No diarrhea. Does have a colostomy, functioning adequately. EXTREMITIES: Denies pain except for the knee joints. CONSTITUTIONAL: No fever, chills. PHYSICAL EXAMINATION: Pleasant female in no distress. Vital signs reveal temperature 97.9, pulse 84, respirations 12, blood pressure 103/59. It varies between 89/57 and 103/59. HEENT: Normocephalic. NECK: No JVD. CHEST: Clear to auscultation. CARDIAC: Normal S1, S2 with no gallops. Irregular rhythm. Rate controlled. Systolic murmur 2/6, left sternal border. ABDOMEN: Mildly tender. Bowel sounds active. Extremities reveal mild edema. No tenderness. NEUROLOGICALLY: Awake, alert, oriented with well-coordinated movements. LABORATORY ASSESSMENT: White count of 5.6, hemoglobin 8.9, platelets 265. Sodium was 133, potassium 4.7, chloride 108, CO2 content 23. BUN 20, creatinine 0.71. Glucose of 95. ASSESSMENT: 1. Chronic atrial fibrillation, rate controlled. 2. Status post bowel surgery. 3. Anemia secondary to acute blood loss. 4. Mild hyponatremia. 5. Degenerative arthritis of knee joints. 6. Debility. PLAN: The patient at present is stable. Continue present medical regimen. Patient discharge planning in process. MMODL / IJN: [id number] /
[2017-01-25 00:07] LABS: Glucose,Whole Blood 104 mg/dL (75-99)
[2017-01-25] MEDS: INSULIN LISPRO (humaLOG) 300 UNIT/3 ML VIAL SQ SCH ×3 (00:39→09:01)
[2017-01-25] MEDS: ACETAMINOPHEN TAB 325 MG TAB PO PRN (04:47)
[2017-01-25 05:20] LABS: Glucose,Whole Blood 93 mg/dL (75-99)
[2017-01-25 07:28] VITALS: PULSE 82; TEMP 99.8
[2017-01-25] MEDS: MEGESTROL 400 MG/10 ML CUP PO SCH (09:01)
[2017-01-25] MEDS: APIXABAN 2.5 MG TABLET PO SCH (09:01)
[2017-01-25] MEDS: DIGOXIN 125 MCG TAB PO SCH (09:01)
[2017-01-25] MEDS: SODIUM FERRIC GLUCONAT-SUCROSE 125 MG in SODIUM CHLORIDE 0.9% 100 ML IVPB SCH (09:54)
[2017-01-25] MEDS: traMADol 50 MG TAB PO PRN (11:00)
[2017-01-25 11:32] LABS: Glucose,Whole Blood 124 mg/dL (75-99)
[2017-01-25] MEDS ORDERED: methylPREDNISolone ACETATE 40 MG/ML 1 ML VIAL INTRAARTIC STA ×2 (12:39→12:55)
[2017-01-25] MEDS ORDERED: methylPREDNISolone ACETATE 80 MG/ML 1 ML VIAL INTRAARTIC STA (12:39)
[2017-01-25] MEDS ORDERED: LIDOCAINE 1% (PF) 10MG/ML VIAL INTRAARTIC STA (12:45)
[2017-01-25] MEDS ORDERED: LIDOCAINE 1% (PF) 10 MG/ML (30 ML SDV) INTRAARTIC STA (12:53)
--- NOTE | 2017-01-25 13:51 | P.CNOR ---
History of Present Illness - [facility] Consult date: 01/25/17 Requesting physician: Tono Quiroz Consult reason: joint pain (Bilateral knees) History of present illness: Patient is pleasant 86-year-old female seen at bedside this morning in consultation for bilateral knee pain. She's had chronic bilateral knee pain left equaling right. She denies any new or acute trauma to her knees. Pain worsens with range of motion and weightbearing as well as with squatting, stairs and climbing. She denies any erythema or ecchymoses at the knees. She denies any fever, chills, chest pain or shortness of breath. She denies calf pain, numbness, tingling, radicular symptoms or other. Review of Systems All systems: negative Constitutional: Denies chills, Denies fever Eyes: denies blurred vision, denies pain Ears, nose, mouth and throat: Denies headache, Denies sore throat Cardiovascular: Denies chest pain, Denies shortness of breath Respiratory: Denies cough Gastrointestinal: Denies abdominal pain, Denies diarrhea, Denies nausea, Denies vomiting Genitourinary: Denies dysuria, Denies hematuria Musculoskeletal: Denies myalgias Integumentary: Denies pruritus, Denies rash Neurological: Denies numbness, Denies weakness Psychiatric: Denies anxiety, Denies depression Endocrine: Denies fatigue, Denies weight change Past Medical History Past Medical History: Atrial Fibrillation, GERD/Reflux, Hyperlipidemia, Hypertension, Osteoarthritis (OA) Additional Past Medical History / Comment(s): varicose veins, arthritis, occasional back pain, diverticular disease, hiatal hernia History of Any Multi-Drug Resistant Organisms: None Reported Past Surgical History: Appendectomy, Cholecystectomy, Tonsillectomy Additional Past Surgical History / Comment(s): EGD/colonoscopy Past Anesthesia/Blood Transfusion Reactions: No Reported Reaction, Motion Sickness Past Psychological History: No Psychological Hx Reported Additional Psychological History / Comment(s): Pt resides with her spouse. Their son lives next door and 2 other children live near. She uses a cane or walker to ambulate. She drives. Smoking Status: Never smoker Past Alcohol Use History: None Reported Past Drug Use History: None Reported - Past Family History Father Family Medical History: Myocardial Infarction (AK) Additional Family Medical History / Comment(s): Father at the age of 62 yrs from a AK. Mother Family Medical History: No Reported History Additional Family Medical History / Comment(s): Mother was healthy and at the age of 89yrs. Medications and Allergies Home Medications Medication Instructions Recorded Confirmed Type Omeprazole [PriLOSEC] 20 mg PO AC-BRKFST 03/16/14 01/25/17 History Acetaminophen Tab [Tylenol] 500 mg PO Q6H PRN 01/12/17 01/12/17 History Apixaban [Eliquis] 2.5 mg PO BID 01/12/17 01/12/17 History traMADol HCl [Ultram] 50 mg PO Q6H PRN #20 tab 01/24/17 Rx Artificial Tears-Hypromellose 1 drops BOTH EYES Q4HR PRN bottle 01/25/17 Rx [Artificial Tear Drops] Digoxin [Lanoxin] 62.5 mcg PO DAILY #30 dose 01/25/17 Rx Megestrol [Megace] 400 mg PO BID #600 dose 01/25/17 Rx Allergies Allergy/AdvReac Type Severity Reaction Status Date / Time No Known Allergies Allergy Verified 01/12/17 12:23 Physical Examination Inspection of bilateral knee shows mild knee effusions. There is no erythema or ecchymoses. There is no bony deformity. There is normal patellar tracking with crepitation. She has pain with forced flexion to 90 bilaterally. She has near full extension bilaterally. Both knees are ligamentously stable with negative Berta's negative Sapna's. MCL and LCL are intact bilaterally. She has joint line tenderness at the medial and lateral aspects bilaterally. Negative apprehension. Neurovascular status intact with active motor and sensation to light touch intact throughout the lower extremities. 1+ dorsalis pedis pulses and less than 2 second cap refill is present. Both calves are soft and nontender. Results - Labs Labs: Abnormal Lab Results - Last 24 Hours (Table) 01/25/17 01/25/17 Range/Units 00:04 11:29 POC Glucose (mg/dL) 104 H 124 H (75-99) mg/dL Microbiology - Last 24 Hours (Table) 01/18/17 14:50 Blood Culture - Final Blood No Growth after 144 hours H & H 01/12/17 01/13/17 01/13/17 Range/Units 12:10 06:28 20:30 Hgb 11.5 10.0 L D 10.9 L (11.4-16.0) gm/dL Hct 36.8 32.6 L 34.9 (34.0-46.0) % 01/14/17 01/15/17 01/16/17 Range/Units 05:00 07:50 04:00 Hgb 11.7 10.4 L 10.1 L (11.4-16.0) gm/dL Hct 37.2 32.3 L 32.3 L (34.0-46.0) % 01/17/17 01/18/17 01/19/17 Range/Units 04:15 04:15 05:00 Hgb 9.0 L 8.9 L 8.8 L (11.4-16.0) gm/dL Hct 28.1 L 29.1 L 28.1 L (34.0-46.0) % 01/20/17 01/24/17 Range/Units 08:59 11:40 Hgb 8.6 L 8.6 L (11.4-16.0) gm/dL Hct 28.3 L 28.2 L (34.0-46.0) % Coagulation 01/12/17 Range/Units 12:10 INR 1.2 H (<1.2) Result Diagrams: 01/24/17 11:40 01/24/17 11:40 - Diagnostic results Knee x-ray: report reviewed, image reviewed (X-rays of bilateral knee show advanced severe degenerative joint disease and osteoarthritis, tricompartmental. No fractures or dislocations or lesions.) Assessment and Plan (1) Degenerative arthritis of knee, bilateral Narrative/Plan: This patient has been reviewed with Dr. Quiroz and agrees with the treatment plan. She is not able to take anti-inflammatories due to her anticoagulation medicine. She's tried therapy in the past which has failed. She is not an optimal candidate for a total knee replacement. Due to her significant discomfort and pain in both knees we've offered her an intra-articular injection of corticosteroid and lidocaine after obtaining approval from her admitting physician Dr. Woody She elected to receive the injections after given informed consent. She tolerated the injections well without complication which were performed utilizing sterile technique. 40 mg of Depo-Medrol and 4 mL of 1% lidocaine was injected into the intra-articular space of each knee. I advised her and her family on rest, compression, ice and analgesics. She may follow-up as an outpatient with Dr. Quiroz and/or myself. Status: Acute Time with Patient: Greater than 30 (In reviewing patient, examining patient, reviewing x-rays, administering procedure bilateral knee injections, reviewing case with Dr. Quiroz)
--- NOTE | 2017-01-25 14:07 | P.DS ---
Providers Date of admission: 01/12/17 15:57 Expected date of discharge: 01/25/17 Attending physician: Haley oWody Consults: 01/12/17 15:59 Consult Physician Urgent Consulting Provider: Gibson Saldaña Consult Reason/Comments: Medical management Do you want consulting provider notified?: Already Contacted 01/13/17 18:56 Consult Physician Routine Consulting Provider: Gene Valle Consult Reason/Comments: ICU management Do you want consulting provider notified?: Yes 01/13/17 18:59 Consult Physician Routine Consulting Provider: Sean Dailey Consult Reason/Comments: antibiotic management Do you want consulting provider notified?: Yes, Notify in am 01/15/17 12:09 Consult Physician Routine Consulting Provider: Samuel Valdovinos Consult Reason/Comments: - Do you want consulting provider notified?: Already Contacted 01/23/17 16:06 Consult Physician Routine Consulting Provider: Tono Quiroz Consult Reason/Comments: knee pain Do you want consulting provider notified?: Yes Primary care physician: Gibson Saldaña - Discharge Diagnosis(es) (1) Large bowel obstruction Current Visit: Yes Status: Resolved (2) Atrial fibrillation Current Visit: Yes Status: Acute (3) Hypokalemia Current Visit: Yes Status: Resolved (4) Hypomagnesemia syndrome Current Visit: Yes Status: Resolved (5) Hypotensive episode Current Visit: Yes Status: Acute (6) Renal failure syndrome Current Visit: Yes Status: Acute (7) Diverticular disease of colon Current Visit: Yes Status: Resolved (8) Dehydration Current Visit: Yes Status: Resolved (9) Protein-calorie malnutrition, moderate Current Visit: Yes Status: Acute Hospital Course: the patient presented with abdominal pain and distention.she had a workup in the emergency department suggestive of a large bowel obstruction. She was hydrated and had her electrolytes corrected. The following day she went in for an attempted sigmoidoscopy with decompression. There findings were of a complete large bowel obstruction.she was subsequently taken to the operative suite where she underwent a Gardiner's procedure. She had a firm hard mass in the sigmoid colon. Postoperatively she was taken to the intensive care unit. She had evidence of Sirs. She was empirically treated for sepsis. No cultures grown anything. There was no acute intra-abdominal infectious process either.she had hypotension and hypoperfusion due to the bowel obstruction with hypovolemia. She slowly progressed. She was able to be weaned off the ventilator and pressors.she was transferred to the medical floor. She began having function out her colostomy. Oral intake was still extremely poor. It had been poor preoperatively. She was having some knee pain so orthopedics saw her and did knee injections. It was felt she needed transfer for short-term rehabilitation prior to going back home. Pertinent Studies: CT, x-rays, laboratory Procedures: laparotomy with Gardiner's procedure Patient Condition at Discharge: Fair Plan - Discharge Summary New Discharge Prescriptions: New traMADol HCl [Ultram] 50 mg PO Q6H PRN #20 tab PRN Reason: Pain Megestrol [Megace] 400 mg PO BID #600 dose Artificial Tears-Hypromellose [Artificial Tear Drops] 1 drops BOTH EYES Q4HR PRN bottle PRN Reason: Dry Eye(S) Digoxin [Lanoxin] 62.5 mcg PO DAILY #30 dose Continue Omeprazole [PriLOSEC] 20 mg PO AC-BRKFST Apixaban [Eliquis] 2.5 mg PO BID Acetaminophen Tab [Tylenol] 500 mg PO Q6H PRN PRN Reason: Pain Discontinued Potassium Chloride 8 meq PO DAILY Atorvastatin Calcium [Lipitor] 20 mg PO HS Discharge Medication List Omeprazole [PriLOSEC] 20 mg PO AC-BRKFST 03/16/14 [History] Acetaminophen Tab [Tylenol] 500 mg PO Q6H PRN 01/12/17 [History] Apixaban [Eliquis] 2.5 mg PO BID 01/12/17 [History] traMADol HCl [Ultram] 50 mg PO Q6H PRN #20 tab 01/24/17 [Rx] Artificial Tears-Hypromellose [Artificial Tear Drops] 1 drops BOTH EYES Q4HR PRN bottle 01/25/17 [Rx] Digoxin [Lanoxin] 62.5 mcg PO DAILY #30 dose 01/25/17 [Rx] Megestrol [Megace] 400 mg PO BID #600 dose 01/25/17 [Rx] Follow up Appointment(s)/Referral(s): Gibson Saldaña MD [Primary Care Provider] - 01/27/17 3:15 pm Sd Oleary MD [STAFF PHYSICIAN] - 02/03/17 1:30 pm ([facility] office) Haley Woody DO [Doctor of Osteopathic Medicine] - 02/02/17 1:00 pm Tono Quiroz MD [STAFF PHYSICIAN] - 2 Weeks Patient Instructions/Handouts: Colostomy Care (GEN) Activity/Diet/Wound Care/Special Instructions: Last Ostomy Appliance Change: Current Colostomy Care & Products May shower daily. Encourage oral intake and supplements. Discharge Disposition: TRANSFER TO SNF/ECF
[2017-01-25 14:32] VITALS: BP 90/85; RESP 15
--- NOTE | 2017-01-25 17:53 | PN ---
PROGRESS NOTE CHIEF COMPLAINT: Re-evaluation. HISTORY OF PRESENT ILLNESS: This is an 86-year-old female who was admitted to the hospital with a bowel obstruction. She is actually doing better. She is not eating much, though. REVIEW OF SYSTEMS: NEURO: Denies any headaches, dizziness. PSYCH: No anxiety. CARDIAC: No chest pain, angina, palpitation. RESPIRATORY: Denies shortness of breath, cough. GI: No nausea, vomiting. Appetite poor. No abdominal pain. Bowels functioning. Patient has a functioning colostomy. She still has a SURYA drain. EXTREMITIES: Has knee pains. CONSTITUTIONAL: No fever, chills. PHYSICAL EXAMINATION: Elderly female, at present in no distress. VITAL SIGNS: Temperature 99.8, pulse 82, respirations 16, blood pressure 90/85. Blood pressure 87/48 was recorded earlier. Pulse ox 97% on 2 L. HEENT: Normocephalic. NECK: No JVD. CHEST: Clear to auscultation. CARDIAC: Normal S1, S2 with no gallops. Irregularly irregular rhythm. Systolic murmur 2/6, left sternal border. ABDOMEN: Soft. Bowel sounds present. The patient has a SURYA drain. Extremities reveal trace edema. NEUROLOGICALLY: Awake, alert, oriented. Moves both upper extremities fairly well. Lower extremities have pain in the knee joints. CONSTITUTIONAL: Pain in the knee joints. LABORATORY ASSESSMENT: Blood sugar of 93 this morning. ASSESSMENT: 1. Anemia secondary to acute blood loss. 2. History of chronic kidney disease. 3. Status post bowel surgery. 4. Chronic atrial fibrillation. 5. Debility. 6. 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 PLAN: Continue present medical regimen. Patient's condition was discussed with the patient. Prognosis is guarded. The patient is awaiting transfer to a nursing facility. MMODL / IJN: [id number] /
--- NOTE | 2017-01-25 22:14 | PN ---
PROGRESS NOTE REASON FOR FOLLOWUP: Abdominal infection. INTERVAL HISTORY: The patient was seen on rounds early this afternoon. The patient has been afebrile, has been breathing comfortably. No chest pain, shortness of breath or cough or abdominal pain. PHYSICAL EXAMINATION: Blood pressure is 90/85 with a pulse of 82, temperature of 99.8. She was 98% on room air. General description is an elderly female lying in bed in no distress. RESPIRATORY SYSTEM: Unlabored breathing. Clear to auscultation anteriorly. HEART: S1, S2. Regular rate and rhythm. ABDOMEN: Soft. No tenderness. LABS: No new labs have been obtained today. DIAGNOSTIC IMPRESSION AND PLAN: Patient with a possible abdominal infection in a patient who did have a sigmoid obstruction, status post diverting colostomy and repair of the ureteral injury. The patient has received about 12 days of antibiotic therapy, which should have been enough. She should be monitored closely. MMODL / IJN: [id number] /
== END 2017-01-25 15:23 | DRG 330 ==
LOC: EC 11:44 → 6SEL 15:57 → 6ICU 01-13 16:39 → 3SUR 01-19 20:26
PROVIDERS: ADMIT Surgery; ATTEND Surgery
PROC: 0DBP0ZZ Excision of Rectum, Open Approach (ICD-10-PCS; 2017-01-13)
PROC: 0T1 Urinary System, Bypass (ICD-10-PCS; 2017-01-13)
PROC: 0DJD8ZZ Inspection of Lower Intestinal Tract, Via Natural or Artificial Opening Endoscopic (ICD-10-PCS; 2017-01-13)
PROC: 0DTN0ZZ Resection of Sigmoid Colon, Open Approach (ICD-10-PCS; principal; 2017-01-13 09:05)
PROC: 3E0U33Z Introduction of Anti-inflammatory into Joints, Percutaneous Approach (ICD-10-PCS; 2017-01-25)
DX: K56.609 Unspecified intestinal obstruction, unspecified as to partial versus complete obstruction (principal); N17.9 Acute kidney failure, unspecified; J90 Pleural effusion, not elsewhere classified; E87.2 Acidosis; E44.0 Moderate protein-calorie malnutrition; D62 Acute posthemorrhagic anemia; N99.71 Accidental puncture and laceration of a genitourinary system organ or structure during a genitourinary system procedure; I48.1 Persistent atrial fibrillation; E87.1 Hypo-osmolality and hyponatremia; J98.11 Atelectasis; I95.9 Hypotension, unspecified; E11.22 Type 2 diabetes mellitus with diabetic chronic kidney disease; I13.10 Hypertensive heart and chronic kidney disease without heart failure, with stage 1 through stage 4 chronic kidney disease, or unspecified chronic kidney disease; E11.65 Type 2 diabetes mellitus with hyperglycemia; I48.2 Chronic atrial fibrillation; E83.42 Hypomagnesemia; E78.5 Hyperlipidemia, unspecified; E87.6 Hypokalemia; E86.0 Dehydration; I08.1 Rheumatic disorders of both mitral and tricuspid valves; E87.8 Other disorders of electrolyte and fluid balance, not elsewhere classified; K21.9 Gastro-esophageal reflux disease without esophagitis; K57.30 Diverticulosis of large intestine without perforation or abscess without bleeding; N18.3 Chronic kidney disease, stage 3 (moderate); R13.10 Dysphagia, unspecified; G89.29 Other chronic pain; M17.0 Bilateral primary osteoarthritis of knee; I83.90 Asymptomatic varicose veins of unspecified lower extremity; K44.9 Diaphragmatic hernia without obstruction or gangrene; M54.9 Dorsalgia, unspecified; Z79.01 Long term (current) use of anticoagulants; Z79.899 Other long term (current) drug therapy; Z82.49 Family history of ischemic heart disease and other diseases of the circulatory system; Y92.234 Operating room of hospital as the place of occurrence of the external cause; Y65.8 Other specified misadventures during surgical and medical care
CPT/HCPCS: 36415; 43753; 45330; 70450; 71010; 71020; 74000; 74176; 74420; 80048; 80053; 80162; 80202; 81001; 82140; 82150; 82330; 82533; 82550; 82553; 82805; 83605; 83690; 83735; 84100; 84132; 84484; 85025; 85027; 85610; 85730; 86850; 86900; 86901; 86920; 87040; 87070; 87086; 87205; 88307; 88342; 93005; 93306; 94002; 94003; 94640; 94760; 96361; 96365; 96375; 99291

== ENCOUNTER 2017-01-30 18:14 | Emergency (ER) | payer MEDICARE, BC ==
--- NOTE | 2017-01-30 19:46 | ED ---
Fall HPI - General Chief Complaint: Fall Stated Complaint: Fall Time Seen by Provider: 01/30/17 18:32 Source: EMS Mode of arrival: EMS - History of Present Illness Initial Comments: 86-year-old female patient presents for evaluation after expressing a fall. Patient is currently a resident of [facility] after undergoing abdominal surgery at the end of December. Patient is unsteady on her feet and generally needs assistance to ambulate. Patient attempted to self transfer at [facility] prior to arrival here and did experience a fall in the bathroom. Patient states she did possibly strike her head. She denies any loss of consciousness. She denies any pain or injuries anywhere else. Family is with patient states that she does take Eliquis. She is somewhat of a poor historian however family states that she is normally confused as she does have dementia. Patient denies any headache, neck pain, back pain, chest pain, shortness of breath, dizziness, weakness, abdominal pain, nausea, vomiting, or difficulties with bowel movements or urination. - Related Data Home Medications Medication Instructions Recorded Confirmed Omeprazole [PriLOSEC] 20 mg PO AC-BRKFST 03/16/14 01/30/17 Acetaminophen Tab [Tylenol] 500 mg PO Q6H PRN 01/12/17 01/30/17 Apixaban [Eliquis] 2.5 mg PO BID 01/12/17 01/30/17 Bisacodyl [Dulcolax] 10 mg RECTAL DAILY PRN 01/30/17 01/30/17 Lactose-Reduced Food [Ensure Plus] 1 can PO TID 01/30/17 01/30/17 Magnesium Hydroxide [Milk of 2,400 mg PO DAILY PRN 01/30/17 01/30/17 Magnesia] Miconazole 3 Suppository 1 tab VAGINAL BID 01/30/17 01/30/17 Na Phos,M-B/Na Phos,Di-Ba [Fleet 133 ml RECTAL DAILY PRN 01/30/17 01/30/17 Adult] Triad 1 applic TOPICAL BID 01/30/17 01/30/17 Previous Rx's Medication Instructions Recorded traMADol HCl [Ultram] 50 mg PO Q6H PRN #20 tab 01/24/17 Artificial Tears-Hypromellose 1 drops BOTH EYES Q4HR PRN bottle 01/25/17 [Artificial Tear Drops] Digoxin [Lanoxin] 62.5 mcg PO DAILY #30 dose 01/25/17 Megestrol [Megace] 400 mg PO BID #600 dose 01/25/17 Allergies Allergy/AdvReac Type Severity Reaction Status Date / Time No Known Allergies Allergy Verified 01/30/17 18:47 Review of Systems ROS Statement: Those systems with pertinent positive or pertinent negative responses have been documented in the HPI. ROS Other: All systems not noted in ROS Statement are negative. Past Medical History Past Medical History: Atrial Fibrillation, GERD/Reflux, Hyperlipidemia, Hypertension, Osteoarthritis (OA) Additional Past Medical History / Comment(s): varicose veins, arthritis, occasional back pain, diverticular disease, hiatal hernia History of Any Multi-Drug Resistant Organisms: None Reported Past Surgical History: Appendectomy, Cholecystectomy, Tonsillectomy Additional Past Surgical History / Comment(s): EGD/colonoscopy. bowel resection Past Anesthesia/Blood Transfusion Reactions: No Reported Reaction, Motion Sickness Past Psychological History: No Psychological Hx Reported Smoking Status: Never smoker Past Alcohol Use History: None Reported Past Drug Use History: None Reported - Past Family History Father Family Medical History: Myocardial Infarction ([place]) Additional Family Medical History / Comment(s): Father at the age of 62 yrs from a [place]. Mother Family Medical History: No Reported History Additional Family Medical History / Comment(s): Mother was healthy and at the age of 89yrs. General Exam Limitations: physical limitation General appearance: alert, in no apparent distress, other (Physical well- developed, well-nourished adult female patient in no acute distress. Vital signs upon presentation are temperature 98.5F, pulse 82, respirations 18, blood pressure 90/57, pulse ox 98% on room air.) Head exam: Present: atraumatic, normocephalic, normal inspection Eye exam: Present: normal appearance, PERRL, EOMI. Absent: scleral icterus, conjunctival injection, periorbital swelling ENT exam: Present: normal exam, normal oropharynx, mucous membranes moist, TM's normal bilaterally Neck exam: Present: normal inspection, full ROM, other (Nontender, no step-off, no deformity to firm midline palpation of the posterior cervical spine. Full range of motion without pain or limitation.). Absent: tenderness, meningismus, lymphadenopathy Respiratory exam: Present: normal lung sounds bilaterally. Absent: respiratory distress, wheezes, rales, rhonchi, stridor Cardiovascular Exam: Present: regular rate, normal rhythm, normal heart sounds. Absent: systolic murmur, diastolic murmur, rubs, gallop, clicks GI/Abdominal exam: Present: soft, normal bowel sounds. Absent: distended, tenderness, guarding, rebound, rigid Extremities exam: Present: normal inspection, full ROM, normal capillary refill , pedal edema (One plus pedal edema bilaterally. ), other (Pedal and posttibial pulses are intact and 2+ bilaterally. Radial pulses are intact and 2 + bilaterally. Skin is pink, warm, and dry. Cap refill less than 3 seconds.). Absent: tenderness, joint swelling, calf tenderness Back exam: Present: normal inspection, other (Nontender, no step-off, no deformity to firm midline palpation of the thoracic and lumbar vertebrae. Full range of motion without pain or limitation.). Absent: tenderness Neurological exam: Present: alert, CN II-XII intact. Absent: oriented X3 ( Oriented 2 only. ) Psychiatric exam: Present: normal affect, normal mood Skin exam: Present: warm, dry, intact, normal color. Absent: rash Course Vital Signs 01/30/17 01/30/17 01/30/17 18:15 19:50 20:38 Temperature 98.5 F 98.0 F Pulse Rate 82 81 81 Respiratory 18 16 16 Rate Blood Pressure 90/57 105/56 104/57 O2 Sat by Pulse 98 98 98 Oximetry Medical Decision Making - Medical Decision Making 86-year-old female patient presented for evaluation after expressing a fall and [facility] nursing [facility] re[facility]. Patient physical exam is unremarkable. Patient denied any injuries or pain. She is unsure if she hit her head. She does take Eliquis so we did perform a CT of the brain and C-spine which was negative for any acute osseous abnormality or intracranial abnormalities. Patient was neurologically intact without any focal deficits. Re-exam and reevaluation at the end of her visit again was unremarkable. She will be discharged home back to [facility] nursing and re[facility]. Family will be transferring. They were instructed regarding signs or symptoms of worsening head injury. Instructed to follow-up with primary care physician for recheck in 1-2 days. Instructed to return here immediately for any new, worsening, or concerning symptoms. Were informed of findings and questions were answered. They verbalize understanding and agree with this plan. - Radiology Data Radiology results: report reviewed, image reviewed CT of the brain and C-spine without contrast report reviewed in its entirety, impression by Dr. Graham shows no acute fracture or dislocation evident in the cervical spine. No acute intracranial hemorrhage, mass effect, or midline shift is seen. Disposition Clinical Impression: Head injury, Fall Disposition: HOME SELF-CARE Condition: Good Instructions: Fall Prevention for Older Adults (ED), Head Injury (ED) Additional Instructions: Monitor for signs or symptoms of worsening head injury including but not limited to increasing headache, blurred vision, double vision, nausea, vomiting , dizziness, weakness, or confusion. Follow-up with the primary care physician for recheck in 1-2 days. Return here immediately for any new, worsening, or concerning symptoms. Referrals: Rishi Crocker MD [Primary Care Provider] - 1-2 days Time of Disposition: 20:06
[2017-01-30 19:52] VITALS: PULSE 81; RESP 16
--- NOTE | 2017-01-30 19:53 | CT ---
EXAMINATION TYPE: CT brain magda smyth DATE OF EXAM: 01/30/2017 COMPARISON: 01/12/2017 HISTORY: Fall today with posterior injury CT DLP: [id number] mGycm Automated exposure control for dose reduction was used. TECHNIQUE: CT scan of the head and cervical spine are performed without contrast. FINDINGS: There is no skull fracture or acute intracranial hemorrhage, mass, mass effect, definite new attenuation defect, or midline shift. The ventricles and sulci are within normal limits in size. The globes are intact and the visualized sinuses are clear. Cervical spine is visualized in its entirety from C1 through upper thoracic levels and demonstrates s atisfactory alignment without evidence of acute fracture or dislocation. Prevertebral soft tissue ap pears within normal limits. The C1-C2 articulation is unremarkable. IMPRESSION: 1. There is no acute fracture or dislocation evident in the cervical spine. 2. No acute intracranial hemorrhage, mass effect, or midline shift is seen.
[2017-01-30 20:39] VITALS: BP 104/57; TEMP 98
== END 2017-01-30 20:40 | disposition home or self-care (01) ==
LOC: EC 18:14
DX: S09.90XA Unspecified injury of head, initial encounter (principal); Z79.01 Long term (current) use of anticoagulants; Z79.899 Other long term (current) drug therapy; W19.XXXA Unspecified fall, initial encounter; Y92.121 Bathroom in nursing home as the place of occurrence of the external cause
CPT/HCPCS: 70450; 72125; 99284